=== PATIENT | female | born 1945 | race Caucasian/White ===

== ENCOUNTER 2016-11-27 16:41 | Inpatient (IN) | payer MEDICARE ==
[2016-11-27] MEDS ORDERED: AZITHROMYCIN IV 500 MG in SODIUM CHLORIDE 0.9% 250ML 250 ML IVPB ONE (17:34)
[2016-11-27] MEDS ORDERED: IPRATROPIUM/ALBUTEROL 3 ML VIAL NEB ONE (17:34)
[2016-11-27] MEDS ORDERED: cefTRIAXone SODIUM 1 GM in SODIUM CHL 0.9% 50ML MIN-BAG+ 50 ML IVPB ONE (17:34)
[2016-11-27] MEDS ORDERED: MAGNESIUM SULFATE PREMIX 2GM 2 GM in PREMIX BAG 1 BAG IVPB ONE (17:36)
[2016-11-27] MEDS ORDERED: methylPREDNISolone SODIUM SUC 125 MG/2 ML VIAL IV ONE (17:36)
[2016-11-27] MEDS ORDERED: MAGNESIUM SULFATE PREMIX 2GM 50 ML IVPB ONE (18:10)
--- NOTE | 2016-11-27 18:11 | ED.PDOC ---
History of Present Illness - General Chief Complaint: Respiratory Problem Stated Complaint: shortness of breath Time Seen by Provider: 11/27/16 17:07 Source: patient, family Exam Limitations: no limitations - History of Present Illness Initial Comments: PT SENT TO ED BY PCP AFTER HAVING AN OUTPATIENT CXR DONE TODAY THAT REVEALED A LLL INFILTRATE. PT HAS HAD PROGRESSIVELY WORSENING SOB AND COUGH FOR THE PAST 2 WEEKS NOT RELIEVED WITH OTC MEDS. PT HAS H/O COPD AND USES O2 AT NIGHT BUT HAS NEEDED IT MORE OFTEN SINCE ONSET OF SYMPTOMS. Timing/Duration: constant, getting worse Severity: moderate Activities at Onset: none Possible Cause: chronic episodes Improving Factors: rest Worsening Factors: movement Associated Symptoms: cough, wheezing Allergies/Adverse Reactions: Allergies Cimetidine [From [facility]] Allergy (Mild, Verified 08/03/15 08:59) Hives Codeine Allergy (Mild, Verified 08/03/15 08:59) Hives Hydrocodone Allergy (Mild, Verified 08/03/15 08:59) Vomitting Penicillins Allergy (Mild, Verified 08/03/15 08:59) Hives Sulfa Antibiotics Allergy (Mild, Verified 08/03/15 08:59) Hives Tetanus Immune Globulin Allergy (Verified 08/03/15 08:59) allergic to "human tetanus" Home Medications: Ambulatory Orders Cyclobenzaprine HCl [Flexeril] 10 mg PO BID 01/10/15 Furosemide 40 mg PO DAILY 01/10/15 Glimepiride 1 mg PO DAILY 01/10/15 Lisinopril 40 mg PO DAILY 01/10/15 Metoprolol Tartrate 100 mg PO QAM 01/10/15 Potassium Chloride [Klor-Con] 20 meq PO QAM 01/10/15 Simvastatin 40 mg PO QAM 01/10/15 Verapamil HCl 80 mg PO BID 01/10/15 Warfarin Sodium 2 mg PO DAILY 01/10/15 Xanax mg PO BID 01/10/15 Albuterol Sulfate [Proair Hfa] 2 puff INH Q6H PRN #1 01/11/15 Review of Systems - Review of Systems Constitutional: Denies: chills, fever EENTM: Denies: ear pain, throat pain Respiratory: States: see HPI, cough, short of breath, wheezing Cardiology: Denies: chest pain, palpitations Gastrointestinal/Abdominal: Denies: nausea, vomiting Musculoskeletal: Denies: joint pain, muscle pain Skin: Denies: change in color, dryness Neurological: States: no symptoms reported Endocrine: States: no symptoms reported Past Medical History (General) - Patient Medical History Hx Stroke: Yes - 2009 Hx of COPD: Yes Hx Congestive Heart Failure: No Hx Hypertension: Yes Hx Diabetes: Yes Surgical History: appendectomy, cholecystectomy, Hysterectomy - Vaccination History Hx Influenza Vaccination: Yes Hx Pneumococcal Vaccination: Yes - Social History Hx Tobacco Use: Yes Family Medical History - Family History Mother Family History: Unknown Living Status: Hx Family Congestive Heart Failure: Yes Hx Family Hypertension: Yes Hx Family Diabetes: Yes Hx Family Cancer: Yes - breast Physical Exam - Physical Exam General Appearance: Ill Appearing Eyes, Ears, Nose, Throat Exam: normal ENT inspection Neck: normal inspection Respiratory: wheezing - DIFFUSE Cardiovascular/Chest: regular rate, rhythm, no murmur Gastrointestinal/Abdominal: non tender, soft Extremity: pedal edema - 1+ Neurologic: normal mood/affect, oriented x 3 Skin Exam: normal color, warm/dry Progress - EKG/XRAY/CT EKG: Sinus - 74BPM, LAFB, NL AXIS, no ST T wave changes Xray Comments: OUTPATIENT XRAY SHOWS LLL INFILTRATE Departure - Departure Clinical Impression: COPD exacerbation Pneumonia Qualifiers: Pneumonia type: due to unspecified organism Laterality: left Lung location: lower lobe of lung Qualifier Code: (J18.9) Pneumonia, unspecified organism Time of Disposition: : Disposition: Admit Patient Condition: Fair Departure Forms: ED Discharge - Pt. Copy, Patient Portal Self Enrollment Home Medications: Ambulatory Orders Cyclobenzaprine HCl [Flexeril] 10 mg PO BID 01/10/15 Furosemide 40 mg PO DAILY 01/10/15 Glimepiride 1 mg PO DAILY 01/10/15 Lisinopril 40 mg PO DAILY 01/10/15 Metoprolol Tartrate 100 mg PO QAM 01/10/15 Potassium Chloride [Klor-Con] 20 meq PO QAM 01/10/15 Simvastatin 40 mg PO QAM 01/10/15 Verapamil HCl 80 mg PO BID 01/10/15 Warfarin Sodium 2 mg PO DAILY 01/10/15 Xanax mg PO BID 01/10/15 Albuterol Sulfate [Proair Hfa] 2 puff INH Q6H PRN #1 01/11/15 Decision To Admit - Decistion To Admit Decision to Admit Reason: Admit from ER Decision to Admit Date: 11/27/16 - CASE DISCUSSED WITH DEMOND VALENTINE NP WHO AGREES TO ADMIT Decision to Admit Time: 19:27
[2016-11-27] MEDS ORDERED: SODIUM CHL 0.9% 50ML MIN-BAG+ 50 ML IVPB ONE (18:56)
[2016-11-27] MEDS ORDERED: cefTRIAXone SODIUM 1 GM VIAL ONE (18:56)
[2016-11-27] MEDS ORDERED: AZITHROMYCIN IV 500 MG VIAL IVPB ONE (18:59)
[2016-11-27] MEDS ORDERED: SODIUM CHLORIDE 0.9% 250ML 250 ML ONE (18:59)
[2016-11-27] MEDS ORDERED: SODIUM CHLORIDE 0.9% 100ML 0 ML IVPB ONE (19:01)
--- NOTE | 2016-11-27 20:10 | HP ---
SUPERVISING PHYSICIAN: Alistair Page MD CHIEF COMPLAINT: Shortness of breath. HISTORY OF PRESENT ILLNESS: Ms. Quesada is a 71-year-old, female patient who was referred to the Emergency Room from her primary care provider at [facility]. She was seen for upper respiratory symptoms that included a cough, worsening shortness of breath that had developed over this past weekend. The patient had been trying to treat herself at home with over- the-counter medications without any significant improvement. She went to the clinic and was seen by Caprice Kirkland who then referred her to the Emergency Room after a chest x-ray was completed that showed she had a left lower lobe infiltrative process concerning for pneumonia. The patient noted she continued to worsen over the last several days. She does use O2 at night, but has needed it more often during the day since onset of symptoms. Laboratory studies initially in the Emergency Department showed her to have a normal white count of 7.1, hemoglobin 13.2, hematocrit 40.2, differential without any shift. Chemistries showed sodium 137, potassium 3.4, liver functions all within normal limits. BUN 8, creatinine 1.12, BNP 77.5. Upon admission to the Emergency Department, she was showing low saturations on room air at 88% with some obvious labored respirations and diffuse wheezing that was audible, both inspiration and expiratory. She was given magnesium breathing treatments and started on antibiotics to include Rocephin and azithromycin along with blood cultures completed prior to antibiotic initiation and now is being admitted to the Medical/Surgical Floor for continuation of treatment of left lower lobe pneumonia. PAST MEDICAL HISTORY: 1. Chronic obstructive pulmonary disease. 2. 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 3. 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 The patient is on anticoagulation therapy including Coumadin. 4. Type 2 diabetes mellitus on oral therapy. 5. Gastroesophageal reflux disease. 6. Hyperlipidemia. 7. Hypertension. 8. Irritable bowel syndrome secondary to cholecystectomy. PAST SURGICAL HISTORY: 1. Appendectomy. 2. Cholecystectomy. 3. Hysterectomy. 4. Drainage of vulvar hematoma secondary to Coumadin therapy. HOME MEDICATIONS: 1. Verapamil 80 mg twice daily. 2. Simvastatin 40 mg at bedtime. 3. Potassium chloride 20 mEq q.a.m. 4. Metoprolol 1000 mg twice daily. 5. Albuterol inhaler 2 puffs inhaled q.6h. p.r.n. 6. Lisinopril 40 mg daily. 7. Glimepiride 1 mg at breakfast. 8. Lasix 40 mg twice daily. 9. Lomotil 2.5 mg q.i.d. as needed. 10. Flexeril 10 mg 3 times daily. 11. Warfarin 1 mg every other day. 12. Warfarin 2 mg every other day. 13. Xanax 0.5 mg twice daily. ALLERGIES: CIMETIDINE, CODEINE, HYDROCODONE, PENICILLINS, TETANUS, IMMUNOGLOBULIN, SULFA ANTIBIOTICS. FAMILY HISTORY: Mother is with unknown history with father being at 73 from a myocardial infarction. SOCIAL HISTORY: The patient is a retired, previous nurse aid. She lives in [place]. She is a current smoker, smokes approximately 1 to 5 cigarettes per day , and denies any alcohol or illicit drug use. REVIEW OF SYSTEMS: CONSTITUTIONAL: Denies any fevers, chills. HEENT: Denies ears pain, sore throat, runny nose. RESPIRATORY: As noted in history of present illness, cough, shortness of breath and severe wheezing. CARDIOVASCULAR: Denies chest pain or palpitations. Denies syncopal episodes. GASTROINTESTINAL: Denies nausea or vomiting. Denies diarrhea. NEUROLOGIC: Denies any syncopal episodes, but does have a history of previous cerebrovascular accidents with a left sided residual hemiparesis. PHYSICAL EXAMINATION: VITAL SIGNS: Admission vital signs showed temperature 97.9. Pulse 81. Blood pressure 140/68. Respirations 24. O2 saturation 88% on room air. Admission weight 76.7 kg. GENERAL: The patient appears quite ill with a very dramatic cough and audible wheezing, both inspiratory and expiratory, but she is alert. HEENT: Tympanic membranes clear bilaterally. Oropharynx is pink, mucous membranes mildly dry, but no lesions. NECK: No jugular venous distention noted. CHEST: Diffuse wheezing throughout all cuello with both inspiration and expiratory phase and extended expiratory effort. No rhonchi or rales noted. CARDIOVASCULAR: Regular rate and rhythm without any appreciable murmurs, gallops, or rubs. ABDOMEN: Obese, but soft, nontender. Positive bowel sounds. EXTREMITIES: 1+ pedal edema bilaterally. NEUROLOGIC: The patient is alert and oriented times three. Cranial nerves II- XII are grossly intact as assessed. Facial features are symmetrical. Extraocular movements are within normal limits. There is no nystagmus noted. LABORATORY: White count normal at 7.1, hemoglobin 13.2, hematocrit 40.2, platelet count 309,000, differential without left shift. Coags showed therapeutic INR of 2.550 with PT-T 39.6, PT 28.6. Chemistries showed just a low potassium of 3.4, BUN 8, creatinine 1.12, glucose 120. Liver functions all within normal limits. Urinalysis pending. MICROBIOLOGY: Sputum culture pending. Blood cultures pending. RADIOLOGY: EKG showed sinus rhythm of 74 beats per minute with a left anterior fascicular block. No ST or T wave changes. Outpatient x-ray per radiology interpretation showed a left lower lobe infiltrative process. ASSESSMENT: 1. Acute exacerbation of chronic obstructive pulmonary disease with radiographic evidence concerning for a right lower lobe pneumonia, likely community acquired. 2. Mild hypoxia as noted on initial triage vital signs with the patient satting 88% on room air. 3. History of hypertension. 4. Gastroesophageal reflux disease. 5. Type 2 diabetes mellitus. 6. 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 7. 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 PLAN: The patient will be admitted to the Medical/Surgical Floor for continued treatment and evaluation. She was started on antibiotics after blood cultures were completed that included antibiotics with both Rocephin and azithromycin. We will await sputum culture to help further target antibiotic therapy as possible and continue with current antibiotics until that point. Anticipate length of stay 2 to 3 days. Again, she will be provided with aggressive pulmonary hygiene and repeat laboratory studies and x-rays in the morning for close repeat clinical evaluation. Once her home medications have been updated and verified, we will continue those as previously directed. Until discharge, we will continue to monitor the patient closely and treat appropriately. Once the patient can be discharged home, she will certainly need close clinical followup with her primary care provider, Dr. Ly. #[id number] [facility]
[2016-11-27] MEDS ORDERED: SODIUM CHLORIDE 0.9% (FLUSH) 10 ML SYG IV PRN (21:01)
[2016-11-27] MEDS ORDERED: ACETAMINOPHEN 325 MG TAB PO PRN (21:01)
[2016-11-27] MEDS ORDERED: KCL 20 MEQ/NS 1,000 ML IVS PRN (21:08)
[2016-11-27] MEDS ORDERED: DEXTROSE 50% 25 GM/50 ML SYG IV PRN (21:09)
[2016-11-27] MEDS ORDERED: GLUCAGON INJ 1 MG VIAL SUBCU PRN (21:09)
[2016-11-27] MEDS: IPRATROPIUM/ALBUTEROL 3 ML VIAL INH SCH (21:14)
[2016-11-27] MEDS ORDERED: IV SET AND CAP CHANGE INJ INJ SCH (21:30)
[2016-11-27] MEDS: ALBUTEROL SULFATE 2.5 MG/3 ML VIAL NEB PRN (22:16)
[2016-11-27] MEDS ORDERED: BENZOCAINE-MENTH LOZ (CEPACOL) 1 EA LOZ MT PRN (22:35)
--- NOTE | 2016-11-27 22:38 | PCM.CORE ---
Physician DVT/VTE - Prophylaxis Currently: Patient already on anticoagulation therapy - Nurse DVT Assessment & Total Each Risk Factor Represents 3 Points: Hx of DVT/PE Each Risk Factor Represents 2 Points: Age 60-74 Each Risk Factor Represents 1 Point: Hx of smoking past year Each Risk Factor is 1 Point: Hx of Inflammatory Bowel Disease, Obesity (BMI >25) , Serious Lung disease (pnemonia <1month, COPD, emphysema,etc) DVT Assessment Score: 9 - 5 or more Very High Risk Treatments: Early Ambulation *, Sequential Compression Device Pharmacological: Warfarin daily
[2016-11-27] MEDS: methylPREDNISolone SODIUM SUC 125 MG/2 ML VIAL IV SCH (23:38)
[2016-11-27] MEDS: BENZONATATE PERLES 100 MG CAP PO SCH (23:39)
[2016-11-27] MEDS: guaiFENesin ER TAB 600 MG TAB PO SCH (23:39)
[2016-11-28] MEDS: ALBUTEROL SULFATE 2.5 MG/3 ML VIAL NEB PRN (01:49)
[2016-11-28] MEDS ORDERED: ALPRAZolam 0.5 MG TAB PO ONE (03:30)
[2016-11-28] MEDS: methylPREDNISolone SODIUM SUC 125 MG/2 ML VIAL IV SCH ×4 (04:54→23:03)
[2016-11-28] MEDS: PANTOPRAZOLE SODIUM IV 40 MG VIAL IV SCH (06:03)
[2016-11-28] MEDS: INSULIN LISPRO 100 UNITS/ML PEN SUBCU SCH ×4 (07:37→21:05)
--- NOTE | 2016-11-28 07:44 | RAD ---
EXAM DESCRIPTION: Chest,2 Views CLINICAL HISTORY: Pneumonia COMPARISON: 08/03/2015 TECHNIQUE: Two-views of the chest. FINDINGS: Heart size is normal. Slightly coarsened interstitial markings. No pulmonary edema, alveolar consolidation or pleural effusion.. No acute osseous injury. IMPRESSION: Mildly coarsened interstitium. Lungs are slightly hyperinflated. No acute/focal infiltrate Electronically signed by: Prakash Mckinney MD 11/28/2016 7:43 AM CDT
[2016-11-28] MEDS: IPRATROPIUM/ALBUTEROL 3 ML VIAL INH SCH (08:20)
[2016-11-28] MEDS ORDERED: SODIUM CHL 0.9% 50ML VIAL 9 ML, ALBUTEROL SULFATE NEBS 7.5 MG, IPRATROPIUM BROMIDE NEBS... NEB ONE ×3 (08:47)
[2016-11-28] MEDS: BENZONATATE PERLES 100 MG CAP PO SCH ×3 (08:54→20:31)
[2016-11-28] MEDS: guaiFENesin ER TAB 600 MG TAB PO SCH ×2 (08:54→20:31)
[2016-11-28] MEDS: SODIUM CHLORIDE 0.9% (FLUSH) 10 ML SYG IV SCH ×2 (09:30→20:31)
[2016-11-28] MEDS ORDERED: IPRATROPIUM BROMIDE NEBS 0.5 MG/2.5 ML VIAL NEB ONE (09:49)
[2016-11-28] MEDS: ALPRAZolam 0.5 MG TAB PO PRN ×2 (10:23→17:03)
[2016-11-28] MEDS ORDERED: LEVALBUTEROL NEBS 1.25 MG/3 ML VIAL NEB PRN ×2 (15:02→15:30)
[2016-11-28] MEDS ORDERED: LEVALBUTEROL NEBS 1.25 MG/3 ML VIAL NEB SCH (16:00)
[2016-11-28] MEDS ORDERED: SODIUM CHLORIDE 0.9% 250ML 250 ML ONE (16:05)
[2016-11-28] MEDS ORDERED: cefTRIAXone SODIUM 1 GM VIAL ONE (16:05)
[2016-11-28] MEDS ORDERED: SODIUM CHL 0.9% 50ML MIN-BAG+ 50 ML IVPB ONE (16:05)
[2016-11-28] MEDS ORDERED: AZITHROMYCIN IV 500 MG VIAL IVPB ONE (16:06)
[2016-11-28] MEDS: LEVALBUTEROL NEBS 1.25 MG/3 ML VIAL NEB SCH (16:15)
[2016-11-28] MEDS: cefTRIAXone SODIUM 1 GM in SODIUM CHL 0.9% 50ML MIN-BAG+ 50 ML IVPB SCH (16:53)
[2016-11-28] MEDS: AZITHROMYCIN IV 500 MG in SODIUM CHLORIDE 0.9% 250ML 250 ML IVPB SCH (17:59)
[2016-11-28] MEDS ORDERED: DIPHENOXYLATE HCL/ATROPINE 2.5 MG TAB PO PRN (18:11)
[2016-11-28] MEDS ORDERED: NON-FORMULARY MEDICATION 1 EA MIS (Metoprolol Tartrate [Metoprolol Tartrate] 100 MG) PO SCH (18:12)
[2016-11-28] MEDS ORDERED: VERAPAMIL HCL 80 MG PO SCH (18:12)
[2016-11-28] MEDS: METOPROLOL TARTRATE 50 MG TAB PO SCH (18:37)
[2016-11-28] MEDS ORDERED: SIMVASTATIN 20 MG TAB ONE (19:31)
[2016-11-28] MEDS: CYCLOBENZAPRINE HCL 10 MG TAB PO SCH (20:31)
[2016-11-28] MEDS: VERAPAMIL HCL 40 MG TAB PO SCH (20:31)
[2016-11-28] MEDS: ALPRAZolam 0.5 MG TAB PO SCH (20:33)
[2016-11-28] MEDS ORDERED: NON-FORMULARY MEDICATION 1 EA MIS (Simvastatin [Simvastatin] 40 MG) PO SCH (21:00)
--- NOTE | 2016-11-28 21:25 | PN ---
DATE: 11/28/16 SUPERVISING PHYSICIAN: Prakash Page M.D. SUBJECTIVE: The patient continues to have significant shortness of breath and wheezing this morning, although she remains afebrile. She still has thick sputum and is requiring aggressive pulmonary hygiene. OBJECTIVE: VITAL SIGNS: T max 98.1, pulse 108, blood pressure 155/73, respirations 22, satting 92% on nasal cannula at 2 liters. I's and O's show a the patient balance of 60 with 1260 in, 1200 out. Weight 79.4 kg. CHEST: Diffuse wheezing and rhonchi heard throughout with decreased aeration towards the bases. HEART: Showing a tachycardic rhythm. ABDOMEN: Obese but soft, non- tender. Positive bowel sounds. EXTREMITIES: No clubbing, cyanosis or edema. NEUROLOGIC: She is alert and oriented times three. LABORATORY: White count remains normal at 9.0, hemoglobin 12.8, hematocrit 36.9 , platelet count 175,000. Differential shows a left shift now, although she has been started on Solu-Medrol. Chemistries this morning showed a low potassium of 3.5 with sodium 132 and BUN 11 with creatinine 1.1. Magnesium was normal at 2.0, glucose has been elevated at 229 to 287. MICROBIOLOGY: Sputum culture is pending. Blood cultures are pending. RADIOLOGY: Repeat chest x-ray two view this morning per radiology interpretation shows a mildly coarsened interstitium. Lungs slightly hyperventilated with no acute focal infiltrates. ASSESSMENT: 1. Acute exacerbation of chronic obstructive pulmonary disease with radiographic evidence concerning for a right lower lobe pneumonia, likely community acquired initially on admission with the patient having been started on Rocephin and Azithromycin. 2. Hypoxia on admission with the patient satting 88% initially on room air showing improvement after supplemental oxygen and continued DuoNeb treatments. 3. History of hypertension. 4. Sinus tachycardic noticed on keno writer complicated by delay in restarting home medications to include beta blockers and additional side effects from ongoing Albuterol treatments. 5. History of hypertension. 6. Gastroesophageal reflux disease. 7. Type 2 diabetes mellitus. 8. 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 9. 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 PLAN: The patient continues to show a little improvement this morning. Will try a continuous DuoNeb treatment low dose initially and closely monitor. The patient will be on telemetry. She will continue with antibiotic therapy to include Rocephin and Azithromycin. Will await sputum culture to further assist in antibiotic therapy once completed. Will continue with aggressive pulmonary hygiene and follow the patient closely with repeat radiographic studies and laboratory studies in the morning. Her medications have finally been updated in the computer and reinitiated. Will closely monitor this and plan to change the patient from DuoNeb treatments to Xopenex treatments in efforts to decrease some of the increasing heart rate. Once the patient is clinically able to be discharged, she will need close clinical followup in the outpatient setting with her primary care provider, Dr. Ly. #[id number] [facility]
[2016-11-29] MEDS: methylPREDNISolone SODIUM SUC 125 MG/2 ML VIAL IV SCH ×4 (04:48→23:41)
[2016-11-29] MEDS: PANTOPRAZOLE SODIUM IV 40 MG VIAL IV SCH (06:11)
[2016-11-29] MEDS: LEVALBUTEROL NEBS 1.25 MG/3 ML VIAL NEB SCH (07:35)
[2016-11-29] MEDS ORDERED: LISINOPRIL 10 MG TAB ONE ×2 (07:40→19:45)
[2016-11-29] MEDS: INSULIN LISPRO 100 UNITS/ML PEN SUBCU SCH ×6 (07:42→21:07)
[2016-11-29] MEDS: GLIMEPIRIDE 2 MG TAB PO SCH (07:45)
[2016-11-29] MEDS: METOPROLOL TARTRATE 50 MG TAB PO SCH ×2 (07:46→16:40)
[2016-11-29] MEDS: POTASSIUM CHLORIDE 20 MEQ TAB PO SCH (07:46)
[2016-11-29] MEDS ORDERED: LISINOPRIL 10 MG TAB PO SCH ×2 (09:00→21:00)
[2016-11-29] MEDS: guaiFENesin ER TAB 600 MG TAB PO SCH ×2 (09:23→20:46)
[2016-11-29] MEDS: VERAPAMIL HCL 40 MG TAB PO SCH ×2 (09:23→20:46)
[2016-11-29] MEDS: BENZONATATE PERLES 100 MG CAP PO SCH ×3 (09:26→20:46)
[2016-11-29] MEDS: CYCLOBENZAPRINE HCL 10 MG TAB PO SCH ×3 (09:26→20:46)
[2016-11-29] MEDS: ALPRAZolam 0.5 MG TAB PO SCH ×2 (09:36→20:46)
[2016-11-29] MEDS: SODIUM CHLORIDE 0.9% (FLUSH) 10 ML SYG IV SCH ×2 (11:56→20:47)
[2016-11-29] MEDS: WARFARIN SODIUM 2 MG TAB PO SCH (11:57)
[2016-11-29] MEDS ORDERED: ALBUTEROL SULFATE 2.5 MG/3 ML VIAL NEB PRN (12:17)
[2016-11-29] MEDS: IPRATROPIUM/ALBUTEROL 3 ML VIAL NEB SCH ×3 (12:35→20:41)
[2016-11-29] MEDS ORDERED: cefTRIAXone SODIUM 1 GM VIAL ONE (16:28)
[2016-11-29] MEDS ORDERED: SODIUM CHL 0.9% 50ML MIN-BAG+ 50 ML IVPB ONE (16:28)
[2016-11-29] MEDS: cefTRIAXone SODIUM 1 GM in SODIUM CHL 0.9% 50ML MIN-BAG+ 50 ML IVPB SCH (16:40)
[2016-11-29] MEDS ORDERED: AZITHROMYCIN IV 500 MG VIAL IVPB ONE (18:10)
[2016-11-29] MEDS ORDERED: SODIUM CHLORIDE 0.9% 250ML 250 ML ONE (18:10)
[2016-11-29] MEDS: AZITHROMYCIN IV 500 MG in SODIUM CHLORIDE 0.9% 250ML 250 ML IVPB SCH (18:16)
[2016-11-29] MEDS ORDERED: SIMVASTATIN 20 MG TAB ONE ×2 (19:45→19:46)
[2016-11-29] MEDS ORDERED: ENOXAPARIN SODIUM 40 MG/0.4 ML SYG SUBCU SCH (21:00)
[2016-11-29] MEDS ORDERED: SIMVASTATIN 20 MG TAB PO SCH (21:00)
--- NOTE | 2016-11-29 22:14 | PN ---
DATE: 11/29/16 SUPERVISING PHYSICIAN: Jose Ly M.D. SUBJECTIVE: The patient is doing much better today. She actually was able to rest through the night. She is breathing much easier and remains afebrile. OBJECTIVE: VITAL SIGNS: temperature 97.4, pulse 95, blood pressure 153/83, respirations 18, satting 95% on nasal cannula at 1.5 liters. I's and O's show a positive balance of 590 with 1990 in, 1400 out. CHEST: Continues with some diffuse wheezing but much less prominent than previous days. She now has much better aeration towards the bases, but no rales are noted. HEART: Now showing regular rate and rhythm. ABDOMEN: Soft, non-tender. Positive bowel sounds. EXTREMITIES: No clubbing, cyanosis or edema. NEUROLOGIC: She is alert and oriented times three. LABORATORY: White count did go up today although she is on high dose steroids, it is 23.8. Hemoglobin and hematocrit are stable at 12.6 and 38.5 with platelet count 310,000. Differential shows to be with a left shift. Chemistries show normal electrolytes this morning with 4.1 potassium, BUN 18, creatinine 1.0, glucoses now are 104 to 273, calcium 9.4. MICROBIOLOGY: Sputum culture showed normal gemma at 24 hours. Blood cultures remain negative at 48 hours. ASSESSMENT: 1. Acute exacerbation of chronic obstructive pulmonary disease with a radiograph that is concerning for right lower lobe pneumonia likely community acquired seen on admission with the patient being started on Rocephin and Azithromycin. 2. Hypoxia on admission with the patient satting 80% on room air showing improvement after supplemental oxygen and continued aggressive DuoNeb and bronchodilator treatments. 3. History of hypertension. 4. Sinus tachycardia previously, now resolved after the patient's beta blockade regimen is continued. She is now changed back to Albuterol treatments and tolerating well. 5. History of hypertension, stable. 6. Gastroesophageal reflux disease. 7. Type 2 diabetes mellitus poorly controlled currently as the patient is on corticosteroids. 8. History of 2 previous cerebrovascular accidents, one in 2006 and one in 2008 with residual effect to include left hemiparesis. 9. History of deep venous thrombosis on chronic Coumadin therapy. PLAN: Will continue with aggressive bronchial hygiene today. The patient is showing improvement. Now that her heart rate is controlled better and she feels better, we are going to switch her back to DuoNeb treatments to see how well she tolerates this. She will continue on antibiotics with Azithromycin and Rocephin. Will plan to repeat laboratory studies in the morning as well as repeat chest film. Anticipate possible discharge tomorrow. Until then, will continue to monitor the patient closely and treat appropriately. #[id number] [facility]
[2016-11-30] MEDS: methylPREDNISolone SODIUM SUC 125 MG/2 ML VIAL IV SCH (06:15)
[2016-11-30 06:18] VITALS: TEMP 97.8
[2016-11-30] MEDS: PANTOPRAZOLE SODIUM IV 40 MG VIAL IV SCH (06:20)
[2016-11-30] MEDS ORDERED: SODIUM CHLORIDE 0.9% 250ML 0 ML ONE (07:39)
[2016-11-30] MEDS ORDERED: SODIUM CHL 0.9% 50ML MIN-BAG+ 0 ML IVPB ONE (07:39)
[2016-11-30] MEDS ORDERED: cefTRIAXone SODIUM 1 GM VIAL ONE (07:40)
[2016-11-30] MEDS ORDERED: AZITHROMYCIN IV 500 MG VIAL IVPB ONE (07:41)
[2016-11-30] MEDS: INSULIN LISPRO 100 UNITS/ML PEN SUBCU SCH ×2 (07:56→11:44)
[2016-11-30] MEDS: GLIMEPIRIDE 2 MG TAB PO SCH (07:56)
[2016-11-30] MEDS: POTASSIUM CHLORIDE 20 MEQ TAB PO SCH (07:57)
[2016-11-30] MEDS: METOPROLOL TARTRATE 50 MG TAB PO SCH (07:58)
[2016-11-30] MEDS: IPRATROPIUM/ALBUTEROL 3 ML VIAL NEB SCH (08:39)
--- NOTE | 2016-11-30 09:07 | RAD ---
PROCEDURE: Chest,2 Views CLINICAL HISTORY: copd exacerbation INDICATION: Same as above COMPARISON: 11/28/2016 and 06/03/2011 TECHNIQUE: PA and and lateral chest radiographs were obtained. FINDINGS: Note is again made of underlying changes of COPD and stable mild chronic atelectasis in the right middle lobe, not significantly changed since multiple prior studies There are no discrete airspace infiltrates, pneumothoraces or pleural effusions. The pulmonary vascularity is normal The cardiomediastinal silhouette is unremarkable for patient's age and sex. IMPRESSION: There is no acute pleural-parenchymal process seen in the imaged lung cuello. Note is again made of underlying changes of COPD and stable mild chronic atelectasis in the right middle lobe, not significantly changed since multiple prior studies Electronically signed by: Damian Castillo MD 11/30/2016 9:07 AM CDT
[2016-11-30] MEDS: VERAPAMIL HCL 40 MG TAB PO SCH (09:14)
[2016-11-30] MEDS: CYCLOBENZAPRINE HCL 10 MG TAB PO SCH (09:15)
[2016-11-30] MEDS: SODIUM CHLORIDE 0.9% (FLUSH) 10 ML SYG IV SCH (09:15)
[2016-11-30] MEDS: guaiFENesin ER TAB 600 MG TAB PO SCH (09:15)
[2016-11-30] MEDS: BENZONATATE PERLES 100 MG CAP PO SCH (09:16)
[2016-11-30] MEDS: ALPRAZolam 0.5 MG TAB PO SCH (09:16)
[2016-11-30 10:08] VITALS: BP 158/87; O2SAT 96
[2016-11-30] MEDS: WARFARIN SODIUM 2 MG TAB PO SCH (11:43)
[2016-11-30] MEDS ORDERED: WARFARIN SODIUM 1 MG TAB PO SCH (12:00)
--- NOTE | 2016-12-02 11:37 | DS ---
SUPERVISING PHYSICIAN: Jose Ly MD DISCHARGE DIAGNOSIS: 1. Acute exacerbation of chronic obstructive pulmonary disease with radiographic evidence concerning for a right lower lobe pneumonia, likely community acquired, seen on admission and the patient started on Rocephin and azithromycin. 2. Hypoxia on admission with the patient satting 88% on room air, showing improvement after supplement oxygen and continued aggressive DuoNeb and bronchodilator treatments. 3. History of hypertension, stable. 4. Sinus tachycardia previously noted during admission, resolved after beta blockade resumed, showing normal sinus rhythm at discharge with the patient continuation on albuterol treatments. 5. Gastroesophageal reflux disease. 6. Type 2 diabetes mellitus, poorly controlled currently as the patient is on corticosteroids. 7. 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 8. 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 HISTORY OF PRESENT ILLNESS: Ms. Quesada is a 71-year-old, female patient who presented to the Emergency Room from [facility] for concerns for upper respiratory symptoms that included a cough, worsening shortness of breath that had developed over the past weekend. The patient had been trying to treat herself at home with [id number] medications without any significant improvement. She went to the clinic and was seen by Caprice Kirkland who then referred her to the Emergency Room after a chest x-ray was completed that showed she had a left lower lobe infiltrative process concerning for pneumonia. The patient noted she continued to worsen over the last several days. She does use O2 at night, but had needed it more often during the day since onset of symptoms. Laboratory studies initially in the Emergency Department showed her to have a normal white count of 7.1, hemoglobin 13.2, hematocrit 40.2, differential without any shift. Chemistries showed sodium 137 , potassium 3.4, liver functions all within normal limits. BUN and creatinine were normal with BNP 77.5. Upon admission to the Emergency Department, she was showing low saturations on room air at 88% with some obvious labored respirations and diffuse wheezing that was audible, both inspiratory and expiratory. She was given magnesium and breathing treatments and started on antibiotics to include Rocephin and azithromycin along with blood cultures completed prior to antibiotic initiation and now was admitted to the Medical/ Surgical Floor for continuation of treatment of left lower lobe pneumonia in stable condition. LABORATORY: Initial white count 7.1. After initiation of steroids, white count did increase to 23.8 and at discharge was 22.0. Differential was without significant left shift. Hemoglobin and hematocrit were stable and at discharge were 12.0 and 37.3. Platelet count 330.000. Coagulation studies showed initial PT 28.6, INR 2.50. Discharge of 2.0 and PT-T 22.6. Chemistries on admission showed potassium 3.4, BUN 8, creatinine 1.12. Liver functions within normal limits. Magnesium 2.0. After treatment and at time of discharge, electrolytes were within normal limits, potassium 3.9, BUN 27, creatinine 0.96, calcium 8.8, glucoses were fairly well controlled even despite being on corticosteroids and were down to 105 at time of discharge. MICROBIOLOGY: Sputum culture at 48 hours show normal gemma. Blood cultures times 2 showed no growth at 48 hours. RADIOLOGY: Initial x-ray after admission to the Medical/Surgical Floor showed mildly coarsened interstitium, lungs slightly hyperinflated, no focal infiltrates per radiology interpretation. Final chest x-ray on morning of date of discharge and per radiology interpretation showed no acute pleural parenchymal process, note again was made of chronic obstructive pulmonary disease changes with stable chronic atelectasis in the right middle lobe. HOSPITAL COURSE: Ms. Quesada was admitted as noted in history of present illness for worsening of her chronic obstructive pulmonary disease secondary to concerns for pneumonia. She was started on antibiotics to include Rocephin and azithromycin and albuterol treatments initially. She did well slowly, but on the morning after admission, she continued to show inspiratory and expiratory wheezing. Therefore, she was started on continuous DuoNeb at 7.5 mg for over an hour. This resulted in significant improvement in aeration of her lungs and decrease of her inspiratory and expiratory wheezing. She did have a little increase in her heart rate which resulted from missing her medications, but once those were re-started to include her beta blockers with verapamil, she was initially transitioned to Xopenex, but after control of her heart rate the same morning, she was transitioned back to albuterol and did well. On the morning of discharge, she was without any significant inspiratory or expiratory wheezing , was oxygenating well and was felt clinically well enough to be discharged home. PLAN: The patient is discharged on 11/30/16 to have close clinical followup with her primary care provider, Dr. Ly, in 7 to 10 days after discharge. She was to resume her home home medications as previous to admission and to start new medications as instructed. She was to increase her activity as tolerated to help increase lung function and encouraged to stop smoking and to wear oxygen as directed, but to never wear oxygen when she was smoking. She was to reduce the number of DrDesi Monaes that she was drinking in effort to help control her blood sugar until she was off corticosteroids as it was noted her blood sugars would remain elevated. She is to return to the hospital should she have any change in condition, worsening shortness of breath, fever, or other concerning symptoms. At discharge, she was prescribed: 1. Azithromycin 350 mg daily, #3. 2. Chantix starter pack daily to assist with smoking cessation. 3. Cefdinir 300 mg twice daily, #24. 4. Prednisone taper 10 mg tablets, 60 mg x3 days, 40 mg x3 days, 30 mg x3 days, 20 mg x3 days, 10 mg x4 days. 4. Tessalon Perles 200 mg 3 times daily, #12. DIET: Diabetic. ACTIVITY: Increase as tolerated. CONDITION: Stable. #[id number] [facility]
== END 2016-11-30 12:14 | disposition home or self-care, planned readmission (81) | DRG 190 ==
LOC: ER 16:41 → MS 20:08
PROVIDERS: ADMIT Nurse Practitioner Family; ATTEND Nurse Practitioner Family
DX: J44.0 Chronic obstructive pulmonary disease with (acute) lower respiratory infection (principal); J18.9 Pneumonia, unspecified organism; I69.354 Hemiplegia and hemiparesis following cerebral infarction affecting left non-dominant side; R09.02 Hypoxemia; J44.1 Chronic obstructive pulmonary disease with (acute) exacerbation; I10 Essential (primary) hypertension; R00.0 Tachycardia, unspecified; T48.6X5A Adverse effect of antiasthmatics, initial encounter; K21.9 Gastro-esophageal reflux disease without esophagitis; E11.65 Type 2 diabetes mellitus with hyperglycemia; K58.8 Other irritable bowel syndrome; F17.210 Nicotine dependence, cigarettes, uncomplicated; Y92.230 Patient room in hospital as the place of occurrence of the external cause; E66.9 Obesity, unspecified; Z86.718 Personal history of other venous thrombosis and embolism; Z79.01 Long term (current) use of anticoagulants; Z79.84 Long term (current) use of oral hypoglycemic drugs; Z79.899 Other long term (current) drug therapy; Z88.8 Allergy status to other drugs, medicaments and biological substances; Z88.5 Allergy status to narcotic agent; Z88.0 Allergy status to penicillin; Z88.7 Allergy status to serum and vaccine; Z88.2 Allergy status to sulfonamides; Z66 Do not resuscitate; Z68.25 Body mass index [BMI] 25.0-25.9, adult

== ENCOUNTER 2017-02-13 09:28 | Emergency (ER) | payer MEDICARE ==
--- NOTE | 2017-02-13 10:06 | ED.PDOC ---
History of Present Illness - General Chief Complaint: Lower Extremity Injury Stated Complaint: leg pain /swelling Time Seen by Provider: 02/13/17 10:05 Source: patient, RN notes reviewed, Vital Signs reviewed Exam Limitations: no limitations - History of Present Illness Initial Comments: Lina Quesada 71 y/o female stated had onset of sharp left knee pain since yesterday after propping left knee no history of trauma or overuse injury.No fever no numbness Occurred: yesterday Pain - Lower Extremity: moderate: Left Knee Method of Injury: unknown Improving Factors: rest Worsening Factors: nothing Associated Symptoms: pain on weight bearing Allergies/Adverse Reactions: Allergies Cimetidine [From Tagamet HB] Allergy (Mild, Verified 02/13/17 10:23) Hives Codeine Allergy (Mild, Verified 02/13/17 10:23) Hives Hydrocodone Allergy (Mild, Verified 02/13/17 10:23) Vomitting Penicillins Allergy (Mild, Verified 02/13/17 10:23) Hives Sulfa Antibiotics Allergy (Mild, Verified 02/13/17 10:23) Hives Tetanus Immune Globulin Allergy (Verified 02/13/17 10:23) Other causes swelling Home Medications: Ambulatory Orders ALPRAZolam [Xanax] 0.5 mg PO BID #0 01/10/15 Cyclobenzaprine HCl [Flexeril] 10 mg PO TID 01/10/15 Furosemide 40 mg PO BID 01/10/15 Glimepiride 1 mg PO ACBK 01/10/15 Lisinopril 40 mg PO BEDTIME 01/10/15 Metoprolol Tartrate 100 mg PO BID 01/10/15 Potassium Chloride [Klor-Con] 20 meq PO QAM 01/10/15 Simvastatin 40 mg PO BEDTIME 01/10/15 Verapamil HCl 80 mg PO BID 01/10/15 Warfarin Sodium 0.5 mg PO REMY-OTH-DAY 01/10/15 Albuterol Sulfate [Proair Hfa] 2 puff INH Q6H PRN #1 01/11/15 Diphenoxylate/Atropine [Lomotil Tab] 2.5 mg PO QID PRN 11/27/16 Warfarin Sodium 1 mg PO REMY-OTH-DAY 11/27/16 Albuterol Sulfate Nebs [Proventil Nebs] 2.5 mg INH QID PRN 02/13/17 predniSONE 10 mg PO BID #10 tab 02/13/17 Review of Systems - Review of Systems Constitutional: States: no symptoms reported EENTM: States: no symptoms reported Respiratory: States: no symptoms reported Cardiology: States: no symptoms reported Gastrointestinal/Abdominal: States: no symptoms reported Genitourinary: States: no symptoms reported Musculoskeletal: States: see HPI Skin: States: no symptoms reported Neurological: States: no symptoms reported Endocrine: States: no symptoms reported Hematologic/Lymphatic: States: no symptoms reported Past Medical History (General) - Patient Medical History Hx Seizures: No Hx Stroke: Yes - x2 Hx Asthma: No Hx of COPD: Yes Hx Congestive Heart Failure: No Hx Pacemaker: No Hx Hypertension: Yes Hx Diabetes: Yes Hx MRSA: No Surgical History: appendectomy, cholecystectomy, other - hysterectomy - Vaccination History Hx Influenza Vaccination: Yes Hx Pneumococcal Vaccination: Yes - Social History Hx Tobacco Use: Yes Hx Alcohol Use: No Hx Substance Use: No Hx Physical Abuse: No Hx Emotional Abuse: No - Activities of Daily Living Grooming Ability: Independent Eating (Feeding) Ability: Independent Toileting Ability: Independent Family Medical History - Family History Mother Family History: Unknown Living Status: Hx Family Congestive Heart Failure: Yes Hx Family Hypertension: Yes Hx Family Diabetes: Yes Hx Family Cancer: Yes - breast -mom;lung-dad Physical Exam - Physical Exam General Appearance: Alert, No apparent distress Eyes, Ears, Nose, Throat: PERRL/EOMI, normal ENT inspection, TMs normal, pharynx normal Neck: non-tender, full range of motion, supple Cardiovascular/Respiratory: regular rate, rhythm, no M/R/G, normal peripheral pulses, no JVD, normal breath sounds Gastrointestinal/Abdominal: non-tender, no organomegaly Back: normal inspection, no CVA tenderness, no vertebral tenderness Thigh/Hip: normal inspection, non-tender, no evidence of injury Leg: normal inspection, no evidence of injury Knee: bone tenderness, limited ROM - because of pain, soft tissue tenderness, swelling - imld suprapatellar Ankle: normal inspection, no evidence of injury Neuro/Tendon: normal sensation, normal motor functions, normal tendon functions Mental Status: alert, oriented x 3 Skin: normal color, warm/dry Progress - Progress Progress: 02/13/17 10:17 Vital Signs - 8 hr 02/13/17 10:13 Temperature 98.0 F Pulse Rate [ 54 L Left Radial] Respiratory 20 Rate Blood Pressure 108/56 [Right Arm] O2 Sat by Pulse 95 Oximetry - Results/Orders Results/Orders: 02/13/17 11:46 URINE CULTURE W/COLONY COUNT Stat 02/13/17 12:44 Ketorolac Tromethamine Inj [Toradol Inj] 15 mg IM ONCE ONE Laboratory Results - last 24 hr 02/13/17 02/13/17 02/13/17 10:25 10:25 10:25 WBC 5.7 RBC 4.56 Hgb 13.4 Hct 41.0 MCV 90.1 MCH 29.5 MCHC 32.7 L RDW 13.8 Plt Count 295 MPV 7.3 L Absolute Neuts (auto) 2.90 Absolute Lymphs (auto) 2.00 Absolute Monos (auto) 0.40 Absolute Eos (auto) 0.30 Absolute Basos (auto) 0.10 Neutrophils % 51.3 Lymphocytes % 35.2 Monocytes % 7.3 Eosinophils % 4.9 Basophils % 1.3 PT INR D-Dimer, Quantitative 384 H* Sodium 139 Potassium 4.1 Chloride 101 Carbon Dioxide 28 Anion Gap 14.1 BUN 22 H Creatinine 1.68 H BUN/Creatinine Ratio 13.1 Random Glucose 81 Serum Osmolality 279.9 Uric Acid 9.7 H Calcium 9.8 Total Bilirubin 0.6 AST 20 ALT 21 Alkaline Phosphatase 68 Serum Total Protein 7.3 Albumin 4.3 Globulin 3.0 Albumin/Globulin Ratio 1.4 Urine Color Urine Appearance Urine pH Ur Specific [place] Urine Protein Urine Glucose (UA) Urine Ketones Urine Blood Urine Nitrite Urine Bilirubin Urine Urobilinogen Ur Leukocyte Esterase Urine RBC Urine WBC Ur Epithelial Cells Amorphous Sediment Urine Bacteria 02/13/17 02/13/17 10:25 11:46 WBC RBC Hgb Hct MCV MCH MCHC RDW Plt Count MPV Absolute Neuts (auto) Absolute Lymphs (auto) Absolute Monos (auto) Absolute Eos (auto) Absolute Basos (auto) Neutrophils % Lymphocytes % Monocytes % Eosinophils % Basophils % PT 22.0 H* INR 1.960 D-Dimer, Quantitative Sodium Potassium Chloride Carbon Dioxide Anion Gap BUN Creatinine BUN/Creatinine Ratio Random Glucose Serum Osmolality Uric Acid Calcium Total Bilirubin AST ALT Alkaline Phosphatase Serum Total Protein Albumin Globulin Albumin/Globulin Ratio Urine Color Yellow Urine Appearance Clear Urine pH 5.5 Ur Specific [place] 1.010 Urine Protein Negative Urine Glucose (UA) Negative Urine Ketones Negative Urine Blood Negative Urine Nitrite Negative Urine Bilirubin Negative Urine Urobilinogen 0.2 Ur Leukocyte Esterase Small H Urine RBC 0-1 Urine WBC 0-1 Ur Epithelial Cells 3-5 Amorphous Sediment 1+ Urine Bacteria 0 - EKG/XRAY/CT XRAY: knee - degenerative changes Departure - Departure Clinical Impression: Acute gouty arthropathy Knee pain, acute Qualifiers: Laterality: left Qualified Code(s): M25.562 - Pain in left knee Time of Disposition: 12:48 Disposition: Discharge to Home or Self Care Condition: Fair Instructions: DI for Gout, Gout, Gout (Alternative Therapy) Referrals: Jose Ly MD [Primary Care Provider] - 1-2 Weeks Prescriptions: predniSONE 10 mg PO BID #10 tab Home Medications: Ambulatory Orders ALPRAZolam [Xanax] 0.5 mg PO BID #0 01/10/15 Cyclobenzaprine HCl [Flexeril] 10 mg PO TID 01/10/15 Furosemide 40 mg PO BID 01/10/15 Glimepiride 1 mg PO ACBK 01/10/15 Lisinopril 40 mg PO BEDTIME 01/10/15 Metoprolol Tartrate 100 mg PO BID 01/10/15 Potassium Chloride [Klor-Con] 20 meq PO QAM 01/10/15 Simvastatin 40 mg PO BEDTIME 01/10/15 Verapamil HCl 80 mg PO BID 01/10/15 Warfarin Sodium 0.5 mg PO REMY-OTH-DAY 01/10/15 Albuterol Sulfate [Proair Hfa] 2 puff INH Q6H PRN #1 01/11/15 Diphenoxylate/Atropine [Lomotil Tab] 2.5 mg PO QID PRN 11/27/16 Warfarin Sodium 1 mg PO REMY-OTH-DAY 11/27/16 Albuterol Sulfate Nebs [Proventil Nebs] 2.5 mg INH QID PRN 02/13/17 predniSONE 10 mg PO BID #10 tab 02/13/17 Additional Instructions: Follow up with primary 02/19/2017
[2017-02-13 10:14] VITALS: TEMP 98
--- NOTE | 2017-02-13 10:49 | RAD ---
EXAM DESCRIPTION: Knee,Left 2 or More Views CLINICAL HISTORY: pain COMPARISON: None. IMPRESSION: 2 views of the left knee show no evidence of acute fracture, focal bone destruction, or joint dislocation. 3 compartment osteophytes are seen with moderate narrowing of the medial tibiofemoral compartment consistent with moderate osteoarthritic changes. There is a small suprapatellar joint effusion identified. Moderate enthesophyte of the anterior superior patella is seen. Electronically signed by: Osman Momin MD 02/13/2017 10:48 AM CDT
--- NOTE | 2017-02-13 11:05 | US ---
EXAM DESCRIPTION: Venous,Lower Extremity LT CLINICAL HISTORY: pain left lower extremity pain COMPARISON: None. TECHNIQUE: 2D grayscale and color venous duplex Doppler evaluation of the lower extremity are obtained from groin to calf. FINDINGS: There is normal flow, augmentation to flow, and compressibility of the deep venous vasculature of the left lower extremity with no ultrasound evidence of deep venous thrombosis. IMPRESSION: No ultrasound evidence of deep venous thrombosis . Electronically signed by: Osman Momin MD 02/13/2017 11:04 AM CDT
[2017-02-13] MEDS ORDERED: KETOROLAC TROMETHAMINE INJ 30 MG/ML VIAL IM ONE (12:44)
[2017-02-13 13:32] VITALS: BP 122/59; O2SAT 96
== END 2017-02-13 13:31 | disposition home or self-care (01) ==
LOC: ER 09:28
DX: M10.9 Gout, unspecified (principal); J44.9 Chronic obstructive pulmonary disease, unspecified; I10 Essential (primary) hypertension; E11.9 Type 2 diabetes mellitus without complications; Z88.0 Allergy status to penicillin; Z88.2 Allergy status to sulfonamides; Z88.6 Allergy status to analgesic agent; Z88.7 Allergy status to serum and vaccine; Z79.899 Other long term (current) drug therapy; Z79.01 Long term (current) use of anticoagulants; Z86.73 Personal history of transient ischemic attack (TIA), and cerebral infarction without residual deficits; Z87.891 Personal history of nicotine dependence
CPT/HCPCS: 36415; 73560; 80053; 81001; 84550; 85025; 85379; 85610; 87086; 93971; J1885

== ENCOUNTER → 2017-03-12 | Outpatient (CLI) | payer MEDICARE | END | disposition home or self-care (01) | LOC: US 08:46 | PROVIDERS: ATTEND Family Medicine | DX: E04.1 Nontoxic single thyroid nodule (principal) ==

== ENCOUNTER → 2017-05-13 | Outpatient (CLI) | payer MEDICARE ==
--- NOTE | 2017-05-14 13:17 | MRI ---
EXAM DESCRIPTION: MRI left knee CLINICAL HISTORY: Medial knee pain. Assess for meniscal tear. Instability COMPARISON: None. TECHNIQUE: Multiplanar, multisequence MR images of the left knee FINDINGS: Macerated tear body of the medial meniscus with subluxation and loss of meniscal tissue along the body. Diffuse abnormal signal and fraying of the residual meniscus. Posterior horn intrameniscal degenerative signal with tear involving the inferior articular surface near the free edge. Severe medial femorotibial chondrosis with grade 4 chondrosis over the majority of the weightbearing joint sparing a small portion of the posterior lateral tibia. Subchondral cortical irregularity and diffuse edema. Joint line osteophytes Mild fraying of the free edge lateral meniscus. Grade 2 and grade 3 lateral femorotibial chondrosis most significantly over the posterior weightbearing joint. Small joint line osteophytes Grade 3 chondrosis over the medial patellar facet and apex spanning over about 11 x 16 mm. [place] and medial facet trochlea chondrosis, mostly grade 2. Lateral patellofemoral cartilage intact ACL, PCL, MCL and fibular collateral ligaments are intact. Thin intraligamentous ganglion proximal ACL likely remote nonstructurally significant interstitial partial tear Biceps femoris, popliteus and iliotibial band tendons are normal. Patellar and quadriceps tendons and tendons of the posterior medial knee are intact Large joint effusion with mild synovitis. Balderas's cyst, about 4.8 cm in greatest dimension with thin septations. No intra-articular body IMPRESSION: Macerated tear involving the body of the medial meniscus Severe medial femorotibial osteoarthritis Medial patellofemoral chondrosis Electronically signed by: Prakash Mckinney MD 05/14/2017 1:16 PM CDT
== END ==
LOC: MRI 14:47
PROVIDERS: ATTEND Family Medicine
DX: S83.242D Other tear of medial meniscus, current injury, left knee, subsequent encounter (principal); M17.12 Unilateral primary osteoarthritis, left knee; M93.862 Other specified osteochondropathies, left lower leg

== ENCOUNTER → 2017-10-24 | Outpatient (CLI) | payer MEDICARE ==
--- NOTE | 2017-10-24 17:58 | RAD ---
EXAM DESCRIPTION: Pelvis CLINICAL HISTORY: 72 years Female, PAIN IN LEFT HIP COMPARISON: Previous study May 25, 2011 TECHNIQUE: AP x-ray view of the pelvis and hips FINDINGS: Bones of the pelvic ring appear intact. No fracture. Degenerative disc disease is seen in the lower L-spine. The sacrum appears intact. Severe degenerative narrowing of the left more than right hip joints is seen with deformity of the left femoral head. Left femoral head appears somewhat flattened and there is cystic and sclerotic change in the subchondral bone. Spurring is seen at the left femoral head neck junction. Advanced degenerative osteoarthritis is thought more likely than avascular necrosis with this appearance. Prominent spurring is seen at the inferior left acetabular margin. Right hip is also narrowed and there is spurring of the right femoral head neck junction and inferior margin of the right acetabulum. Healed avulsion injury of the inferior left pubic ramus is seen. This avulsion appeared acute on the previous study. IMPRESSION: Degenerative osteoarthritic changes of the hips, left worse than right. Electronically signed by: Tristen Duncan MD 10/24/2017 5:57 PM [facility]
== END ==
LOC: RAD 09:07
PROVIDERS: ATTEND Orthopaedic Surgery
DX: M25.552 Pain in left hip (principal)

== ENCOUNTER → 2018-05-28 | Outpatient (CLI) | payer MEDICARE | LOC: GMATM 16:35 | PROVIDERS: ATTEND Nurse Practitioner Family | DX: R30.0 Dysuria (principal) ==

== ENCOUNTER → 2018-10-01 | Outpatient (CLI) | payer MEDICARE ==
--- NOTE | 2018-10-01 08:13 | RAD ---
EXAM DESCRIPTION: Pelvis CLINICAL HISTORY: 73 years Female, M25.552 COMPARISON: October 24, 2017 FINDINGS: A single view demonstrates the bony pelvis intact and the bony pelvic ring is not disrupted. Mild right and moderate left hip degenerative arthropathy is present with significant joint space narrowing narrowing and some femoral head deformity evident on the left. No soft tissue pelvic mass or calcific or metallic foreign body is noted. No fracture or dislocation seen. IMPRESSION: Intact bony pelvis with mild right and moderate left hip degenerative arthropathy. Electronically signed by: Prakash Buchanan MD 10/01/2018 8:11 AM [facility]
--- NOTE | 2018-10-01 08:14 | RAD ---
EXAM DESCRIPTION: Knee,Left Complete CLINICAL HISTORY: 73 years, Female, M25.562 COMPARISON: February 13, 2017 TECHNIQUE: Four views left knee FINDINGS: Four views of the left knee demonstrate significant deterioration from prior study with SPECT sclerosis and [id number] medial joint compartment consistent with complete loss of articular cartilage. A significant joint effusion is not apparent. Milder degenerative changes involving the lateral joint compartment and patellofemoral articulation with marginal osteophyte formation is noted. No fracture or dislocation is seen. IMPRESSION: 1. Advanced degenerative changes left knee particularly medial joint compartment with significant deterioration from January 2017. Electronically signed by: Prakash Buchanan MD 10/01/2018 8:[address] [facility]
== END ==
LOC: RAD 07:23
PROVIDERS: ATTEND Orthopaedic Surgery
DX: M12.851 Other specific arthropathies, not elsewhere classified, right hip (principal); M12.852 Other specific arthropathies, not elsewhere classified, left hip; M17.12 Unilateral primary osteoarthritis, left knee

== ENCOUNTER → 2018-12-01 | Outpatient (CLI) | payer MEDICARE ==
--- NOTE | 2018-12-02 10:36 | MRI ---
EXAM DESCRIPTION: MRI right foot CLINICAL HISTORY: Ulceration. Nonhealing wound bottom of the great toe. Swelling and redness. Assess for osteomyelitis COMPARISON: None. TECHNIQUE: Multiplanar, multisequence MR images of the right foot FINDINGS: Open wound plantar skin and subcutaneous soft tissues beneath the metatarsal phalangeal joint of the great toe best seen sagittal images 3 and 4, coronal images 9 through 13. Ulceration with linear defect contiguous with the metatarsal phalangeal joint capsule. Diffuse subcutaneous soft tissue edema and swelling without soft tissue abscess Large metatarsal phalangeal joint effusion. Edema throughout the proximal phalanx sparing the distal epiphysis and in the distal metatarsal metaphysis at ligament/capsular attachments, septic arthritis and osteomyelitis Complete disruption of the flexor hallucis tendon at the level of the joint with mild distal retraction of the distal tendon fragment and proximal retraction of the proximal tendon to the level of the metatarsal metaphysis. No other osteomyelitis or septic arthritis. No septic tenosynovitis Chronic arthrosis at the third tarsometatarsal joint with small regions of cystic change along both sides the joint. No other advanced arthrosis IMPRESSION: Open wound contiguous with the MTP joint great toe. 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
== END ==
LOC: MRI 12:06
PROVIDERS: ATTEND Family Medicine
DX: L97.511 Non-pressure chronic ulcer of other part of right foot limited to breakdown of skin (principal); M86.171 Other acute osteomyelitis, right ankle and foot; S96.001A Unspecified injury of muscle and tendon of long flexor muscle of toe at ankle and foot level, right foot, initial encounter

== ENCOUNTER 2018-12-03 10:23 | Emergency (ER) | payer MEDICARE ==
[2018-12-03] MEDS ORDERED: ATROPINE SULFATE 0.5 MG/5 ML SYRINGE IV ONE (10:51)
--- NOTE | 2018-12-03 10:54 | ED.PDOC ---
History of Present Illness - General Chief Complaint: Cardiovascular Problem Stated Complaint: Report of low BP Time Seen by Provider: 12/03/18 10:42 Source: patient, family Exam Limitations: no limitations - History of Present Illness Initial Comments: was receiving an outpatient dose of vancomycin for a diabetic foot ulcer when she began complaining of weakness. The staff noted her to be bradycardic & hypotensive so she was brought here. She denies any other symptoms except for mild foot pain. No previous episodes or recent changes in her medication regimen. Timing/Duration: unsure Severity: moderate Improving Factors: nothing Worsening Factors: nothing Associated Symptoms: weakness Allergies/Adverse Reactions: [facility]ergy (Mild, Verified 02/13/17 10:23) Hives Codeine Allergy (Mild, Verified 02/13/17 10:23) Hives Hydrocodone Allergy (Mild, Verified 02/13/17 10:23) Vomitting Penicillins Allergy (Mild, Verified 02/13/17 10:23) Hives Sulfa Antibiotics Allergy (Mild, Verified 02/13/17 10:23) Hives Tetanus Immune Globulin Allergy (Verified 02/13/17 10:23) Other causes swelling Home Medications: Ambulatory Orders ALPRAZolam [Xanax] 0.5 mg PO BID #0 01/10/15 Cyclobenzaprine HCl [Flexeril] 10 mg PO TID 01/10/15 Furosemide 40 mg PO BID 01/10/15 Glimepiride 1 mg PO ACBK 01/10/15 Lisinopril 40 mg PO BEDTIME 01/10/15 Metoprolol Tartrate 100 mg PO BID 01/10/15 Potassium Chloride [Klor-Con] 20 meq PO QAM 01/10/15 Simvastatin 40 mg PO BEDTIME 01/10/15 Verapamil HCl 80 mg PO BID 01/10/15 Warfarin Sodium 0.5 mg PO REMY-OTH-DAY 01/10/15 Albuterol Sulfate [Proair Hfa] 2 puff INH Q6H PRN #1 01/11/15 Diphenoxylate/Atropine [Lomotil Tab] 2.5 mg PO QID PRN 11/27/16 Warfarin Sodium 1 mg PO REMY-OTH-DAY 11/27/16 Albuterol Sulfate Nebs [Proventil Nebs] 2.5 mg INH QID PRN 02/13/17 predniSONE 10 mg PO BID #10 tab 02/13/17 Review of Systems - Review of Systems Constitutional: States: see HPI. Denies: chills, fever EENTM: States: no symptoms reported Respiratory: States: no symptoms reported Cardiology: States: no symptoms reported Gastrointestinal/Abdominal: States: no symptoms reported Genitourinary: States: no symptoms reported Musculoskeletal: States: see HPI Skin: States: see HPI Neurological: States: see HPI Hematologic/Lymphatic: States: no symptoms reported, other - takes warfarin for CVA Past Medical History (General) - Patient Medical History Hx Seizures: No Hx Stroke: Yes - 2009 Hx Asthma: No Hx of COPD: Yes Hx Cardiac Disorders: Yes - Hx DVT Hx Congestive Heart Failure: No Hx Pacemaker: No Hx Hypertension: Yes Hx Diabetes: Yes Hx MRSA: No Surgical History: appendectomy, cholecystectomy, Hysterectomy - Vaccination History Hx Influenza Vaccination: Yes - 2017 Hx Pneumococcal Vaccination: Yes - Social History Hx Tobacco Use: Yes Hx Alcohol Use: No Hx Substance Use: No Hx Physical Abuse: No Hx Emotional Abuse: No Family Medical History - Family History Mother Family History: Unknown Living Status: Hx Family Congestive Heart Failure: Yes Hx Family Hypertension: Yes Hx Family Diabetes: Yes Hx Family Cancer: Yes - breast -mom;lung-dad Physical Exam - Physical Exam General Appearance: Alert, Comfortable, No apparent distress Ears, Nose, Throat: hearing grossly normal, normal ENT inspection Neck: supple, normal inspection Respiratory: lungs clear, normal breath sounds, no respiratory distress Cardiovascular/Chest: regular rate, rhythm, no edema, no JVD, bradycardia Gastrointestinal/Abdominal: non tender, soft Extremity: non-tender, no pedal edema, other - bandaged foot ulcer Neurologic: alert, normal mood/affect, oriented x 3 Skin Exam: normal color, warm/dry, rash Progress - Progress Progress: 12/03/18 12:27 After glucagon HR 50 & SBP 97. However, soon reverted back to previous. 12/03/18 13:54 SBP in the 70s with dopamine infusing at 10 mcg/kg/min. 12/03/18 14:53 SBP at 97 with dopamine at 20 mcg/kg/min just prior to departure. Ordered to reduce to 17 mcg/kg/min & titrate to keep SBP > 90. - Results/Orders Results/Orders: Hgb 12.4 K 4.6 Mg 1.3 Tr < 0.02 INR 2.75 Cr 1.66 - EKG/XRAY/CT EKG: no ST T wave changes - junctional rhythm @ 38, nml axis, intervals, QRS, ST segments & T waves XRAY: chest - no acute process - Consult/PCP Time Called: 12:44 - accepted to go to ER Consult/PCP: Dr. Harman - Additional EKG/XRAY/Consults EKG #2: Farhad - HR 41, SB, Sinus, no ST T wave changes, Changed from - previous Departure - Departure Clinical Impression: Bradycardia, Hypomagnesemia Hypotension Qualifiers: Hypotension type: unspecified hypotension type Qualified Code(s): I95.9 - Hypotension, unspecified Time of Disposition: 12:46 Condition: Serious Referrals: Jose Ly MD [Primary Care Provider] - 1-2 Weeks Home Medications: Ambulatory Orders ALPRAZolam [Xanax] 0.5 mg PO BID #0 01/10/15 Cyclobenzaprine HCl [Flexeril] 10 mg PO TID 01/10/15 Furosemide 40 mg PO BID 01/10/15 Glimepiride 1 mg PO ACBK 01/10/15 Lisinopril 40 mg PO BEDTIME 01/10/15 Metoprolol Tartrate 100 mg PO BID 01/10/15 Potassium Chloride [Klor-Con] 20 meq PO QAM 01/10/15 Simvastatin 40 mg PO BEDTIME 01/10/15 Verapamil HCl 80 mg PO BID 01/10/15 Warfarin Sodium 0.5 mg PO REMY-OTH-DAY 01/10/15 Albuterol Sulfate [Proair Hfa] 2 puff INH Q6H PRN #1 01/11/15 Diphenoxylate/Atropine [Lomotil Tab] 2.5 mg PO QID PRN 11/27/16 Warfarin Sodium 1 mg PO REMY-OTH-DAY 11/27/16 Albuterol Sulfate Nebs [Proventil Nebs] 2.5 mg INH QID PRN 02/13/17 predniSONE 10 mg PO BID #10 tab 02/13/17 Critical Care Note - Critical Care Note Total Time (mins): 45 Transfer to Outside Facility - Transfer Information Accepting Provider:: Dr. Whitfield Accepting Facility: [facility] Reason for Transfer: required specialist not available
[2018-12-03] MEDS ORDERED: ATROPINE 1 MG/10 ML SYG IV ONE (10:56)
[2018-12-03] MEDS ORDERED: ONDANSETRON INJ 4 MG/2 ML VIAL IV ONE (11:34)
[2018-12-03] MEDS ORDERED: GLUCAGON INJ 1 MG VIAL IV ONE (11:34)
[2018-12-03] MEDS ORDERED: DOPamine PREMIX 400 MG in PREMIX BAG 1 BAG IVPB SCH (12:30)
[2018-12-03] MEDS ORDERED: MAGNESIUM SULFATE PREMIX 2GM 2 GM in PREMIX BAG 1 BAG IVPB ONE (12:31)
[2018-12-03] MEDS ORDERED: MAGNESIUM SULFATE PREMIX 2GM 50 ML IVPB ONE (12:35)
[2018-12-03] MEDS ORDERED: DOPamine PREMIX 250 ML IVPB ONE (12:35)
--- NOTE | 2018-12-03 12:41 | RAD ---
EXAM DESCRIPTION: Chest,1 View CLINICAL HISTORY: 73 years Female, bradycardia COMPARISON: Radiographs the chest dated 11/30/2016. TECHNIQUE: AP radiograph of the chest was obtained. FINDINGS: Trachea is midline.The cardiomediastinal silhouette is normal in size. The pulmonary vasculature is within normal limits.The lungs are clear with no acute consolidation.No evidence of pleural effusions. IMPRESSION: No acute cardiopulmonary process. Electronically signed by: Sherri Adams MD 12/03/2018 12:38 PM CDT
[2018-12-03 14:19] VITALS: O2SAT 92
[2018-12-03 14:37] VITALS: BP 96/50; TEMP 95.4
== END 2018-12-03 14:52 | disposition home or self-care (01) ==
LOC: ER 10:23
DX: I95.9 Hypotension, unspecified (principal); R00.1 Bradycardia, unspecified; E83.42 Hypomagnesemia; J44.9 Chronic obstructive pulmonary disease, unspecified; I10 Essential (primary) hypertension; E11.9 Type 2 diabetes mellitus without complications; Z87.891 Personal history of nicotine dependence; Z86.73 Personal history of transient ischemic attack (TIA), and cerebral infarction without residual deficits; Z86.718 Personal history of other venous thrombosis and embolism; Z79.01 Long term (current) use of anticoagulants; Z79.899 Other long term (current) drug therapy; Z88.8 Allergy status to other drugs, medicaments and biological substances; Z88.5 Allergy status to narcotic agent; Z88.0 Allergy status to penicillin; Z88.7 Allergy status to serum and vaccine; Z88.2 Allergy status to sulfonamides
CPT/HCPCS: 36415; 71045; 80048; 82550; 82553; 84443; 84484; 85025; 85610; 85730; 93005; J1265; J1610; J2405; J3475

== ENCOUNTER 2018-12-07 17:19 | Inpatient (IN) | payer MEDICARE ==
[2018-12-07] MEDS ORDERED: ONDANSETRON INJ 4 MG/2 ML VIAL IV ONE (17:28)
[2018-12-07] MEDS ORDERED: FUROSEMIDE INJ 40 MG/4 ML VIAL IV ONE (17:30)
[2018-12-07] MEDS ORDERED: LEVALBUTEROL NEBS 1.25 MG/3 ML VIAL NEB ONE (17:31)
[2018-12-07] MEDS ORDERED: methylPREDNISolone SODIUM SUC 125 MG/2 ML VIAL IV ONE (17:31)
[2018-12-07] MEDS ORDERED: IPRATROPIUM BROMIDE NEBS 0.5 MG/2.5 ML VIAL NEB ONE (17:32)
[2018-12-07] MEDS: SODIUM CHLORIDE 0.9% (FLUSH) 10 ML SYG IV PRN (17:38)
--- NOTE | 2018-12-07 17:58 | RAD ---
EXAM DESCRIPTION: Chest,1 View CLINICAL HISTORY: 73 years Female SOB COMPARISON: December 03, 2018. TECHNIQUE: AP view of the chest was obtained. FINDINGS: Cardiac silhouette is enlarged. Central vessels are mildly increased. Right peripheral catheter is present with the tip seen at the atrial caval junction. Mediastinal widening likely related to technical factors. Small bilateral pleural effusions left greater than right. Patchy airspace opacities lower lungs bilaterally left greater than right. No pneumothorax. IMPRESSION: Enlarged heart with mild congestive heart failure new when correlated with the prior study. Atelectatic change versus infiltrate lower lungs bilaterally increased when correlated with the prior study. Electronically signed by: Taylor Dover MD 12/07/2018 5:55 PM CDT
[2018-12-07] MEDS ORDERED: CEFEPIME 2 GM in SODIUM CHL 0.9% 50ML MIN-BAG+ 50 ML IVPB ONE (18:02)
[2018-12-07] MEDS ORDERED: VANCOMYCIN HCL INJ 1,000 MG, VANCOMYCIN HCL INJ 500 MG in SODIUM CHLORIDE 0.9% 250ML 25... IVPB ONE (18:02)
--- NOTE | 2018-12-07 18:08 | ED.PDOC ---
History of Present Illness - General Chief Complaint: Respiratory Problem Stated Complaint: wheezing, weight gain Time Seen by Provider: 12/07/18 17:28 Source: family, RN/MD, old records Exam Limitations: clinical condition - History of Present Illness Initial Comments: PT PRESENTS FROM SWING BED DUE TO RAPID WEIGHT GAIN AND SOB WITH WHEEZING NOTICED TODAY. PT WAS DISCHARGED FROM [facility] TODAY WHERE SHE WAS RECENTLY ADMITTED DUE TO HYPOTENSION AND BRADYCARDIA. PATIENT WAS SENT HERE FOR SWING BED PLACEMENT. DAUGHTER STATES THAT WHILE ADMITTED PT WAS NOT RECEIVING HER LASIX. NURSING STAFF STATES THAT PT HAS HAD 20LB WEIGHT GAIN IN THE PAST 3 DAYS. Timing/Duration: 24 hours Severity: moderate Improving Factors: nothing Worsening Factors: nothing Associated Symptoms: shortness of breath Allergies/Adverse Reactions: Allergies Cimetidine [From [facility]] Allergy (Mild, Verified 02/13/17 10:23) Hives Codeine Allergy (Mild, Verified 02/13/17 10:23) Hives Hydrocodone Allergy (Mild, Verified 02/13/17 10:23) Vomitting Penicillins Allergy (Mild, Verified 02/13/17 10:23) Hives Sulfa Antibiotics Allergy (Mild, Verified 02/13/17 10:23) Hives Tetanus Immune Globulin Allergy (Verified 02/13/17 10:23) Other causes swelling Home Medications: Ambulatory Orders ALPRAZolam [Xanax] 0.5 mg PO BID #0 01/10/15 Cyclobenzaprine HCl [Flexeril] 10 mg PO TID 01/10/15 Furosemide 40 mg PO BID 01/10/15 Glimepiride 1 mg PO ACBK 01/10/15 Lisinopril 40 mg PO BEDTIME 01/10/15 Metoprolol Tartrate 100 mg PO BID 01/10/15 Potassium Chloride [Klor-Con] 20 meq PO QAM 01/10/15 Simvastatin 40 mg PO BEDTIME 01/10/15 Verapamil HCl 80 mg PO BID 01/10/15 Warfarin Sodium 0.5 mg PO REMY-OTH-DAY 01/10/15 Albuterol Sulfate [Proair Hfa] 2 puff INH Q6H PRN #1 01/11/15 Diphenoxylate/Atropine [Lomotil Tab] 2.5 mg PO QID PRN 11/27/16 Warfarin Sodium 1 mg PO REMY-OTH-DAY 11/27/16 Albuterol Sulfate Nebs [Proventil Nebs] 2.5 mg INH QID PRN 02/13/17 predniSONE 10 mg PO BID #10 tab 02/13/17 Review of Systems - Review of Systems Constitutional: States: see HPI EENTM: States: see HPI Respiratory: States: see HPI, short of breath, wheezing Cardiology: States: see HPI Gastrointestinal/Abdominal: States: see HPI Genitourinary: States: see HPI Musculoskeletal: States: see HPI Skin: States: see HPI Neurological: States: see HPI Endocrine: States: see HPI Hematologic/Lymphatic: States: see HPI Past Medical History (General) - Patient Medical History Hx Seizures: No Hx Stroke: Yes - 2009 Hx Asthma: No Hx of COPD: Yes Hx Cardiac Disorders: Yes - Hx DVT Hx Congestive Heart Failure: Yes Hx Pacemaker: No Hx Hypertension: Yes Hx Diabetes: Yes Hx MRSA: No - Vaccination History Hx Influenza Vaccination: Yes - 2017 Hx Pneumococcal Vaccination: Yes - Social History Hx Tobacco Use: Yes Hx Alcohol Use: No Hx Substance Use: No Hx Physical Abuse: No Hx Emotional Abuse: No Family Medical History - Family History Mother Family History: Unknown Living Status: Hx Family Congestive Heart Failure: Yes Hx Family Hypertension: Yes Hx Family Diabetes: Yes Hx Family Cancer: Yes - breast -mom;lung-dad Physical Exam - Physical Exam General Appearance: Obvious distress, Obese, Other - SOMNOLENT Ears, Nose, Throat: hearing grossly normal, other - DRY MUCOSA Neck: full range of motion Respiratory: decreased breath sounds, rales, wheezing Cardiovascular/Chest: no murmur, tachycardia Gastrointestinal/Abdominal: non tender, soft Extremity: pedal edema, swelling - 2-3+ PITTING EDEMA TO BILATERAL LE AND LUE Neurologic: motor weakness - ON LEFT, depressed affect Skin Exam: warm/dry, mottled - KNEES Progress - Progress Progress: 12/07/18 18:21 PT SEEMS TO BE MORE COMFORTABLE AFTER LASIX AND NEB TX. PT LESS TACHYCARDIC, SBP 115. LABS, DIAGNOSTICS AND PLAN DISCUSSED WITH FAMILY AT BEDSIDE. - Results/Orders Results/Orders: Laboratory Tests 12/07/18 12/07/18 17:38 17:38 WBC 19.7 H RBC 3.53 L Hgb 10.6 L Hct 32.2 L MCV 91.2 MCH 30.1 MCHC 33.0 RDW 14.5 Plt Count 245 MPV 7.3 L Absolute Neuts (auto) 17.10 H Absolute Lymphs (auto) 0.80 L Absolute Monos (auto) 1.80 H Absolute Eos (auto) 0.00 Absolute Basos (auto) 0.10 Neutrophils % 86.5 H Lymphocytes % 3.8 L Monocytes % 9.2 H Eosinophils % 0.2 L Basophils % 0.3 PT 46.7 H* INR 4.74 H* PTT (SP) 58.9 H* Sodium 129 L Potassium 3.6 Chloride 101 Carbon Dioxide 19 L Anion Gap 12.6 BUN 18 Creatinine 1.03 BUN/Creatinine Ratio 17.5 Random Glucose 111 H Serum Osmolality 261.5 L Lactic Acid 0.9 Calcium 7.6 L Magnesium 1.9 Creatine Kinase 47 CK-MB (CK-2) 4.0 CK-MB (CK-2) % 8.51 H Troponin I 0.02 B-Natriuretic Peptide 22.4 - EKG/XRAY/CT EKG: Sinus, Tachy - @120BPM, NL INTERVALS, LAD, POOR R WAVE PROGRESSION, Changed from - 12/03/18 PT NOW IN SINUS RHYTHM XRAY: chest - CHF, BILATERAL INFILTRATES Departure - Departure Clinical Impression: HCAP (healthcare-associated pneumonia), Pulmonary edema, Lower extremity edema, COPD exacerbation, Coumadin toxicity Time of Disposition: 18:23 Disposition: Admit Patient Condition: Fair Departure Forms: ED Discharge - Pt. Copy, Patient Portal Self Enrollment Referrals: Jose Ly MD [Primary Care Provider] - 1-2 Weeks Home Medications: Ambulatory Orders ALPRAZolam [Xanax] 0.5 mg PO BID #0 01/10/15 Cyclobenzaprine HCl [Flexeril] 10 mg PO TID 01/10/15 Furosemide 40 mg PO BID 01/10/15 Glimepiride 1 mg PO ACBK 01/10/15 Lisinopril 40 mg PO BEDTIME 01/10/15 Metoprolol Tartrate 100 mg PO BID 01/10/15 Potassium Chloride [Klor-Con] 20 meq PO QAM 01/10/15 Simvastatin 40 mg PO BEDTIME 01/10/15 Verapamil HCl 80 mg PO BID 01/10/15 Warfarin Sodium 0.5 mg PO REMY-OTH-DAY 01/10/15 Albuterol Sulfate [Proair Hfa] 2 puff INH Q6H PRN #1 01/11/15 Diphenoxylate/Atropine [Lomotil Tab] 2.5 mg PO QID PRN 11/27/16 Warfarin Sodium 1 mg PO REMY-OTH-DAY 11/27/16 Albuterol Sulfate Nebs [Proventil Nebs] 2.5 mg INH QID PRN 02/13/17 predniSONE 10 mg PO BID #10 tab 02/13/17 Critical Care Note - Critical Care Note Total Time (mins): 45 Decision To Admit - Decistion To Admit Decision to Admit Reason: Admit from ER Decision to Admit Date: 12/07/18 Decision to Admit Time: 18:23 - CASE DISCUSSED WITH DEMOND VALNETINE NP WHO AGREES TO ADMIT
[2018-12-07] MEDS ORDERED: CEFEPIME 2 GM VIAL ONE (18:10)
[2018-12-07] MEDS ORDERED: SODIUM CHL 0.9% 50ML MIN-BAG+ 50 ML IVPB ONE (18:10)
[2018-12-07] MEDS ORDERED: SODIUM CHLORIDE 0.9% 250ML 250 ML ONE (19:00)
[2018-12-07] MEDS ORDERED: VANCOMYCIN HCL INJ 1,000 MG VIAL IVPB ONE (19:00)
[2018-12-07] MEDS ORDERED: VANCOMYCIN HCL INJ 500 MG VIAL ONE (19:00)
--- NOTE | 2018-12-07 21:53 | HP ---
SUPERVISING PHYSICIAN: Jose Ly MD CHIEF COMPLAINT: Shortness of breath, pneumonia. HISTORY OF PRESENT ILLNESS: Ms. Quesada is a 73-year-old, female patient who was initially sent here from [facility] for Swing Bed admission. She has a diabetic ulcer to the ball of the right foot. She had been in outpatient management, but had a significant acute change last week and due to hypotension and bradycardia, she was sent to [facility] for treatment. On arrival to Swing Bed today, the patient was noted to be in acute distress in regards to her respiratory status. She was obviously short of breath, she was showing significant lower extremity edema. Reported by the patient and family, she had well over a 20-pound weight gain in the last 3 days at [facility]. They had not been providing her with her Lasix per her family's report although I do not have all those records for details. Given the patient's acute situation, she was referred to the Emergency Room for evaluation and clearance to be admitted to Acute Care versus going to Swing Bed. In the Emergency Room, she was found on x-ray to have a significant amount of acute findings including mild congestive heart failure as well as infiltrates in the lower lungs bilaterally. Her CBC showed she had a leukocytosis of 19,700 with a left shift. Coagulation studies showed PT 46.7, INR 4.74 with the patient being on Coumadin therapy. Her chemistry showed a mild hyponatremia with sodium 129. BNP was normal at 22.4 with troponin 0.02. In the Emergency Room, she was seen and examined and given Lasix 60 mg and breathing treatments. She was initiated on antibiotic therapy for healthcare acquired pneumonia. After blood cultures were completed, she was started on vancomycin and cefepime. The patient is now going to be admitted to Acute Care for further evaluation of acute exacerbation of congestive heart failure and help with further management to get the patient stable enough to discharges to Swing Bed for ongoing therapy and continued antibiotic coverage. PAST MEDICAL HISTORY: 1. Chronic obstructive pulmonary disease. 2. Hyperlipidemia. 3. Hypertension. 4. Gastroesophageal reflux disease. 5. Type 2 diabetes mellitus. 6. 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 7. 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 8. Irritable bowel syndrome secondary to cholecystectomy. PAST SURGICAL HISTORY: 1. Appendectomy. 2. Cholecystectomy. 3. Hysterectomy. 4. Drainage of vulvar hematoma. HOME MEDICATIONS: Awaiting verification of updated list in electronic medical record. On admission, listed was: 1. Prednisone 10 mg b.i.d. 2. Warfarin 1 mg every other day. 3. Warfarin 0.5 mg every other day. 4. Verapamil 80 mg b.i.d. 5. Potassium chloride 20 mEq q.a.m. 6. Metoprolol 100 mg b.i.d. 7. Lisinopril 40 mg at bedtime. 8. Glimepiride 1 mg at breakfast. 9. Lasix 40 mg b.i.d. 10. Lomotil 2.5 mg q.i.d. as needed. 11. Flexeril 10 mg t.i.d. as needed. 12. Albuterol inhaler as needed. 13. Xanax 0.5 mg b.i.d. ALLERGIES: TAGAMET, CODEINE, HYDROCODONE, PENICILLIN, SULFA ANTIBIOTICS, TETANUS IMMUNE GLOBULIN. FAMILY HISTORY: Mother from unknown cause. Father at age 73 from myocardial infarction. SOCIAL HISTORY: The patient is retired, previously a nurse aid. She lives in [place], currently at [facility]. She is a current smoker of approximately 1 to 5 cigarettes per day. She denies any alcohol or illicit drug use. REVIEW OF SYSTEMS: CONSTITUTIONAL: Denies fevers or chills. HEENT: Negative for sore throats, earaches, nasal congestion. RESPIRATORY: As noted in history of present illness, ongoing shortness of breath, cough and wheezing. CARDIOVASCULAR: Negative for chest pain, palpitations or syncopal episodes. GASTROINTESTINAL: Negative for nausea, vomiting, diarrhea, constipation or abdominal pain. NEUROLOGIC: Denies syncopal episodes, but does have a history of cerebrovascular accidents with left sided residual hemiparesis. PHYSICAL EXAMINATION: VITAL SIGNS: On admission: Temperature 97.4. Blood pressure 122/99. Heart rate 121. Respirations 26. Oxygen saturation 96% nasal cannula on 3 liters. Admission weight 92.9 kg. Last admission on 11/27/16, admission weight was 76.7 kg. GENERAL: On exam, the patient appears to be in mild distress secondary to increased respiratory effort. She is obese, somnolent. HEENT: Tympanic membranes clear bilaterally. Oropharynx is pink with dry mucous membranes. NECK: Supple, nontender with full range of motion. No jugular venous distention noted. RESPIRATORY: Lung sounds diminished throughout with positive rales and wheezing in all lung cuello. CARDIOVASCULAR: Regular rate and rhythm without any appreciable murmurs, gallops, or rubs. ABDOMEN: Soft, nontender. Positive bowel sounds. EXTREMITIES: There is 2+ pitting edema to bilateral left lower and left upper extremities. Right toe has a bandage in place which is clean and dry. No obvious signs of drainage. NEUROLOGIC: She is obviously showing some weak motor deficits on the left which is residual and a very depressed affect. SKIN: Warm and dry. Mottled from the knees down. LABORATORY: CBC on admission showed white count 19,700 with hemoglobin 10.6, hematocrit 32.2, platelet count 245,000 with differential showing a left shift. Coagulation studies showed PT 46.7, INR 4.74, PTT 58.9. MICROBIOLOGY: Blood cultures pending. Sputum cultures pending. RADIOLOGY: Chest x-ray on admission showed bilateral infiltrates per radiologic interpretation, which are new compared to previous exams. 12-lead EKG showed heart rate 120 with the patient in sinus rhythm. ASSESSMENT: 1. Healthcare acquired pneumonia. 2. Acute onset of congestive heart failure with no echocardiogram available for review at time of admission with the patient having a 20-pound weight gain over the last 3 to 4 days. 3. Acute chronic obstructive pulmonary disease exacerbation secondary to healthcare acquired pneumonia 4. Hypertension. 5. Type 2 diabetes mellitus on oral therapy. 6. Gastroesophageal reflux disease. 7. 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 8. 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 PLAN: The patient is going to be admitted to Acute Care for stabilization prior to going to Swing Bed program. She was given Lasix in the Emergency Room. This will be continued with 40 mg b.i.d. IV. We will closely monitor I&Os. We will work to get her back to a dry weight. She will be on DVT prophylaxis with continued Coumadin, which will be held until she is at a therapeutic level. She will be on insulin sliding scale per protocol. We will get a physical therapy evaluation in the morning. We will continue with antibiotic coverage for healthcare acquired pneumonia with Levaquin, cefepime and vancomycin. Until she can transition to outpatient management, we will repeat labs in the morning as well as chest x-rays as needed and will continue to monitor and treat as clinically needed. #[id number] [facility]
[2018-12-07] MEDS ORDERED: DEXTROSE 50% 25 GM/50 ML SYG IV PRN (22:16)
[2018-12-07] MEDS ORDERED: ONDANSETRON INJ 4 MG/2 ML VIAL IV PRN (22:16)
[2018-12-07] MEDS ORDERED: MAGNESIUM HYDROXIDE 30 ML UD PO PRN (22:16)
[2018-12-07] MEDS ORDERED: GLUCAGON INJ 1 MG VIAL SUBCU PRN (22:16)
[2018-12-07] MEDS ORDERED: VANCOMYCIN PER PHARMACY INJ SCH (22:30)
[2018-12-07] MEDS ORDERED: IPRATROPIUM/ALBUTEROL 3 ML VIAL NEB ONE (22:41)
[2018-12-07] MEDS: levoFLOXacin 750MG IV 750 MG in PREMIX BAG 1 BAG IVPB SCH (22:47)
[2018-12-07] MEDS: IV SET AND CAP CHANGE INJ INJ SCH (22:47)
[2018-12-07] MEDS: LEVALBUTEROL NEBS 1.25 MG/3 ML VIAL INH SCH (22:53)
[2018-12-08] MEDS ORDERED: POTASSIUM CHLORIDE 20 MEQ PO SCH (00:23)
[2018-12-08] MEDS ORDERED: NON-FORMULARY MEDICATION 1 EA MIS (Lisinopril [Lisinopril] 40 MG) PO SCH (00:23)
[2018-12-08] MEDS ORDERED: POTASSIUM CHLORIDE 20 MEQ TAB ONE (00:28)
[2018-12-08] MEDS ORDERED: METOPROLOL TARTRATE 50 MG TAB ONE (00:28)
[2018-12-08] MEDS ORDERED: NON-FORMULARY MEDICATION 1 EA MIS (Metoprolol Tartrate [Metoprolol Tartrate] 100 MG) PO SCH (00:30)
[2018-12-08] MEDS: ALPRAZolam 0.5 MG TAB PO SCH ×3 (00:32→20:22)
[2018-12-08] MEDS: CYCLOBENZAPRINE HCL 10 MG TAB PO SCH ×3 (00:32→20:22)
[2018-12-08] MEDS ORDERED: SODIUM CHL 0.9% 50ML MIN-BAG+ 50 ML IVPB ONE ×3 (06:02→19:22)
[2018-12-08] MEDS ORDERED: CEFEPIME 2 GM VIAL ONE ×3 (06:03→19:22)
[2018-12-08] MEDS: PANTOPRAZOLE SODIUM IV 40 MG VIAL IV SCH (06:08)
[2018-12-08] MEDS: CEFEPIME 2 GM in SODIUM CHL 0.9% 50ML MIN-BAG+ 50 ML IVPB SCH ×2 (06:09→18:27)
[2018-12-08] MEDS: INSULIN LISPRO 100 UNITS/ML PEN SUBCU SCH ×4 (06:55→21:24)
--- NOTE | 2018-12-08 07:17 | RAD ---
EXAM: XR Chest, 1 View CLINICAL HISTORY: The patient is 73 years old and is Female; Pneumonia TECHNIQUE: Frontal view of the chest. COMPARISON: Chest radiograph from 12/07/2018 FINDINGS: LUNGS: There are mild bibasilar densities suggesting atelectasis. These appear slightly improved on the left and slightly increased on the right. PLEURAL SPACE: Unremarkable. No pneumothorax. HEART: Stable mild cardiomegaly. MEDIASTINUM: Unremarkable. BONES/JOINTS: No acute osseous findings. TUBES, LINES AND DEVICES: Right upper extremity PICC line in place, terminating at the cavoatrial junction. UPPER ABDOMEN: Persistent gaseous distention of the stomach. IMPRESSION: 1. Mild bibasilar densities suggesting atelectasis. Pneumonia not excluded. 2. Persistent gaseous distention of the stomach. Electronically signed by: Basia Gooden MD 12/08/2018 7:13 AM CDT
[2018-12-08] MEDS: LEVALBUTEROL NEBS 1.25 MG/3 ML VIAL INH SCH ×4 (07:46→19:58)
[2018-12-08] MEDS: METOPROLOL TARTRATE 50 MG TAB PO SCH ×2 (08:53→20:22)
[2018-12-08] MEDS: FUROSEMIDE INJ 40 MG/4 ML VIAL IV SCH ×2 (08:54→17:33)
[2018-12-08] MEDS ORDERED: SODIUM CHLORIDE 0.9% 500ML 0 ML ONE (12:16)
[2018-12-08] MEDS ORDERED: VANCOMYCIN HCL INJ 1,000 MG VIAL IVPB ONE ×2 (12:17→12:27)
[2018-12-08] MEDS ORDERED: SODIUM CHLORIDE 0.9% 500ML 500 ML ONE (12:27)
[2018-12-08] MEDS: VANCOMYCIN HCL INJ 2,000 MG in SODIUM CHLORIDE 0.9% 500ML 500 ML IVPB SCH (12:27)
[2018-12-08] MEDS: SIMVASTATIN 20 MG TAB PO SCH (20:22)
[2018-12-08] MEDS: LISINOPRIL 10 MG TAB PO SCH (20:22)
[2018-12-08] MEDS: POTASSIUM CHLORIDE 20 MEQ TAB PO SCH (20:22)
--- NOTE | 2018-12-08 20:42 | PN ---
DATE: 12/08/18 SUPERVISING PHYSICIAN: Jose Ly M.D. SUBJECTIVE: The patient notes that she is having much less difficulty breathing today. She has had good results with Lasix. Does not feel quite as swollen. She has had no chest pains, palpitations, nausea, vomiting or diarrhea. OBJECTIVE: VITAL SIGNS: Temperature 97.8, pulse 88, blood p [id number], satting 90 to 94% on nasal cannula at 4 liters at rest with respirations 18. Weight is 92.94 kg which is down from admission of 97.5 kg. GENERAL: The patient is resting comfortably. She appears to be in no acute distress. She is alert. CHEST: Lung sounds are much improved from yesterday with no wheezing or rhonchi. Still continues to be diminished bilaterally. HEART: Regular rate and rhythm. ABDOMEN: Obese but soft, non-tender. Positive bowel sounds. EXTREMITIES: Show continued edema but down from admission to about 1+. NEUROLOGIC: She is alert and oriented times three with no new notable neurologic deficits. Continues with left sided hemiparesis. LABORATORY: White count now is down to 17,000, hemoglobin 10.2, hematocrit 32.1, platelet count 260,000. Differential continues to show a left shift with 7% bands today. PT 43.2 with INR 4.38 which is down from admission of 4.74. Chemistries show an improving sodium at 131, potassium shows to be stable at 3.6, carbon dioxide is normal at 21, BUN 24, creatinine 1.17. Blood sugars range between 104 and 145, calcium 7.6. MICROBIOLOGY: Blood cultures remain negative. RADIOLOGY: Repeat chest x-ray today per radiology interpretation shows mild bibasilar densities suggesting atelectasis, pneumonia not excluded. Persistent gaseous distention of the stomach. ASSESSMENT: 1. Healthcare acquired pneumonia showing response to initiation of antibiotic therapy with both vancomycin, Cefepime and Levaquin. 2. Acute onset of congestive heart failure with no echocardiogram available for review, again with the patient showing a 20-pound weight gain over the last 3 to 4 days prior to admission and responding well to loop diuretics. 3. Acute chronic obstructive pulmonary disease exacerbation secondary to healthcare acquired pneumonia 4. Hypertension. 5. Type 2 diabetes mellitus on oral therapy. 6. Gastroesophageal reflux disease. 7. 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 8. 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 PLAN: Will continue on Acute Care with aggressive management with Lasix to further get the patient down to a dry weight. At this point she is on 40 mg of Lasix b.i.d. She continues with her Krishnamurthy catheter. Will anticipate hopefully being able to remove that within the next 24 to 48 hours once she is showing to be clinically much more stable. Will continue her Coumadin until she comes at a level where she is therapeutic. She is not showing any unexplained bleeding at this point and has no complications. She remains on sliding scale per protocol showing good control of her blood sugars. Will continue with physical therapy evaluations. She continues on antibiotic coverage with Levaquin, Cefepime and vancomycin. Until we have cultures back, will continue to cover empirically as she does show good clinical response to treatment. Will deescalate medications to include hopefully medication of vancomycin in anticipation of discharging to Swing Bed for continued antibiotic therapy. Until she can transition to Swing Bed will continue to monitor and treat as needed. [id number] [facility]
[2018-12-08] MEDS: NICOTINE PATCH 14 MG TD SCH (21:56)
[2018-12-08] MEDS: levoFLOXacin 750MG IV 750 MG in PREMIX BAG 1 BAG IVPB SCH (21:57)
[2018-12-09] MEDS: ALBUTEROL SULFATE 2.5 MG/3 ML VIAL NEB PRN ×2 (00:28→23:34)
[2018-12-09] MEDS: ACETAMINOPHEN 325 MG TAB PO PRN (01:49)
[2018-12-09] MEDS: CEFEPIME 2 GM in SODIUM CHL 0.9% 50ML MIN-BAG+ 50 ML IVPB SCH ×2 (06:12→18:17)
[2018-12-09] MEDS: PANTOPRAZOLE SODIUM IV 40 MG VIAL IV SCH (06:12)
--- NOTE | 2018-12-09 07:06 | RAD ---
EXAM: XR Chest, 1 View CLINICAL HISTORY: The patient is 73 years old and is Female; HCAP; CHF exac TECHNIQUE: Frontal view of the chest. COMPARISON: Chest radiograph from 12/08/2018 FINDINGS: LUNGS: There are mild bibasilar densities suggesting atelectasis. These are not significantly changed compared to the prior study. PLEURAL SPACE: No significant pleural effusion. No obvious pneumothorax. HEART: Mild enlargement of the cardiac silhouette. MEDIASTINUM: Unremarkable. BONES/JOINTS: The bones are unchanged. TUBES, LINES AND DEVICES: Right upper extremity PICC line terminates at the cavoatrial junction. UPPER ABDOMEN: Mild gaseous distention of the stomach again noted. IMPRESSION: No significant interval change. Mild bibasilar densities suggesting atelectasis again demonstrated. Electronically signed by: Basia Gooden MD 12/09/2018 7:03 AM CDT
[2018-12-09] MEDS: INSULIN LISPRO 100 UNITS/ML PEN SUBCU SCH ×4 (07:22→21:11)
[2018-12-09] MEDS: LEVALBUTEROL NEBS 1.25 MG/3 ML VIAL INH SCH ×4 (08:20→19:55)
[2018-12-09] MEDS: ALPRAZolam 0.5 MG TAB PO SCH ×2 (09:23→20:39)
[2018-12-09] MEDS: FUROSEMIDE INJ 40 MG/4 ML VIAL IV SCH ×2 (09:23→17:49)
[2018-12-09] MEDS: METOPROLOL TARTRATE 50 MG TAB PO SCH ×2 (09:23→20:39)
[2018-12-09] MEDS: CYCLOBENZAPRINE HCL 10 MG TAB PO SCH ×2 (09:23→20:40)
[2018-12-09] MEDS: NICOTINE PATCH 14 MG TD SCH (09:41)
[2018-12-09] MEDS ORDERED: SODIUM CHLORIDE 0.9% 500ML 0 ML ONE (11:59)
[2018-12-09] MEDS ORDERED: VANCOMYCIN HCL INJ 1,000 MG VIAL IVPB ONE ×2 (11:59→12:15)
[2018-12-09] MEDS: VANCOMYCIN HCL INJ 2,000 MG in SODIUM CHLORIDE 0.9% 500ML 500 ML IVPB SCH (12:15)
[2018-12-09] MEDS ORDERED: SODIUM CHLORIDE 0.9% 500ML 500 ML ONE (12:15)
--- NOTE | 2018-12-09 18:01 | PN ---
DATE: 12/09/18 SUPERVISING PHYSICIAN: Jose Ly M.D. SUBJECTIVE: The patient continues to show improvement with Lasix. We have diuresed well off 4.5 liters and she is down in weight 12 pounds since admission. She has had no vomiting, nausea or diarrhea or any constipation. She remains afebrile. OBJECTIVE: VITAL SIGNS: Temperature 98.5, pulse 98, blood pressure 144/73, respirations 16, satting 94% on nasal cannula at rest on 3 liters. I's and O's show a negative balance today of 2500 with 2150 in, 4650 out for a total deficit since admission that will equal to a deficit of 3250. Weight again is down to 91.9 kg. GENERAL: The patient is resting comfortably. Appears to be in no distress. CHEST: Lung sounds are diminished bilaterally with just very faint rhonchi heard bilaterally. No wheezing or rales. HEART: Regular rate and rhythm. ABDOMEN: Obese but soft, non-tender. Positive bowel sounds. EXTREMITIES: 1+ edema today which is improved from admission. NEUROLOGIC: She is alert and oriented times three. LABORATORY: White count showing to be at 17,400 with hemoglobin 10.7, hematocrit 33.1, platelet count 280,000. Differential does show a left shift. Coagulation studies show an INR of 4.30. Chemistries show sodium 133, potassium 3.6, BUN 30, creatinine 1.46. Glucose has ranged between 78 and 114. Calcium 7.8. MICROBIOLOGY: Blood cultures remain negative. Sputum culture is pending. RADIOLOGY: Repeat chest x-ray, single view chest this morning per radiology interpretation shows no significant interval changes with mild bibasilar density suggesting atelectasis again demonstrated. ASSESSMENT: 1. Healthcare acquired pneumonia showing response to initiation of antibiotic therapy with both vancomycin, Cefepime and Levaquin. 2. Acute onset of congestive heart failure with no echocardiogram available for review, again with the patient showing a 20-pound weight gain over the last 3 to 4 days prior to admission and responding well to loop diuretics. 3. Acute chronic obstructive pulmonary disease exacerbation secondary to healthcare acquired pneumonia 4. Hypertension. 5. Type 2 diabetes mellitus on oral therapy. 6. Gastroesophageal reflux disease. 7. 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 8. 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 PLAN: Will continue with aggressive management on the Lasix for an additional 24 hours. She has been working with Physical Therapy but is very weak still. I have added CPT to her bronchial hygiene regimen. If she tolerates this will continue with it. Will hold her Coumadin again today as she is still supratherapeutic but no complications are noted. Will await culture results to further target antibiotic therapy at which point we can deescalate the medications, antibiotics as appropriate. Until we can transition her to Swing Bed will continue to monitor and treat as needed. [facility][id number] [facility]
[2018-12-09] MEDS ORDERED: SODIUM CHL 0.9% 50ML MIN-BAG+ 50 ML IVPB ONE ×2 (18:13→19:21)
[2018-12-09] MEDS ORDERED: CEFEPIME 2 GM VIAL ONE ×2 (18:13→19:22)
[2018-12-09] MEDS: POTASSIUM CHLORIDE 20 MEQ TAB PO SCH (20:40)
[2018-12-09] MEDS: LISINOPRIL 10 MG TAB PO SCH (20:40)
[2018-12-09] MEDS: SIMVASTATIN 20 MG TAB PO SCH (20:40)
--- NOTE | 2018-12-09 21:09 | RAD ---
EXAM DESCRIPTION: Chest,1 View CLINICAL HISTORY: 73 years Female, increased sob, tachycardia. COMPARISON: Chest x-ray December 09, 2018 at 6:49 AM FINDINGS: A right upper extremity PICC line is present with tip at the cavoatrial junction. There are opacities in both lower lung zones appearing mildly increased on the right. Blunting of both costophrenic angles demonstrated suggestive of small bilateral pleural effusions. No pneumothorax. Heart size appears normal. Aortic atherosclerosis present Osseous structures are unremarkable. IMPRESSION: 1. Bibasilar pulmonary opacities which may represent atelectasis versus infiltrates appearing mildly increased on the right. 2. Probable small bilateral pleural effusions. Electronically signed by: Gabe Horner MD 12/09/2018 9:06 PM CDT
[2018-12-09] MEDS: levoFLOXacin 750MG IV 750 MG in PREMIX BAG 1 BAG IVPB SCH (22:17)
[2018-12-10] MEDS: CEFEPIME 2 GM in SODIUM CHL 0.9% 50ML MIN-BAG+ 50 ML IVPB SCH ×2 (06:02→17:57)
[2018-12-10] MEDS: PANTOPRAZOLE SODIUM IV 40 MG VIAL IV SCH (06:02)
[2018-12-10] MEDS: ALBUTEROL SULFATE 2.5 MG/3 ML VIAL NEB PRN (06:27)
[2018-12-10] MEDS: INSULIN LISPRO 100 UNITS/ML PEN SUBCU SCH ×4 (07:05→21:44)
[2018-12-10] MEDS: NICOTINE PATCH 14 MG TD SCH (08:19)
[2018-12-10] MEDS: METOPROLOL TARTRATE 50 MG TAB PO SCH ×2 (08:19→20:36)
[2018-12-10] MEDS: ALPRAZolam 0.5 MG TAB PO SCH ×2 (08:19→20:35)
[2018-12-10] MEDS: CYCLOBENZAPRINE HCL 10 MG TAB PO SCH ×2 (08:19→20:36)
[2018-12-10] MEDS: LEVALBUTEROL NEBS 1.25 MG/3 ML VIAL INH SCH ×4 (08:44→20:40)
--- NOTE | 2018-12-10 10:54 | PN ---
SUPERVISING PHYSICIAN: Jose Ly MD DATE: 12/10/18 SUBJECTIVE: The patient is sitting up in her chair in her hospital room. She has no complaints of nausea, vomiting, diarrhea, constipation. She did say she is having a little bit of trouble sleeping and she does have some mild pain to the right foot, but it has not worsened over the last 24 hours. OBJECTIVE: VITAL SIGNS: Temperature 98.6. Heart rate 111. Blood pressure 123/75. Respiratory rate 24. O2 saturation 92% on 2 liters nasal cannula. RESPIRATORY: Diminished breath sounds throughout with a few scattered rhonchi. CARDIAC: Regular rate and rhythm. She is somewhat tachycardic. GASTROINTESTINAL: Abdomen is soft, nondistended, nontender. Bowel sounds are positive. EXTREMITIES: Bilateral +1 edema to her lower extremities. Her right foot has a dressing that is dry and intact. There are no signs of drainage at this time. NEUROLOGIC: Awake, alert and oriented times three. LABORATORY: WBCs 21,200, hemoglobin 10.3, hematocrit 32.4. Sodium 132, potassium 3.8, chloride 98, carbon dioxide 26, BUN 26, creatinine 1.61, calcium 7.9. Sputum culture pending. Preliminary blood cultures show no growth after 48 hours. Chest x-ray shows bibasilar pulmonary opacities which may represent atelectasis versus infiltrate appearing mildly increased on the right. Also, probable small bilateral pleural effusions. All other labs and films have been reviewed via the EMR. ASSESSMENT: 1. Healthcare acquired pneumonia showing response to initiation of antibiotic therapy with both vancomycin, cefepime and Levaquin. 2. Acute onset of congestive heart failure with no echocardiogram available for review, again with the patient showing a 20-pound weight gain over the last 3 to 4 days prior to admission and responding well to loop diuretics. 3. Acute chronic obstructive pulmonary disease exacerbation secondary to healthcare acquired pneumonia 4. Hypertension. 5. Type 2 diabetes mellitus on oral therapy. 6. Gastroesophageal reflux disease. 7. 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 8. 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 PLAN: We will continue present supportive care including continuing her present antibiotic therapy. I have ordered an MRI of her foot and if her drainage in that area continues to be increased, I will have Dr. Oneal possibly do an I&D on that site. I have ordered labs for in the morning. Hopefully in the next day or two she can be discharged to continue her IV antibiotics and be discharged from the Acute Care setting and readmitted at Swing Bed unless she has to go to surgery, and then we will follow Dr. Oneal's recommendations at that point. She does have oxygen at home and wears it at night. We will continue to monitor the patient closely and follow as needed. #[id number] [facility]
[2018-12-10] MEDS ORDERED: SODIUM CHLORIDE 0.9% 500ML 500 ML ONE (11:22)
[2018-12-10] MEDS ORDERED: VANCOMYCIN HCL INJ 1,000 MG VIAL IVPB ONE (11:22)
[2018-12-10] MEDS: VANCOMYCIN HCL INJ 2,000 MG in SODIUM CHLORIDE 0.9% 500ML 500 ML IVPB SCH (11:33)
--- NOTE | 2018-12-10 12:27 | MRI ---
MRI right foot without contrast INDICATION: Cellulitis not improving COMPARISON: December 01 TECHNIQUE: Noncontrast MRI right foot standard protocol FINDINGS: Diffuse cellulitis is again noted. There is evidence of a communicating wound at the plantar aspect of the first MTP joint. There is evidence of septic arthritis of the first MTP joint with adjacent marrow edema in the distal first metatarsal and in the proximal aspect of the proximal phalanx consistent with osteomyelitis. No additional areas of osteomyelitis are noted. There is fragmentation/bipartite medial/tibial hallux sesamoid. There is marrow edema involving the sesamoids on the sagittal STIR images suggesting involvement from the infection. There is extensive cellulitis although a discrete drainable fluid collection is not appreciated. The flexor tendon apparatus tear is again noted although this appears to be partial-thickness on the current study. There is background osteoarthrosis the first MTP joint as well. IMPRESSION: Evidence of ongoing septic arthritis of the first MTP joint with adjacent marrow edema in the distal first metatarsal and proximal phalanx great toe consistent with osteomyelitis with diffuse cellulitis Involvement of the hallux sesamoids with bipartite/fragmented medial/tibial sesamoid Open wound at the plantar aspect of the joint Electronically signed by: Duc Stuart MD 12/10/2018 12:25 PM CDT
[2018-12-10] MEDS ORDERED: CEFEPIME 2 GM VIAL ONE ×2 (17:54→19:32)
[2018-12-10] MEDS ORDERED: SODIUM CHL 0.9% 50ML MIN-BAG+ 50 ML IVPB ONE ×2 (17:54→19:30)
[2018-12-10] MEDS: SIMVASTATIN 20 MG TAB PO SCH (20:35)
[2018-12-10] MEDS: POTASSIUM CHLORIDE 20 MEQ TAB PO SCH (20:36)
[2018-12-10] MEDS: LISINOPRIL 10 MG TAB PO SCH (20:36)
[2018-12-10] MEDS: IV SET AND CAP CHANGE INJ INJ SCH (22:28)
[2018-12-10] MEDS: levoFLOXacin 750MG IV 750 MG in PREMIX BAG 1 BAG IVPB SCH (22:28)
[2018-12-11] MEDS: SODIUM CHLORIDE 0.9% (FLUSH) 10 ML SYG IV PRN (05:54)
[2018-12-11] MEDS: PANTOPRAZOLE SODIUM IV 40 MG VIAL IV SCH (05:54)
[2018-12-11] MEDS: CEFEPIME 2 GM in SODIUM CHL 0.9% 50ML MIN-BAG+ 50 ML IVPB SCH ×2 (05:55→19:00)
[2018-12-11] MEDS: INSULIN LISPRO 100 UNITS/ML PEN SUBCU SCH ×4 (07:04→20:56)
[2018-12-11] MEDS: LEVALBUTEROL NEBS 1.25 MG/3 ML VIAL INH SCH ×4 (09:01→21:08)
[2018-12-11] MEDS: NICOTINE PATCH 14 MG TD SCH (09:57)
[2018-12-11] MEDS: METOPROLOL TARTRATE 50 MG TAB PO SCH ×2 (09:57→20:55)
[2018-12-11] MEDS: ALPRAZolam 0.5 MG TAB PO SCH ×2 (09:57→20:54)
[2018-12-11] MEDS: CYCLOBENZAPRINE HCL 10 MG TAB PO SCH ×2 (09:57→20:55)
[2018-12-11] MEDS ORDERED: FUROSEMIDE 40 MG TAB PO SCH (11:00)
[2018-12-11] MEDS: FUROSEMIDE INJ 20 MG/2 ML VIAL IV SCH ×2 (11:59→17:58)
[2018-12-11] MEDS: VANCOMYCIN HCL INJ 2,000 MG in SODIUM CHLORIDE 0.9% 500ML 500 ML IVPB SCH (12:00)
--- NOTE | 2018-12-11 13:21 | PN ---
SUPERVISING PHYSICIAN: Mike aDle MD DATE: 12/11/18 SUBJECTIVE: The patient is lying in bed asleep. She awakens easily. She denies any pain to her right foot, shortness of breath, chest pain nausea or vomiting. She does state she gets quite weak with any exertion, but this improving slowly. OBJECTIVE: VITAL SIGNS: Temperature 97.7. Heart rate 87. Blood pressure 120/72. Respiratory rate 24. O2 saturation 98% on 3 liters nasal cannula. RESPIRATORY: Diminished breath sounds throughout, but no wheezing or crackles. CARDIAC: Regular rate and rhythm. At times, she is slightly tachycardic. GASTROINTESTINAL: Abdomen is soft, nondistended, nontender. Bowel sounds are positive. EXTREMITIES: She does have a dressing to that right foot that is dry and intact. NEUROLOGIC: Awake, alert and oriented times three. LABORATORY: WBCs have improved to 19,200 with hemoglobin 9.8 and hematocrit 30.9. There is a left shift on her differential. PT 36.7, INR 3.72, PTT 43.1. Sodium 134, potassium 3.8, chloride 100, carbon dioxide 27, anion gap 10.8, BUN 24, creatinine 1.49, calcium 8, magnesium 1.8. Preliminary blood cultures show no growth after 3 days. Sputum culture is pending. Lower extremity MRI shows evidence of ongoing septic arthritis at the first MTP joint with adjacent marrow edema in the distal first metatarsal and proximal phalanx, great toe, consistent with osteomyelitis with diffuse cellulitis, improvement of the hallux sesamoid with bipartite/fragment medial/tibial sesamoid, open wound of the plantar aspect of the joint. All other labs and films have been reviewed via the EMR. ASSESSMENT: 1. Healthcare acquired pneumonia showing response to initiation of antibiotic therapy with both vancomycin, cefepime and Levaquin. 2. Acute onset of congestive heart failure with no echocardiogram available for review, again with the patient showing a 20-pound weight gain over the last 3 to 4 days prior to admission and responding well to loop diuretics. 3. Acute chronic obstructive pulmonary disease exacerbation secondary to healthcare acquired pneumonia 4. Hypertension. 5. Type 2 diabetes mellitus on oral therapy. 6. Gastroesophageal reflux disease. 7. 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 8. 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 PLAN: We will continue present supportive care. I have repeated lab and a chest x-ray in the morning. I changed her Lasix to p.o. starting tomorrow. She will continue with her antibiotic therapy and we will monitor her clinical response as well as watching her WBCs. Hopefully in the next couple of days, we can discharge her from the Acute Care setting and readmit her to Swing Bed for IV antibiotic therapy. I encouraged good pulmonary hygiene. We will continue to monitor the patient closely and follow as needed. #[id number] [facility]
[2018-12-11] MEDS ORDERED: SODIUM CHL 0.9% 50ML MIN-BAG+ 50 ML IVPB ONE ×2 (17:49→19:14)
[2018-12-11] MEDS ORDERED: CEFEPIME 2 GM VIAL ONE ×2 (17:50→19:15)
[2018-12-11] MEDS: levoFLOXacin 750MG IV 750 MG in PREMIX BAG 1 BAG IVPB SCH (17:58)
[2018-12-11] MEDS: POTASSIUM CHLORIDE 20 MEQ TAB PO SCH (20:54)
[2018-12-11] MEDS: SIMVASTATIN 20 MG TAB PO SCH (20:55)
[2018-12-11] MEDS: LISINOPRIL 10 MG TAB PO SCH (20:55)
[2018-12-11] MEDS: ACETAMINOPHEN 325 MG TAB PO PRN (23:19)
[2018-12-12] MEDS: PANTOPRAZOLE SODIUM IV 40 MG VIAL IV SCH (06:23)
[2018-12-12] MEDS: CEFEPIME 2 GM in SODIUM CHL 0.9% 50ML MIN-BAG+ 50 ML IVPB SCH ×2 (06:23→18:09)
[2018-12-12] MEDS: INSULIN LISPRO 100 UNITS/ML PEN SUBCU SCH ×4 (07:10→20:53)
--- NOTE | 2018-12-12 07:28 | RAD ---
EXAM: XR Chest, 1 View CLINICAL HISTORY: The patient is 73 years old and is Female; copd TECHNIQUE: Frontal view of the chest. COMPARISON: No relevant prior studies available. FINDINGS: LUNGS: Slight increased density again visualized projecting over the lower lungs, suggesting atelectasis and/or pneumonia. This is not significantly changed. PLEURAL SPACE: Probable small bilateral pleural effusions again noted. No obvious pneumothorax. HEART: Stable mild enlargement of the cardiac silhouette. MEDIASTINUM: Unremarkable. BONES/JOINTS: No acute osseous findings. TUBES, LINES AND DEVICES: Right upper extremity PICC line in place, terminating in the SVC. IMPRESSION: No significant interval change. Small bilateral pleural effusions with atelectasis and/or pneumonia in the lower lungs. Electronically signed by: Basia Gooden MD 12/12/2018 7:26 AM CDT
[2018-12-12] MEDS ORDERED: FUROSEMIDE 40 MG TAB PO SCH (08:00)
[2018-12-12] MEDS: METOPROLOL TARTRATE 50 MG TAB PO SCH ×2 (08:40→20:34)
[2018-12-12] MEDS: NICOTINE PATCH 14 MG TD SCH (08:41)
[2018-12-12] MEDS: ALPRAZolam 0.5 MG TAB PO SCH ×2 (08:41→20:34)
[2018-12-12] MEDS: CYCLOBENZAPRINE HCL 10 MG TAB PO SCH ×2 (08:41→20:33)
[2018-12-12] MEDS: LEVALBUTEROL NEBS 1.25 MG/3 ML VIAL INH SCH ×4 (08:47→20:28)
[2018-12-12] MEDS ORDERED: MAGNESIUM SULFATE PREMIX 2GM 2 GM in PREMIX BAG 1 BAG IVPB ONE (08:51)
[2018-12-12] MEDS ORDERED: MAGNESIUM SULFATE PREMIX 2GM 50 ML IVPB ONE (09:41)
[2018-12-12] MEDS: guaiFENesin ER TAB 600 MG TAB PO SCH ×2 (11:42→20:33)
--- NOTE | 2018-12-12 12:22 | PN ---
DATE: 12/12/18 SUPERVISING PHYSICIAN: Mike Dale M.D. SUBJECTIVE: The patient is sitting up in her chair in her hospital room. Complains of her sputum breaking up. She is unable to get it up. Otherwise no complaints of shortness of breath, nausea, vomiting, diarrhea or constipation. OBJECTIVE: VITAL SIGNS: Temperature 97.7, heart rate 96, blood pressure 113/69, respiratory rate 20, O2 sat is 96% on 2 liters nasal cannula. RESPIRATORY: Scattered rhonchi throughout, diminished at the bases. CARDIAC: Regular rate and rhythm. GASTROINTESTINAL: Abdomen is soft, nondistended, non-tender. Bowel sounds are positive. EXTREMITIES: There is a trace of pedal edema bilaterally. Bilateral pedal pulses are +1. The wound to the bottom of her right foot is mostly healed over. It is very dry. There is no fluctuance or drainage noted. NEUROLOGIC: She is awake, alert and oriented times three. LABORATORY: WBCs have slightly improved to 18,400 with hemoglobin 9.7, hematocrit 30.9. She does have a left shift on her differentia. Sodium 132, potassium 3.8, chloride 98, carbon dioxide 27, BUN 22, creatinine 1.47. Blood sugars have run between 116 and 126. Magnesium 1.7, calcium 8.2. Preliminary blood cultures show no growth after 4 days. Final sputum culture shows normal respiratory gemma. Chest x-ray shows no significant interval change. Small bilateral pleural effusions with atelectasis and/or pneumonia in the lower lungs. All other labs and films have been reviewed via the EMR. ASSESSMENT: 1. Healthcare acquired pneumonia showing response to initiation of antibiotic therapy with both vancomycin, cefepime and Levaquin. 2. Acute onset of congestive heart failure with no echocardiogram available for review. She responded well to loop diuretics and has been transitioned to p.o. Lasix. 3. Acute chronic obstructive pulmonary disease exacerbation secondary to healthcare acquired pneumonia 4. Hypertension. 5. Type 2 diabetes mellitus on oral therapy. 6. Gastroesophageal reflux disease. 7. 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 8. 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 PLAN: We will continue present supportive care. I will repeat her lab including a PT and INR in the morning. Will hold off on a chest x-ray until Friday. Will need to put some lotion on that foot as it is very dry. I am afraid it may crack. I have added Mucinex to help her with the congestion. I have given her some magnesium replacement. I spoke with Dr. Ly and he would like to keep her in the Acute Care setting until Friday. At that time if she continues to improve clinically we should be able to discharge her from the Acute Care setting and readmit her to Swing Bed for antibiotic therapy. There were some issues with her heart rate. It has been quite elevated greater than 130 on the residential monitor, but each time that has happened after checking the patient, her apical pulse is okay. It is felt to be a telemetry misread, but will monitor that closely and make sure she does not have any elevated heart rates. During those episodes she has had no complaints. Will monitor closely and follow as needed. #[id number] [facility]
[2018-12-12] MEDS: FUROSEMIDE 40 MG TAB PO SCH (13:32)
[2018-12-12] MEDS ORDERED: CEFEPIME 2 GM VIAL ONE ×2 (17:59→19:09)
[2018-12-12] MEDS ORDERED: SODIUM CHL 0.9% 50ML MIN-BAG+ 50 ML IVPB ONE ×2 (17:59→19:08)
[2018-12-12] MEDS: LISINOPRIL 10 MG TAB PO SCH (20:34)
[2018-12-12] MEDS: POTASSIUM CHLORIDE 20 MEQ TAB PO SCH (20:34)
[2018-12-12] MEDS: SIMVASTATIN 20 MG TAB PO SCH (20:34)
[2018-12-12] MEDS: SODIUM CHLORIDE 0.9% (FLUSH) 10 ML SYG IV PRN (20:34)
[2018-12-13] MEDS: CEFEPIME 2 GM in SODIUM CHL 0.9% 50ML MIN-BAG+ 50 ML IVPB SCH ×2 (06:13→19:03)
[2018-12-13] MEDS: PANTOPRAZOLE SODIUM IV 40 MG VIAL IV SCH (06:13)
[2018-12-13] MEDS: INSULIN LISPRO 100 UNITS/ML PEN SUBCU SCH ×4 (07:17→20:48)
[2018-12-13] MEDS: FUROSEMIDE 40 MG TAB PO SCH ×2 (07:37→13:09)
[2018-12-13] MEDS: LEVALBUTEROL NEBS 1.25 MG/3 ML VIAL INH SCH ×4 (08:35→20:02)
[2018-12-13] MEDS: METOPROLOL TARTRATE 50 MG TAB PO SCH ×2 (09:09→20:38)
[2018-12-13] MEDS: NICOTINE PATCH 14 MG TD SCH (09:09)
[2018-12-13] MEDS: CYCLOBENZAPRINE HCL 10 MG TAB PO SCH ×2 (09:09→20:36)
[2018-12-13] MEDS: guaiFENesin ER TAB 600 MG TAB PO SCH ×2 (09:09→20:36)
[2018-12-13] MEDS: ALPRAZolam 0.5 MG TAB PO SCH ×2 (09:09→20:34)
[2018-12-13] MEDS ORDERED: VANCOMYCIN HCL INJ 500 MG VIAL ONE (11:42)
[2018-12-13] MEDS ORDERED: SODIUM CHLORIDE 0.9% 250ML 250 ML ONE (11:42)
[2018-12-13] MEDS ORDERED: VANCOMYCIN HCL INJ 1,000 MG VIAL IVPB ONE (11:43)
[2018-12-13] MEDS: WARFARIN SODIUM 2 MG TAB PO SCH (11:57)
[2018-12-13] MEDS: VANCOMYCIN HCL INJ 1,000 MG, VANCOMYCIN HCL INJ 500 MG in SODIUM CHLORIDE 0.9% 250ML 25... IVPB SCH (11:57)
--- NOTE | 2018-12-13 15:07 | PN ---
DATE: 12/13/18 SUPERVISING PHYSICIAN: Mike Dale M.D. SUBJECTIVE: The patient is sitting up in her chair eating lunch. She has no complaints of nausea, vomiting, diarrhea or constipation. She feels much better but she still does not understand why she cannot have more fluids to drink, and I explained to her her fluid restriction due to her chronic hyponatremia and cautioned her that she would have to watch fluids on discharge. She has no complaint of pain in the right foot. OBJECTIVE: VITAL SIGNS: Temperature 97.8, heart rate 96, blood pressure 129/77, respiratory rate 18, O2 sat 100% on 2 liters nasal cannula. RESPIRATORY: Essentially clear to auscultation. She is slightly diminished at the bases. No crackles or wheezing noted. CARDIAC: Regular rate and rhythm. GASTROINTESTINAL: Abdomen is soft, nondistended, non-tender. Bowel sounds are positive. EXTREMITIES: Bilateral pedal pulses are palpable at +1. She has a trace of pedal edema bilaterally. NEUROLOGIC: She is awake, alert and oriented times three. LABORATORY: WBCs continue to slowly improve to 17,400 with a stable hemoglobin and hematocrit of 9.8 and 31.1. There is no shift on her differential. INR is 1.81 today. Sodium 133, potassium 3.8, chloride 98, carbon dioxide 28, BUN 20, creatinine 1.41. Glucose has run between 108 and 195. Final blood cultures show no growth after 5 days. All other labs and films have been reviewed via the EMR. ASSESSMENT: 1. Healthcare acquired pneumonia showing response to initiation of antibiotic therapy with antibiotics of vancomycin, cefepime and Levaquin. 2. History of recent diagnosis of osteomyelitis of the left great toe, transferred here from [facility] in [place]. Again, she will be on chronic vancomycin, cefepime and Levaquin, and fdc antibiotic therapy. 3. Acute onset of congestive heart failure with no echocardiogram available for review. She responded well to IV loop diuretics and has been transitioned to her routine oral Lasix. 4. Chronic obstructive pulmonary disease with recent exacerbation secondary to healthcare acquired pneumonia. Her exacerbation of COPD has resolved. 5. Hypertension. 6. Type 2 diabetes mellitus on oral therapy. 7. Gastroesophageal reflux disease. 8. History of cerebrovascular accident secondary to blood clots. She has some mild left sided paresis and is on Coumadin therapy. 9. 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 She has had a supratherapeutic INR for most of her hospital stay. Today it is slightly subtherapeutic and her Coumadin has been restarted. PLAN: We will continue present supportive care. I have repeated her lab in the morning as we are continuing to monitor her white count as it is still elevated but is slowly improving. I have restarted her outpatient dosing of Warfarin. She gets 2 every other day and then 1 every other day. I did start the 2 mg today and I have rechecked her INR in the morning. Her dosing may need to be adjusted. Hopefully the patient can be discharged from the Acute Care setting and readmitted to [facility] tomorrow for continued antibiotic therapy. She does have a Krishnamurthy catheter that was placed at [facility] and at some point we will need to do bladder training and discontinue that catheter. Will continue to monitor closely and follow as needed. #[id number] [facility]
[2018-12-13] MEDS: levoFLOXacin 750MG IV 750 MG in PREMIX BAG 1 BAG IVPB SCH (17:27)
[2018-12-13] MEDS ORDERED: SODIUM CHL 0.9% 50ML MIN-BAG+ 50 ML IVPB ONE ×2 (18:23→19:48)
[2018-12-13] MEDS ORDERED: CEFEPIME 2 GM VIAL ONE ×2 (18:24→19:49)
[2018-12-13] MEDS: LISINOPRIL 10 MG TAB PO SCH (20:35)
[2018-12-13] MEDS: POTASSIUM CHLORIDE 20 MEQ TAB PO SCH (20:35)
[2018-12-13] MEDS: SIMVASTATIN 20 MG TAB PO SCH (20:35)
[2018-12-13] MEDS: ACETAMINOPHEN 325 MG TAB PO PRN (20:37)
[2018-12-14] MEDS: IV SET AND CAP CHANGE INJ INJ SCH (05:49)
[2018-12-14] MEDS: CEFEPIME 2 GM in SODIUM CHL 0.9% 50ML MIN-BAG+ 50 ML IVPB SCH ×2 (05:52→16:52)
[2018-12-14] MEDS: SODIUM CHLORIDE 0.9% (FLUSH) 10 ML SYG IV PRN ×2 (05:53→20:32)
[2018-12-14] MEDS: PANTOPRAZOLE SODIUM IV 40 MG VIAL IV SCH (05:53)
[2018-12-14] MEDS: LEVALBUTEROL NEBS 1.25 MG/3 ML VIAL INH SCH ×4 (08:56→20:10)
[2018-12-14] MEDS: ALPRAZolam 0.5 MG TAB PO SCH ×2 (08:59→20:32)
[2018-12-14] MEDS: guaiFENesin ER TAB 600 MG TAB PO SCH ×2 (08:59→20:32)
[2018-12-14] MEDS: INSULIN LISPRO 100 UNITS/ML PEN SUBCU SCH ×4 (09:00→21:00)
[2018-12-14] MEDS: METOPROLOL TARTRATE 50 MG TAB PO SCH ×2 (09:00→20:32)
[2018-12-14] MEDS: NICOTINE PATCH 14 MG TD SCH (09:00)
[2018-12-14] MEDS: CYCLOBENZAPRINE HCL 10 MG TAB PO SCH ×2 (09:00→20:32)
[2018-12-14] MEDS: FUROSEMIDE 40 MG TAB PO SCH ×2 (09:00→11:58)
[2018-12-14] MEDS ORDERED: VANCOMYCIN HCL INJ 500 MG VIAL ONE (11:48)
[2018-12-14] MEDS ORDERED: SODIUM CHLORIDE 0.9% 250ML 250 ML ONE (11:48)
[2018-12-14] MEDS ORDERED: VANCOMYCIN HCL INJ 1,000 MG VIAL IVPB ONE (11:49)
[2018-12-14] MEDS: VANCOMYCIN HCL INJ 1,000 MG, VANCOMYCIN HCL INJ 500 MG in SODIUM CHLORIDE 0.9% 250ML 25... IVPB SCH (11:57)
[2018-12-14] MEDS ORDERED: WARFARIN SODIUM 1 MG TAB PO SCH (12:00)
[2018-12-14] MEDS ORDERED: SODIUM CHL 0.9% 50ML MIN-BAG+ 50 ML IVPB ONE ×2 (16:50→19:12)
[2018-12-14] MEDS ORDERED: CEFEPIME 2 GM VIAL ONE ×2 (16:50→19:13)
[2018-12-14] MEDS: LISINOPRIL 10 MG TAB PO SCH (20:32)
[2018-12-14] MEDS: POTASSIUM CHLORIDE 20 MEQ TAB PO SCH (20:32)
[2018-12-14] MEDS: SIMVASTATIN 20 MG TAB PO SCH (20:34)
--- NOTE | 2018-12-14 21:50 | PN ---
DATE: 12/14/18 SUPERVISING PHYSICIAN: Prakash Page M.D. SUBJECTIVE: The patient is resting in the bedside chair. She reports that she feels much better than she did when she came into the hospital initially, She has had no further complaints. She is able to work with Physical Therapy but is significantly weakened. OBJECTIVE: VITAL SIGNS: Temperature 97.9, pulse 79, blood pressure 150/81, respirations 17, satting 96% on nasal cannula at 2 liters at rest. GENERAL: The patient is resting comfortably. Appears to be in no acute distress. CHEST: Lungs were clear to auscultation bilaterally without any rhonchi, wheezing or rales. HEART: Regular rate and rhythm without appreciable murmurs, gallops, or rubs. ABDOMEN: Soft, non-tender. Positive bowel sounds. EXTREMITIES: Bilateral lower extremities are showing 2+ edema from the ankles down with some reddish discoloration and cool to touch. This may be a factor of just being in a chair for an extended time. Will reassess once the patient has been up with her feet and legs up to further distribute her fluids and decrease the swelling. NEUROLOGIC: She is alert and oriented times three with continued left sided weakness due to previous stroke. LABORATORY: White count 16,000, hemoglobin is stable at 9.2, hematocrit 28.8, platelet count 284,000. Differential does continue to show a left shift. Coagulation studies show PT 19.4 with INR 1.95. Chemistries show sodium 134, potassium 3.8, BUN 1.45, creatinine 18. Blood sugars range between 129 and 148. Magnesium 1.8. Urinalysis: Nothing to report. Vancomycin trough on 12/11/18 was 31.1. RADIOLOGY: No additional radiographic studies today. ASSESSMENT: 1. Healthcare acquired pneumonia showing response to initiation of antibiotic therapy with antibiotics of vancomycin, cefepime and Levaquin. 2. History of recent diagnosis of osteomyelitis of the left great toe, transferred here from [facility] in [place]. Again, she will be on chronic vancomycin, cefepime and Levaquin, and computer terminal operator antibiotic therapy. 3. Acute onset of congestive heart failure with no echocardiogram available for review. She responded well to IV loop diuretics and has been transitioned to her routine oral Lasix. 4. Chronic obstructive pulmonary disease with recent exacerbation secondary to healthcare acquired pneumonia. Her exacerbation of COPD has resolved. 5. Hypertension. 6. Type 2 diabetes mellitus on oral therapy. 7. Gastroesophageal reflux disease. 8. History of cerebrovascular accident secondary to blood clots. She has some mild left sided paresis and is on Coumadin therapy. 9. 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 She has had a supratherapeutic INR for most of her hospital stay. Today it is slightly subtherapeutic and her Coumadin has been restarted. PLAN: Will continue with aggressive pulmonary hygiene and supportive care awaiting final culture results. Will continue to encourage her to keep her legs elevated while she is in bed. Should she continue to have decreased circulation to both extremities, will get an ultrasound to further rule out coagulation study. Hopefully will be able to discharge to Swing Bed tomorrow. Again, I will touch base with Dr. Worthington to followup with actual plan of care. She continues to have a Krishnamurthy catheter in place and PICC line which is showing to be without any complications or signs of infection. Until we can transition her to outpatient management, will continue to monitor and treat as needed. #[id number] [facility]
[2018-12-15] MEDS: CEFEPIME 2 GM in SODIUM CHL 0.9% 50ML MIN-BAG+ 50 ML IVPB SCH (06:06)
[2018-12-15] MEDS: PANTOPRAZOLE SODIUM IV 40 MG VIAL IV SCH (06:06)
[2018-12-15] MEDS: LEVALBUTEROL NEBS 1.25 MG/3 ML VIAL INH SCH ×2 (07:25→12:25)
[2018-12-15] MEDS: INSULIN LISPRO 100 UNITS/ML PEN SUBCU SCH ×2 (07:37→12:40)
[2018-12-15] MEDS: NICOTINE PATCH 14 MG TD SCH (09:39)
[2018-12-15] MEDS: guaiFENesin ER TAB 600 MG TAB PO SCH (09:39)
[2018-12-15] MEDS: ALPRAZolam 0.5 MG TAB PO SCH (09:39)
[2018-12-15] MEDS: FUROSEMIDE 40 MG TAB PO SCH ×2 (09:39→12:41)
[2018-12-15] MEDS: METOPROLOL TARTRATE 50 MG TAB PO SCH (09:39)
[2018-12-15] MEDS: WARFARIN SODIUM 2 MG TAB PO SCH (09:39)
[2018-12-15] MEDS: CYCLOBENZAPRINE HCL 10 MG TAB PO SCH (09:39)
[2018-12-15 11:51] VITALS: O2SAT 95
[2018-12-15 15:05] VITALS: BP 118/70; TEMP 98.2
[2018-12-15] MEDS ORDERED: VANCOMYCIN HCL INJ 1,000 MG, VANCOMYCIN HCL INJ 500 MG in SODIUM CHLORIDE 0.9% 250ML 25... IVPB SCH (23:00)
--- NOTE | 2018-12-16 10:08 | DS ---
SUPERVISING PHYSICIAN: Prakash Page MD ADMISSION DIAGNOSIS 1. Healthcare acquired pneumonia. 2. Acute onset of congestive heart failure with no echocardiogram available for review at time of admission with the patient having a 20-pound weight gain over the last 3 to 4 days. 3. Acute chronic obstructive pulmonary disease exacerbation secondary to healthcare acquired pneumonia 4. Hypertension. 5. Type 2 diabetes mellitus on oral therapy. 6. Gastroesophageal reflux disease. 7. 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 8. 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 DISCHARGE DIAGNOSIS: 1. Healthcare acquired pneumonia showing response to initiation of antibiotic therapy with both vancomycin, Cefepime and Levaquin. 2. History of recent diagnosis of osteomyelitis of left great toe, recently transferred from [facility] in [place] for ongoing vancomycin therapy for treatment as well as need for acute care treatment for pneumonia considered to be healthcare acquired with Cefepime and Levaquin, now patient showing resolution of pneumonia with required ongoing treatment for osteomyelitis. 3. Acute chronic obstructive pulmonary disease exacerbation secondary to healthcare acquired pneumonia 4. Hypertension. 5. Type 2 diabetes mellitus on oral therapy. 6. Gastroesophageal reflux disease. 7. 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 8. History of previous cerebrovascular accident secondary to blood clots with some mild left-sided hemiparesis on chronic Coumadin therapy with INR showing to be subtherapeutic. 9. 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 REASON FOR HOSPITALIZATION: Ms. Quesada is a 73-year-old, female patient who was initially sent here from [facility] for Swing Bed admission. She has a diabetic ulcer to the ball of the right foot. She had been in outpatient management, but had a significant acute change last week and due to hypotension and bradycardia, she was sent to [facility] for treatment. On arrival to Swing Bed today, the patient was noted to be in acute distress in regards to her respiratory status. She was obviously short of breath, she was showing significant lower extremity edema. Reported by the patient and family, she had well over a 20-pound weight gain in the last 3 days at [facility]. They had not been providing her with her Lasix per her family's report although I do not have all those records for details. Given the patient's acute situation, she was referred to the Emergency Room for evaluation and clearance to be admitted to Acute Care versus going to Swing Bed. In the Emergency Room, she was found on x-ray to have a significant amount of acute findings including mild congestive heart failure as well as infiltrates in the lower lungs bilaterally. Her CBC showed she had a leukocytosis of 19,700 with a left shift. Coagulation studies showed PT 46.7, INR 4.74 with the patient being on Coumadin therapy. Her chemistry showed a mild hyponatremia with sodium 129. BNP was normal at 22.4 with troponin 0.02. In the Emergency Room, she was seen and examined and given Lasix 60 mg and breathing treatments. She was initiated on antibiotic therapy for healthcare acquired pneumonia. After blood cultures were completed, she was started on vancomycin and cefepime. The patient is now going to be admitted to Acute Care for further evaluation of acute exacerbation of congestive heart failure and help with further management to get the patient stable enough to discharges to Swing Bed for ongoing therapy and continued antibiotic coverage. LABORATORY: Initial white count on admission was 19,000, it did go up to a maximum of 21,000 with a left shift, 7% bands, with treatment of Cefepime, Levaquin, it was noted white count was returning to baseline levels at 14,700 osteomyelitis of the right great toe. Coagulation studies showed initial supratherapeutic INR at 4.38, by discharge was 1.84 on the INR. Chemistries showed a low sodium of 129, with treatment prior to discharge sodium had normalized to 135. All other electrolytes were within normal limits. Discharge creatinine was 1.56 with initial creatinine on admission being 1.03, however, the patient was very aggressively diuresed off with Lasix. Blood sugars ranged between 88 and 163. Urinalysis showed a small amount of blood, otherwise within normal limits. There was noted 1+ budding yeast, a small amount of mucus on microscopic. Vancomycin trough on 12/11 was elevated to 31, on 12/15 second vancomycin was 28.6. MICROBIOLOGY: Final blood culture showed no growth at 5 days. Sputum culture showed just rare mixed gemma. HOSPITAL COURSE: Ms. Quesada was initially to be placed in Swing Bed on admission to [facility]. On arrival, the patient was found to be very edematous, short of breath and was sent to the Emergency Room for evaluation. She was stabilized in the Emergency Room for congestive heart failure exacerbation and found to have healthcare acquired pneumonia. She was started on antibiotic coverage with triple coverage with Cefepime, vancomycin and Levaquin. She did show good response to treatment. It was felt that the patient had shown good clinical response medically and was cleared to transfer to Swing Bed. She was cleared by physical therapy as a good candidate for Swing Bed and therefore she is going to be discharged from Acute Care and admitted directly to a Swing Bed program. #[id number] [facility]
== END 2018-12-15 14:18 | disposition swing bed (61) | DRG 291 ==
LOC: ER 17:19 → MS 21:50 → INTOOBSV 21:50 → OBSVTOIN 21:50 → UNDODISIN 12-10 09:54
PROVIDERS: ADMIT Nurse Practitioner Family; ATTEND Nurse Practitioner Family
DX: I11.0 Hypertensive heart disease with heart failure (principal); J18.9 Pneumonia, unspecified organism; J44.1 Chronic obstructive pulmonary disease with (acute) exacerbation; J44.0 Chronic obstructive pulmonary disease with (acute) lower respiratory infection; I69.352 Hemiplegia and hemiparesis following cerebral infarction affecting left dominant side; E87.1 Hypo-osmolality and hyponatremia; I50.9 Heart failure, unspecified; E11.69 Type 2 diabetes mellitus with other specified complication; K21.9 Gastro-esophageal reflux disease without esophagitis; E78.5 Hyperlipidemia, unspecified; E66.9 Obesity, unspecified; R79.1 Abnormal coagulation profile; F17.210 Nicotine dependence, cigarettes, uncomplicated; Y95 Nosocomial condition; Z66 Do not resuscitate; Z86.718 Personal history of other venous thrombosis and embolism; Z79.01 Long term (current) use of anticoagulants; Z90.49 Acquired absence of other specified parts of digestive tract; Z79.52 Long term (current) use of systemic steroids; Z79.84 Long term (current) use of oral hypoglycemic drugs; Z88.5 Allergy status to narcotic agent; Z88.0 Allergy status to penicillin; Z88.7 Allergy status to serum and vaccine; Z88.8 Allergy status to other drugs, medicaments and biological substances; Z88.2 Allergy status to sulfonamides; Z82.49 Family history of ischemic heart disease and other diseases of the circulatory system; Z83.3 Family history of diabetes mellitus; Z68.27 Body mass index [BMI] 27.0-27.9, adult

== ENCOUNTER 2018-12-15 14:24 | Inpatient (IN) | payer MEDICARE ==
[2018-12-15] MEDS ORDERED: GLUCAGON INJ 1 MG VIAL SUBCU PRN (16:53)
[2018-12-15] MEDS ORDERED: DEXTROSE 50% 25 GM/50 ML SYG IV PRN (16:53)
[2018-12-15] MEDS ORDERED: SODIUM PHOS/BIPHOS ENEMA ADULT 133 ML BTTL PR PRN (16:53)
[2018-12-15] MEDS ORDERED: MAGNESIUM HYDROXIDE 30 ML UD PO PRN (16:53)
[2018-12-15] MEDS ORDERED: ALBUTEROL INHALER 64 PUFF/8GM INH PRN (17:10)
[2018-12-15] MEDS ORDERED: VANCOMYCIN PER PHARMACY INJ SCH (17:30)
[2018-12-15] MEDS ORDERED: FUROSEMIDE 40 MG TAB PO SCH (17:30)
[2018-12-15] MEDS ORDERED: VANCOMYCIN PER PHARMACY IVPB SCH (17:30)
[2018-12-15] MEDS ORDERED: LISINOPRIL 10 MG TAB ONE (19:07)
[2018-12-15] MEDS ORDERED: GLIMEPIRIDE 2 MG TAB ONE (19:07)
[2018-12-15] MEDS ORDERED: METOPROLOL TARTRATE 50 MG TAB ONE (19:07)
[2018-12-15] MEDS ORDERED: POTASSIUM CHLORIDE 20 MEQ TAB ONE (19:07)
[2018-12-15] MEDS: DIPHENOXYLATE HCL/ATROPINE 2.5 MG TAB PO PRN (20:49)
[2018-12-15] MEDS: CYCLOBENZAPRINE HCL 10 MG TAB PO SCH (20:49)
[2018-12-15] MEDS: ALPRAZolam 0.5 MG TAB PO SCH (20:49)
[2018-12-15] MEDS: NON-FORMULARY MEDICATION 1 EA MIS (Metoprolol Tartrate [Metoprolol Tartrate] 100 MG) PO SCH (20:50)
[2018-12-15] MEDS ORDERED: POTASSIUM CHLORIDE 20 MEQ PO SCH (21:00)
[2018-12-15] MEDS ORDERED: NON-FORMULARY MEDICATION 1 EA MIS (Lisinopril [Lisinopril] 40 MG) PO SCH (21:00)
[2018-12-15] MEDS: ALBUTEROL SULFATE 2.5 MG/3 ML VIAL NEB PRN (21:02)
[2018-12-15] MEDS: INSULIN LISPRO 100 UNITS/ML PEN SUBCU SCH (21:05)
[2018-12-16] MEDS ORDERED: NON-FORMULARY MEDICATION 1 EA MIS (Glimepiride [Glimepiride] 1 MG) PO SCH (07:00)
[2018-12-16] MEDS: INSULIN LISPRO 100 UNITS/ML PEN SUBCU SCH ×4 (07:30→22:00)
[2018-12-16] MEDS: DIPHENOXYLATE HCL/ATROPINE 2.5 MG TAB PO PRN (07:38)
[2018-12-16] MEDS ORDERED: SIMVASTATIN 20 MG TAB ONE (08:04)
[2018-12-16] MEDS ORDERED: METOPROLOL TARTRATE 50 MG TAB ONE ×2 (08:04→19:01)
[2018-12-16] MEDS ORDERED: NON-FORMULARY MEDICATION 1 EA MIS (Simvastatin [Simvastatin] 40 MG) PO SCH (09:00)
[2018-12-16] MEDS: DOCUSATE SODIUM 100 MG CAP PO SCH (09:07)
[2018-12-16] MEDS: CYCLOBENZAPRINE HCL 10 MG TAB PO SCH ×2 (09:15→20:42)
[2018-12-16] MEDS: ALPRAZolam 0.5 MG TAB PO SCH ×2 (09:16→20:42)
[2018-12-16] MEDS: NON-FORMULARY MEDICATION 1 EA MIS (Metoprolol Tartrate [Metoprolol Tartrate] 100 MG) PO SCH (09:16)
[2018-12-16] MEDS ORDERED: VANCOMYCIN HCL INJ 1,000 MG, VANCOMYCIN HCL INJ 500 MG in SODIUM CHLORIDE 0.9% 250ML 25... IVPB SCH (11:00)
[2018-12-16] MEDS ORDERED: VANCOMYCIN HCL INJ 1,000 MG VIAL IVPB ONE (12:00)
[2018-12-16] MEDS ORDERED: WARFARIN SODIUM 1 MG TAB PO SCH (12:00)
[2018-12-16] MEDS ORDERED: SODIUM CHLORIDE 0.9% 250ML 250 ML ONE (12:00)
[2018-12-16] MEDS ORDERED: VANCOMYCIN HCL INJ 500 MG VIAL ONE (12:00)
[2018-12-16] MEDS: VANCOMYCIN HCL INJ 1,000 MG, VANCOMYCIN HCL INJ 500 MG in SODIUM CHLORIDE 0.9% 250ML 25... IVPB SCH (12:07)
[2018-12-16] MEDS: WARFARIN SODIUM 1 MG TAB PO SCH (12:44)
[2018-12-16] MEDS ORDERED: POTASSIUM CHLORIDE 20 MEQ TAB ONE (19:01)
[2018-12-16] MEDS: LISINOPRIL 10 MG TAB PO SCH (20:41)
[2018-12-16] MEDS: METOPROLOL TARTRATE 50 MG TAB PO SCH (20:42)
[2018-12-16] MEDS: POTASSIUM CHLORIDE 20 MEQ TAB PO SCH (20:42)
[2018-12-16] MEDS: ALBUTEROL SULFATE 2.5 MG/3 ML VIAL NEB PRN (21:30)
[2018-12-17] MEDS: GLIMEPIRIDE 2 MG TAB PO SCH (06:50)
[2018-12-17] MEDS: CYCLOBENZAPRINE HCL 10 MG TAB PO SCH ×2 (09:38→21:10)
[2018-12-17] MEDS: SIMVASTATIN 20 MG TAB PO SCH (09:39)
[2018-12-17] MEDS: METOPROLOL TARTRATE 50 MG TAB PO SCH ×2 (09:39→21:09)
[2018-12-17] MEDS: ALPRAZolam 0.5 MG TAB PO SCH ×2 (09:39→21:10)
[2018-12-17] MEDS: INSULIN LISPRO 100 UNITS/ML PEN SUBCU SCH ×4 (09:40→21:08)
[2018-12-17] MEDS: DOCUSATE SODIUM 100 MG CAP PO SCH (09:42)
[2018-12-17] MEDS: WARFARIN SODIUM 2 MG TAB PO SCH (11:56)
[2018-12-17] MEDS ORDERED: VANCOMYCIN HCL INJ 500 MG VIAL ONE (19:10)
[2018-12-17] MEDS ORDERED: SODIUM CHLORIDE 0.9% 250ML 250 ML ONE (19:11)
[2018-12-17] MEDS ORDERED: VANCOMYCIN HCL INJ 1,000 MG VIAL IVPB ONE (19:12)
[2018-12-17] MEDS: POTASSIUM CHLORIDE 20 MEQ TAB PO SCH (21:09)
[2018-12-17] MEDS: LISINOPRIL 10 MG TAB PO SCH (21:10)
[2018-12-17] MEDS: NICOTINE PATCH 21 MG TD SCH (21:17)
[2018-12-17] MEDS: ALBUTEROL SULFATE 2.5 MG/3 ML VIAL NEB PRN (21:55)
[2018-12-18] MEDS: VANCOMYCIN HCL INJ 1,000 MG, VANCOMYCIN HCL INJ 500 MG in SODIUM CHLORIDE 0.9% 250ML 25... IVPB SCH (00:18)
[2018-12-18] MEDS: INSULIN LISPRO 100 UNITS/ML PEN SUBCU SCH ×4 (07:04→21:02)
[2018-12-18] MEDS: GLIMEPIRIDE 2 MG TAB PO SCH (07:38)
[2018-12-18] MEDS: WARFARIN SODIUM 1 MG TAB PO SCH ×2 (09:00→09:44)
[2018-12-18] MEDS: CYCLOBENZAPRINE HCL 10 MG TAB PO SCH ×2 (09:45→20:58)
[2018-12-18] MEDS: NICOTINE PATCH 21 MG TD SCH (09:45)
[2018-12-18] MEDS: SIMVASTATIN 20 MG TAB PO SCH (09:45)
[2018-12-18] MEDS: REMOVE OLD PATCH TOP SCH (09:45)
[2018-12-18] MEDS: ALPRAZolam 0.5 MG TAB PO SCH ×2 (09:45→20:58)
[2018-12-18] MEDS: METOPROLOL TARTRATE 50 MG TAB PO SCH ×2 (09:45→20:58)
[2018-12-18] MEDS: DOCUSATE SODIUM 100 MG CAP PO SCH (09:46)
[2018-12-18] MEDS: ACETAMINOPHEN 500 MG TAB PO PRN (16:18)
[2018-12-18] MEDS: LISINOPRIL 10 MG TAB PO SCH (20:58)
[2018-12-18] MEDS: POTASSIUM CHLORIDE 20 MEQ TAB PO SCH (20:58)
[2018-12-18] MEDS: ALBUTEROL SULFATE 2.5 MG/3 ML VIAL NEB PRN (21:10)
[2018-12-19] MEDS: ACETAMINOPHEN 500 MG TAB PO PRN ×2 (03:57→20:38)
[2018-12-19] MEDS: ALBUTEROL SULFATE 2.5 MG/3 ML VIAL NEB PRN (04:40)
[2018-12-19] MEDS: GLIMEPIRIDE 2 MG TAB PO SCH (07:16)
[2018-12-19] MEDS: INSULIN LISPRO 100 UNITS/ML PEN SUBCU SCH ×4 (07:58→21:33)
[2018-12-19] MEDS: CYCLOBENZAPRINE HCL 10 MG TAB PO SCH ×2 (08:48→20:39)
[2018-12-19] MEDS: DOCUSATE SODIUM 100 MG CAP PO SCH (08:48)
[2018-12-19] MEDS: SIMVASTATIN 20 MG TAB PO SCH (08:48)
[2018-12-19] MEDS: METOPROLOL TARTRATE 50 MG TAB PO SCH ×2 (08:48→20:38)
[2018-12-19] MEDS: NICOTINE PATCH 21 MG TD SCH (08:49)
[2018-12-19] MEDS: ALPRAZolam 0.5 MG TAB PO SCH ×2 (08:49→20:38)
[2018-12-19] MEDS: REMOVE OLD PATCH TOP SCH (08:50)
[2018-12-19] MEDS: WARFARIN SODIUM 2 MG TAB PO SCH (08:58)
[2018-12-19] MEDS ORDERED: SODIUM CHLORIDE 0.9% 250ML 250 ML ONE (12:28)
[2018-12-19] MEDS ORDERED: VANCOMYCIN HCL INJ 500 MG VIAL ONE (12:28)
[2018-12-19] MEDS ORDERED: VANCOMYCIN HCL INJ 1,000 MG VIAL IVPB ONE (12:29)
[2018-12-19] MEDS: VANCOMYCIN HCL INJ 1,000 MG, VANCOMYCIN HCL INJ 500 MG in SODIUM CHLORIDE 0.9% 250ML 25... IVPB SCH (12:35)
[2018-12-19] MEDS: LISINOPRIL 10 MG TAB PO SCH (20:38)
[2018-12-19] MEDS: POTASSIUM CHLORIDE 20 MEQ TAB PO SCH (20:42)
[2018-12-20] MEDS: GLIMEPIRIDE 2 MG TAB PO SCH (06:38)
[2018-12-20] MEDS: INSULIN LISPRO 100 UNITS/ML PEN SUBCU SCH ×4 (07:32→21:15)
[2018-12-20] MEDS: DOCUSATE SODIUM 100 MG CAP PO SCH (10:04)
[2018-12-20] MEDS: CYCLOBENZAPRINE HCL 10 MG TAB PO SCH ×2 (10:05→20:26)
[2018-12-20] MEDS: REMOVE OLD PATCH TOP SCH (10:05)
[2018-12-20] MEDS: ALPRAZolam 0.5 MG TAB PO SCH ×2 (10:05→20:27)
[2018-12-20] MEDS: NICOTINE PATCH 21 MG TD SCH (10:05)
[2018-12-20] MEDS: SIMVASTATIN 20 MG TAB PO SCH (10:05)
[2018-12-20] MEDS: METOPROLOL TARTRATE 50 MG TAB PO SCH ×2 (10:05→20:26)
[2018-12-20] MEDS: WARFARIN SODIUM 1 MG TAB PO SCH (10:05)
[2018-12-20] MEDS: FUROSEMIDE 40 MG TAB PO SCH (13:23)
[2018-12-20] MEDS: ALBUTEROL SULFATE 2.5 MG/3 ML VIAL NEB PRN (19:10)
[2018-12-20] MEDS ORDERED: VANCOMYCIN HCL INJ 500 MG VIAL ONE (19:52)
[2018-12-20] MEDS ORDERED: SODIUM CHLORIDE 0.9% 250ML 250 ML ONE (19:52)
[2018-12-20] MEDS ORDERED: VANCOMYCIN HCL INJ 1,000 MG VIAL IVPB ONE (19:53)
[2018-12-20] MEDS: ACETAMINOPHEN 500 MG TAB PO PRN (20:25)
[2018-12-20] MEDS: POTASSIUM CHLORIDE 20 MEQ TAB PO SCH (20:26)
[2018-12-20] MEDS: DIPHENOXYLATE HCL/ATROPINE 2.5 MG TAB PO PRN (20:26)
[2018-12-20] MEDS: LISINOPRIL 10 MG TAB PO SCH (20:27)
[2018-12-20] MEDS: VANCOMYCIN HCL INJ 1,000 MG, VANCOMYCIN HCL INJ 500 MG in SODIUM CHLORIDE 0.9% 250ML 25... IVPB SCH (23:53)
[2018-12-21] MEDS: GLIMEPIRIDE 2 MG TAB PO SCH (06:38)
[2018-12-21] MEDS: INSULIN LISPRO 100 UNITS/ML PEN SUBCU SCH ×4 (08:01→21:33)
[2018-12-21] MEDS: WARFARIN SODIUM 2 MG TAB PO SCH (08:03)
[2018-12-21] MEDS: FUROSEMIDE 40 MG TAB PO SCH ×2 (08:03→12:54)
[2018-12-21] MEDS: SIMVASTATIN 20 MG TAB PO SCH (08:04)
[2018-12-21] MEDS: CYCLOBENZAPRINE HCL 10 MG TAB PO SCH ×2 (08:04→21:32)
[2018-12-21] MEDS: ALPRAZolam 0.5 MG TAB PO SCH ×2 (08:04→21:33)
[2018-12-21] MEDS: NICOTINE PATCH 21 MG TD SCH (08:04)
[2018-12-21] MEDS: METOPROLOL TARTRATE 50 MG TAB PO SCH ×2 (08:07→21:32)
[2018-12-21] MEDS: REMOVE OLD PATCH TOP SCH (08:08)
[2018-12-21] MEDS: DOCUSATE SODIUM 100 MG CAP PO SCH (08:08)
--- NOTE | 2018-12-21 09:55 | HP ---
SUPERVISING PHYSICIAN: Prakash Page MD CHIEF COMPLAINT: Weakness and osteomyelitis of the right great toe. HISTORY OF PRESENT ILLNESS: Ms. Quesada is a 80-year-old, female patient that initially was to come to Swing Bed through [facility] for continuation of antibiotic therapy for diabetic ulcer of the ball of the right foot. On admission, she was initially found to be very unstable and in exacerbation of congestive heart failure. She was stabilized and then treated on Acute Care aggressively for both exacerbation of congestive heart failure and healthcare acquired pneumonia with treatment of vancomycin, Levaquin and cefepime. She showed good response to treatment in regards to the pneumonia. She continued to show weakness and was needing continued antibiotic therapy. Today, she was found to be stable enough to discharge from Acute Care and admitted to the Swing Bed program for ongoing physical therapy and antibiotic therapy with vancomycin for the underlying osteomyelitis. PAST MEDICAL HISTORY: 1. Chronic obstructive pulmonary disease. 2. Hyperlipidemia. 3. Hypertension. 4. Gastroesophageal reflux disease. 5. Type 2 diabetes mellitus. 6. 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 7. 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 8. Irritable bowel syndrome secondary to cholecystectomy. PAST SURGICAL HISTORY: 1. Appendectomy. 2. Cholecystectomy. 3. Hysterectomy. 4. Drainage of vulvar hematoma. HOME MEDICATIONS: Awaiting verification of updated list in electronic medical record. On admission, listed was: 1. Prednisone 10 mg b.i.d. 2. Warfarin 1 mg every other day. 3. Warfarin 0.5 mg every other day. 4. Verapamil 80 mg b.i.d. 5. Potassium chloride 20 mEq q.a.m. 6. Metoprolol 100 mg b.i.d. 7. Lisinopril 40 mg at bedtime. 8. Glimepiride 1 mg at breakfast. 9. Lasix 40 mg b.i.d. 10. Lomotil 2.5 mg q.i.d. as needed. 11. Flexeril 10 mg t.i.d. as needed. 12. Albuterol inhaler as needed. 13. Xanax 0.5 mg b.i.d. ALLERGIES: TAGAMET, CODEINE, HYDROCODONE, PENICILLIN, SULFA ANTIBIOTICS, TETANUS IMMUNE GLOBULIN. FAMILY HISTORY: Mother from unknown cause. Father at age 73 from myocardial infarction. SOCIAL HISTORY: The patient is retired, previously a nurse aid. She lives in [place], currently at [facility]. She is a current smoker of approximately 1 to 5 cigarettes per day. She denies any alcohol or illicit drug use. REVIEW OF SYSTEMS: CONSTITUTIONAL: Negative for any fevers, chills. HEENT: Negative for sore throats, earaches, nasal congestion. RESPIRATORY: As noted in Discharge Summary with recent history of healthcare acquired pneumonia, now without any ongoing shortness of breath, but continues with cough. CARDIOVASCULAR: Negative for chest pain, palpitations or syncopal episodes. GASTROINTESTINAL: Negative for nausea, vomiting, diarrhea, constipation. GENITOURINARY: Negative for dysuria, hematuria, polyuria. NEUROLOGIC: Negative for syncopal episodes. History of cerebrovascular accident with left sided residual hemiparesis. PHYSICAL EXAMINATION: VITAL SIGNS: On admission to [facility] Bed: Temperature 98.3. Pulse 177. Blood pressure 168/90. Respirations 18. Saturation 94% on room air. GENERAL: The patient is resting in bed comfortably with legs up. She is alert. RESPIRATORY: Lung sounds fairly clear, just diminished bilaterally towards the bases. No rhonchi or wheezing noted. CARDIOVASCULAR: Regular rate and rhythm without any appreciable murmurs, gallops, or rubs. ABDOMEN: Soft, nontender. Positive bowel sounds. EXTREMITIES: 2+ pitting edema to bilateral lower extremities which was more dependent and showed improvement once the patient was able to keep the legs elevated. Capillary refill was brisk bilaterally. No reported significant paresthesias. NEUROLOGIC: The patient is alert and oriented times three. LABORATORY: PT and INR pending at time of admission. RADIOLOGY: She had an MRI on Acute Care. Please see that report for full details. ASSESSMENT: 1. Healthcare acquired pneumonia showing response to initiation of antibiotic therapy with both vancomycin, cefepime and Levaquin. 2. History of recent diagnosis of osteomyelitis of left great toe, recently transferred from [facility] in [place] for ongoing vancomycin therapy for treatment as well as need for acute care treatment for pneumonia considered to be healthcare acquired with cefepime and Levaquin, now patient showing resolution of pneumonia with required ongoing treatment for osteomyelitis. 3. Acute chronic obstructive pulmonary disease exacerbation secondary to healthcare acquired pneumonia 4. Hypertension. 5. Type 2 diabetes mellitus on oral therapy. 6. Gastroesophageal reflux disease. 7. 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 8. History of previous cerebrovascular accident secondary to blood clots with some mild left-sided hemiparesis on chronic Coumadin therapy with INR showing to be subtherapeutic. 9. 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 PLAN: The patient was discharged from Acute Care and will be admitted to the Swing Bed program for ongoing therapy with antibiotics with vancomycin per pharmacy protocol for underlying osteomyelitis of the right great toe. Anticipate length of stay to be at least 7 to 10 days. At some point, we need to touch base with Dr. Worthington given the MRI reports and see where we are on the ongoing antibiotic therapy. Until then, she will continue antibiotic therapy. She has a PICC line in place. She will get physical therapy as needed. Until she can transition to outpatient management, we will continue to monitor and treat as needed. #[id number] [facility]
[2018-12-21] MEDS: ACETAMINOPHEN 500 MG TAB PO PRN (11:13)
[2018-12-21] MEDS: LISINOPRIL 10 MG TAB PO SCH (21:32)
[2018-12-21] MEDS: POTASSIUM CHLORIDE 20 MEQ TAB PO SCH (21:32)
[2018-12-22] MEDS: GLIMEPIRIDE 2 MG TAB PO SCH (06:50)
[2018-12-22] MEDS: INSULIN LISPRO 100 UNITS/ML PEN SUBCU SCH ×4 (07:56→20:56)
[2018-12-22] MEDS: ALPRAZolam 0.5 MG TAB PO SCH ×2 (08:11→20:57)
[2018-12-22] MEDS: METOPROLOL TARTRATE 50 MG TAB PO SCH ×2 (08:11→20:56)
[2018-12-22] MEDS: NICOTINE PATCH 21 MG TD SCH (08:11)
[2018-12-22] MEDS: SIMVASTATIN 20 MG TAB PO SCH (08:11)
[2018-12-22] MEDS: FUROSEMIDE 40 MG TAB PO SCH ×2 (08:12→14:01)
[2018-12-22] MEDS: CYCLOBENZAPRINE HCL 10 MG TAB PO SCH ×2 (08:12→20:55)
[2018-12-22] MEDS: REMOVE OLD PATCH TOP SCH (08:12)
[2018-12-22] MEDS: DOCUSATE SODIUM 100 MG CAP PO SCH (08:12)
[2018-12-22] MEDS: WARFARIN SODIUM 1 MG TAB PO SCH (08:12)
[2018-12-22] MEDS ORDERED: VANCOMYCIN HCL INJ 1,000 MG, VANCOMYCIN HCL INJ 500 MG in SODIUM CHLORIDE 0.9% 250ML 25... IVPB SCH (09:00)
[2018-12-22] MEDS ORDERED: VANCOMYCIN HCL INJ 500 MG VIAL ONE (09:12)
[2018-12-22] MEDS ORDERED: VANCOMYCIN HCL INJ 1,000 MG VIAL IVPB ONE (09:13)
[2018-12-22] MEDS ORDERED: SODIUM CHLORIDE 0.9% 250ML 250 ML ONE (09:13)
[2018-12-22] MEDS: ALBUTEROL SULFATE 2.5 MG/3 ML VIAL NEB PRN (20:26)
[2018-12-22] MEDS: POTASSIUM CHLORIDE 20 MEQ TAB PO SCH (20:56)
[2018-12-22] MEDS: LISINOPRIL 10 MG TAB PO SCH (20:57)
[2018-12-22] MEDS: ACETAMINOPHEN 500 MG TAB PO PRN (21:07)
[2018-12-23] MEDS: GLIMEPIRIDE 2 MG TAB PO SCH (06:52)
[2018-12-23] MEDS ORDERED: VANCOMYCIN HCL INJ 500 MG VIAL ONE (07:52)
[2018-12-23] MEDS ORDERED: SODIUM CHLORIDE 0.9% 100ML 100 ML IVPB ONE (07:55)
[2018-12-23] MEDS ORDERED: VANCOMYCIN HCL INJ 500 MG in SODIUM CHLORIDE 0.9% 100ML 100 ML IVPB SCH (09:00)
[2018-12-23] MEDS: INSULIN LISPRO 100 UNITS/ML PEN SUBCU SCH ×2 (09:14→11:55)
[2018-12-23] MEDS: ALPRAZolam 0.5 MG TAB PO SCH (09:38)
[2018-12-23] MEDS: NICOTINE PATCH 21 MG TD SCH (09:38)
[2018-12-23] MEDS: FUROSEMIDE 40 MG TAB PO SCH (09:39)
[2018-12-23] MEDS: METOPROLOL TARTRATE 50 MG TAB PO SCH (09:39)
[2018-12-23] MEDS: DOCUSATE SODIUM 100 MG CAP PO SCH (09:39)
[2018-12-23] MEDS: CYCLOBENZAPRINE HCL 10 MG TAB PO SCH (09:39)
[2018-12-23] MEDS: SIMVASTATIN 20 MG TAB PO SCH (09:39)
[2018-12-23] MEDS: REMOVE OLD PATCH TOP SCH (09:40)
[2018-12-23] MEDS: WARFARIN SODIUM 2 MG TAB PO SCH (09:49)
[2018-12-23 09:55] VITALS: BP 164/90; TEMP 97.6; O2SAT 95
--- NOTE | 2018-12-23 13:28 | DS ---
SUPERVISING PHYSICIAN: Uriel Ellis MD DISCHARGE DIAGNOSIS: 1. Osteomyelitis of the left great toe with transfer to [facility] for Swing Bed from [facility] in [place] for ongoing vancomycin therapy. 2. Healthcare acquired pneumonia showing response to initiation of antibiotic therapy with vancomycin, cefepime and Levaquin. 3. Acute chronic obstructive pulmonary disease exacerbation secondary to healthcare acquired pneumonia 4. Hypertension. 5. Type 2 diabetes mellitus on oral therapy. 6. Gastroesophageal reflux disease. 7. 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 8. History of previous cerebrovascular accident secondary to blood clots with some mild left-sided hemiparesis on chronic Coumadin therapy with INR showing to be subtherapeutic. 9. 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 HISTORY OF PRESENT ILLNESS: This is a 80-year-old female patient that was admitted to Swing Bed from [facility] for continuation of antibiotic therapy. She was found to be very unstable and in exacerbation of congestive heart failure. She was stabilized and then treated in the Acute Care setting for both exacerbation of congestive heart failure and healthcare acquired pneumonia with treatment of vancomycin, Levaquin and cefepime. She showed good response to treatment in regards to the pneumonia. She was then transferred from Acute Care setting to the Swing Bed program for ongoing physical therapy and antibiotic therapy with vancomycin for the underlying osteomyelitis. HOSPITAL COURSE: The patient's home medications were resumed. She has a PICC line and was continued on her vancomycin per pharmacy protocol. Given the MRI results, Dr. Worthington, infectious disease physician, said to continue her vancomycin therapy. Her vancomycin levels have been stabilized and it is recommended by the pharmacy to continue on daily vancomycin for 4 additional weeks as an outpatient. Her vital signs remain stable and she will be discharged home today in stable condition with daily vancomycin treatment as an outpatient here at [facility]. LABORATORY: Her blood sugars have run between 72 and 220. She has been on sliding scale insulin. Her baseline creatinine is about 1.5. Her creatinine during Swing Bed admission was 1.49. There were no radiology reports for this admission. DISCHARGE PLAN: The patient will be discharged home in stable condition. She is to resume her diabetic diet and to increase her activity as tolerated. She is to continue with her home medications. She is on Coumadin therapy and we will repeat her INR on Friday as she is to come to the hospital daily for 1 gram of vancomycin at 9 AM. Her troughs will be followed by pharmacy. INR is to be reported to me on Friday for changes in her Coumadin therapy. Otherwise, she will have a followup appointment with her primary care physician, Dr. Jose Ly, on 01/05/19 at 1:45 PM. She is to call Dr. Ly' office or come to the Emergency Room for any problems or complications. DISCHARGE MEDICATIONS: 1. Xanax. 2. Warfarin 2 mg every other day and 1 mg warfarin every other day. 3. Simvastatin. 4. Metoprolol. 5. Lisinopril. 6. Glimepiride. 7. Furosemide. 8. Cyclobenzaprine. 9. Albuterol sulfate. 10. Lomotil. 11. Proventil. 12. Vancomycin 1 gram daily and will be followed by pharmacy as an outpatient at [facility]'s infusion center. #[id number] [facility]
== END 2018-12-23 12:20 | disposition home health service (06) | DRG 638 ==
LOC: MS 14:24
PROVIDERS: ADMIT Nurse Practitioner Family; ATTEND Nurse Practitioner Acute Care
DX: E11.69 Type 2 diabetes mellitus with other specified complication (principal); M86.8X7 Other osteomyelitis, ankle and foot; L97.419 Non-pressure chronic ulcer of right heel and midfoot with unspecified severity; I69.354 Hemiplegia and hemiparesis following cerebral infarction affecting left non-dominant side; E11.621 Type 2 diabetes mellitus with foot ulcer; R79.1 Abnormal coagulation profile; J44.9 Chronic obstructive pulmonary disease, unspecified; E78.5 Hyperlipidemia, unspecified; I10 Essential (primary) hypertension; K21.9 Gastro-esophageal reflux disease without esophagitis; K58.9 Irritable bowel syndrome, unspecified; F17.210 Nicotine dependence, cigarettes, uncomplicated; Z66 Do not resuscitate; Z88.0 Allergy status to penicillin; Z88.2 Allergy status to sulfonamides; Z88.5 Allergy status to narcotic agent; Z88.7 Allergy status to serum and vaccine; Z88.8 Allergy status to other drugs, medicaments and biological substances; Z79.52 Long term (current) use of systemic steroids; Z79.84 Long term (current) use of oral hypoglycemic drugs; Z90.49 Acquired absence of other specified parts of digestive tract; Z86.718 Personal history of other venous thrombosis and embolism; Z79.01 Long term (current) use of anticoagulants; Z79.899 Other long term (current) drug therapy

== ENCOUNTER → 2019-02-27 | Outpatient (CLI) | payer MEDICARE | LOC: LAB.O 11:55 | PROVIDERS: ATTEND Nurse Practitioner Family | DX: L03.90 Cellulitis, unspecified (principal) ==

== ENCOUNTER 2019-05-24 05:04 | Day surgery (SDC) | payer MEDICARE ==
[2019-05-24] MEDS ORDERED: TROP 1%/CYCLOPEN 1%/PHENYL 2% DROPS ONE (05:55)
[2019-05-24] MEDS ORDERED: PROPARACAINE 0.5% OPHTH SOL 15 ML BTTL ONE (05:55)
[2019-05-24] MEDS ORDERED: MIDAZOLAM INJ 2 MG/2 ML VIAL ONE ×2 (07:12→08:19)
[2019-05-24] MEDS ORDERED: PROPARACAINE 0.5% OPHTH SOL 15 ML BTTL LEFT_EYE ONE (08:11)
[2019-05-24] MEDS ORDERED: LIDOCAINE 1% MPF 2 ML VIAL INJ ONE (08:22)
[2019-05-24] MEDS ORDERED: MOXIFLOXACIN HCL (OPHTH) 1 DROP DROPS LEFT_EYE ONE ×2 (08:22→08:32)
[2019-05-24] MEDS ORDERED: TOBRAMYCIN SULF 0.3 % OPHT SOL 1 DROP LEFT_EYE ONE ×2 (08:23→08:33)
[2019-05-24] MEDS ORDERED: BRIMONIDINE 0.2% OPHTH DROPS LEFT_EYE ONE ×2 (08:23→08:33)
[2019-05-24] MEDS ORDERED: DEXAMETHASONE 0.1% OPHTH SOL 1 DROP LEFT_EYE ONE ×2 (08:23→08:33)
== END 2019-05-24 09:08 | disposition home or self-care (01) ==
LOC: AMB 05:04
PROVIDERS: ATTEND Ophthalmology
DX: H25.12 Age-related nuclear cataract, left eye (principal); E11.36 Type 2 diabetes mellitus with diabetic cataract; Z88.6 Allergy status to analgesic agent; Z88.0 Allergy status to penicillin; Z88.7 Allergy status to serum and vaccine; Z88.1 Allergy status to other antibiotic agents; Z88.2 Allergy status to sulfonamides; Z88.5 Allergy status to narcotic agent; Z88.8 Allergy status to other drugs, medicaments and biological substances; Z87.891 Personal history of nicotine dependence; Z79.01 Long term (current) use of anticoagulants; Z79.899 Other long term (current) drug therapy
CPT/HCPCS: 00142; 36416; 66984; 82948; J2250

== ENCOUNTER 2019-06-07 05:32 | Day surgery (SDC) | payer MEDICARE ==
[2019-06-07] MEDS ORDERED: TROP 1%/CYCLOPEN 1%/PHENYL 2% DROPS ONE (05:51)
[2019-06-07] MEDS ORDERED: PROPARACAINE 0.5% OPHTH SOL 15 ML BTTL ONE (05:51)
[2019-06-07] MEDS ORDERED: MOXIFLOXACIN HCL (OPHTH) 1 DROP DROPS ONE (05:51)
[2019-06-07] MEDS ORDERED: MIDAZOLAM INJ 2 MG/2 ML VIAL ONE ×2 (07:09→07:34)
[2019-06-07] MEDS ORDERED: PROPARACAINE 0.5% OPHTH SOL 15 ML BTTL RIGHT_EYE ONE (07:25)
[2019-06-07] MEDS ORDERED: DEXAMETHASONE 0.1% OPHTH SOL 1 DROP RIGHT_EYE ONE ×2 (07:35→07:53)
[2019-06-07] MEDS ORDERED: MOXIFLOXACIN HCL (OPHTH) 1 DROP DROPS RIGHT_EYE ONE ×2 (07:35→07:52)
[2019-06-07] MEDS ORDERED: LIDOCAINE 1% MPF 2 ML VIAL INJ ONE ×2 (07:35→07:43)
[2019-06-07] MEDS ORDERED: TOBRAMYCIN SULF 0.3 % OPHT SOL 1 DROP RIGHT_EYE ONE ×2 (07:36→07:53)
[2019-06-07] MEDS ORDERED: BRIMONIDINE 0.2% OPHTH DROPS RIGHT_EYE ONE ×2 (07:36→07:53)
== END 2019-06-07 08:35 | disposition home or self-care (01) ==
LOC: AMB 05:32
PROVIDERS: ATTEND Ophthalmology
DX: E11.36 Type 2 diabetes mellitus with diabetic cataract (principal); H25.11 Age-related nuclear cataract, right eye; Z88.0 Allergy status to penicillin; Z88.2 Allergy status to sulfonamides; Z88.5 Allergy status to narcotic agent; Z88.8 Allergy status to other drugs, medicaments and biological substances; Z79.01 Long term (current) use of anticoagulants; Z79.899 Other long term (current) drug therapy
CPT/HCPCS: 00142; 66984; 82948; J2250

== ENCOUNTER 2019-07-18 13:49 | Inpatient (IN) | payer MEDICARE ==
[2019-07-18] MEDS ORDERED: ONDANSETRON INJ 4 MG/2 ML VIAL IV ONE (14:36)
--- NOTE | 2019-07-18 14:36 | ED.PDOC ---
History of Present Illness - General Chief Complaint: Abdominal Pain Stated Complaint: Abdominal pain x 2 days Time Seen by Provider: 07/18/19 14:22 - History of Present Illness Initial Comments: c/o central to R sided abdominal pain ,8/10 sharp , non radiating , since 2 days , getting worse :associated with nausea nad vomiting x1 . No fever or chills Improving Factors: nothing Worsening Factors: nothing Associated Symptoms: nausea/vomiting Review of Systems - Review of Systems Constitutional: States: no symptoms reported EENTM: States: no symptoms reported Respiratory: States: no symptoms reported Cardiology: States: no symptoms reported Gastrointestinal/Abdominal: States: see HPI Genitourinary: States: no symptoms reported Musculoskeletal: States: no symptoms reported Skin: States: no symptoms reported Neurological: States: no symptoms reported Endocrine: States: no symptoms reported Hematologic/Lymphatic: States: no symptoms reported All other Systems: Reviewed and Negative Past Medical History (General) - Patient Medical History Hx Seizures: No Hx Stroke: Yes Hx Asthma: No Hx of COPD: Yes Hx Cardiac Disorders: Yes - Hx DVT Hx Congestive Heart Failure: Yes Hx Pacemaker: No Hx Hypertension: Yes Hx Diabetes: Yes Hx MRSA: No - Vaccination History Hx Influenza Vaccination: Yes - 2018 Hx Pneumococcal Vaccination: Yes - Social History Hx Tobacco Use: Yes Hx Alcohol Use: No Hx Substance Use: No Hx Physical Abuse: No Hx Emotional Abuse: No Family Medical History - Family History Mother Family History: Unknown Living Status: Hx Family Congestive Heart Failure: Yes Hx Family Hypertension: Yes Hx Family Diabetes: Yes Hx Family Cancer: Yes - breast -mom;lung-dad Father Living Status: Hx Cardiac Disease: Yes Hx Family Cancer: Yes Physical Exam - Physical Exam General Appearance: Alert, Comfortable Neck: non-tender, full range of motion, supple, normal inspection Respiratory: chest non-tender, lungs clear, normal breath sounds, no respiratory distress, no accessory muscle use Cardiovascular/Chest: regular rate, rhythm, no edema, no gallop, no JVD Gastrointestinal/Abdominal: tenderness - central and R flank Back Exam: no CVA tenderness, no vertebral tenderness Extremity: non-tender, normal inspection Neurologic: alert, normal mood/affect, oriented x 3 Skin Exam: normal color Lymphatic: no adenopathy Progress - Progress Progress: 07/18/19 18:00 caase d/w hospitalist Vahid and he agrees to admit the pt - EKG/XRAY/CT EKG: Sinus, no ST T wave changes Departure - Departure Clinical Impression: Colitis, Abdominal pain Disposition: Admit Patient Departure Forms: ED Discharge - Pt. Copy, Patient Portal Self Enrollment Instructions: DI for Abdominal Pain-Adult Referrals: Jose Ly MD [Primary Care Provider] - 1-2 Weeks Home Medications: Ambulatory Orders ALPRAZolam [Xanax] 0.5 mg PO BID #0 01/10/15 Cyclobenzaprine HCl [Flexeril] 10 mg PO BID 01/10/15 Furosemide 40 mg PO .08:00, 13:00 01/10/15 Glimepiride 1 mg PO ACBK 01/10/15 Lisinopril 40 mg PO BEDTIME 01/10/15 Metoprolol Tartrate 100 mg PO BID 01/10/15 Simvastatin 40 mg PO DAILY 01/10/15 Warfarin Sodium 2 mg PO REMY-OTH-DAY 01/10/15 Albuterol Sulfate [Proair Hfa] 2 puff INH Q6H PRN #1 01/11/15 Diphenoxylate/Atropine [Lomotil Tab] 2.5 mg PO QID PRN 11/27/16 Warfarin Sodium 1 mg PO REMY-OTH-DAY 11/27/16 Albuterol Sulfate Nebs [Proventil Nebs] 2.5 mg INH QID PRN 02/13/17 Folic Udaj-Ctsnsyrjup-Pgejbbas [Folbic 2.5-25-2 mg] 1 tab PO DAILY 05/24/19 Potassium Chloride [Klor-Con] 20 meq PO DAILY 05/24/19 Verapamil HCl 80 mg PO BID 05/24/19
[2019-07-18] MEDS ORDERED: DICYCLOMINE HCL INJ 20 MG/2 ML AMP IM ONE (14:38)
[2019-07-18] MEDS: SODIUM CHLORIDE 0.9% (FLUSH) 10 ML SYG IV PRN ×2 (15:19→18:12)
--- NOTE | 2019-07-18 17:41 | CT ---
EXAM DESCRIPTION: CT Abdomen/Pelvis w/o Contrast CLINICAL HISTORY: 74 years Female abdominal pain COMPARISON: Contrast enhanced study dated August 03, 2015. TECHNIQUE: Noncontrast axial scans of the abdomen and pelvis were obtained. The lack of any contrast administration limits evaluation of certain areas. This exam was performed according to our departmental dose-optimization program, which includes automated exposure control, adjustment of the mA and/or kV according to patient size and/or use of iterative reconstruction technique. FINDINGS: There is slight linear stranding and posterior pleural thickening in the lung bases and dependent subsegmental atelectasis on the right, increased compared to the previous study. Surgical absence of the gallbladder is again noted. The liver appears upper normal in size. The spleen contains a tiny calcification and possible scar and is not enlarged. There is slight fullness of the left adrenal gland compared to the right. Note is again made of a dominant cortical cyst in the left kidney measuring about 4 x 5 cm, along with other smaller cystic lesions in the left kidney and a probable parapelvic cyst versus slightly prominent renal pelvis on the right. There is no evidence of significant obstructive uropathy or any definite urinary tract calculus on either side. No ascites is identified in the upper abdomen. The pancreas is not enlarged. There is borderline prominence of the common bile duct, which measures up to about 1 cm in diameter, not significantly changed since the previous study and presumably postoperative in nature. Aorto iliac and other vascular calcifications are identified. There is fusiform aneurysmal dilatation of the lower abdominal aorta, with maximum cross-sectional dimensions of about 3.8 x 4.2 cm. This is slightly but less than 1 cm larger than on the previous study. There is also slight dilatation of the distal right common iliac artery, measuring up to about 1.8 cm, not significantly changed in the interval. There appears to be a small amount of free fluid in the pelvis, increased compared to the previous study, of uncertain etiology. Multiple diverticula are noted in the lower descending and sigmoid colon, as previously. There is no evidence of saray diverticulitis, although there does appear to be some wall thickening of and slight edematous change about the descending colon. The latter was not present on the previous study. There is no evidence of bowel obstruction or pneumoperitoneum. A few air-fluid levels are seen in colon and small bowel loops, nonspecific. The appendix is difficult to identify, if still present. The bladder is grossly unremarkable as visualized, with adjacent fluid-filled loops of small bowel noted. The uterus is not identified and is presumably surgically absent. There are scattered degenerative changes and slight scoliosis in the spine. Degenerative change is greatest at L5-S1, where there is vacuum disc phenomenon, as previously. Degenerative changes in the left hip have increased. IMPRESSION: 1. Slight interval increase in size of an abdominal aortic aneurysm. 12 month follow-up is suggested, along with vascular consultation. 2. Slight free fluid in the pelvis. 3. Diverticulosis in the distal colon, without evidence of diverticulitis. 4. Possible colitis in the right colon. 5. Other minor and nonspecific findings and chronic and postoperative changes as described above. Electronically signed by: Leandro Quinteros MD 07/18/2019 5:40 PM [facility]
[2019-07-18] MEDS ORDERED: SODIUM CHLORIDE 0.9% 1000ML 1,000 ML IVS ONE (17:56)
[2019-07-18] MEDS ORDERED: levoFLOXacin 500MG IV 100 ML IVPB ONE (17:59)
[2019-07-18] MEDS: levoFLOXacin 500MG IV 500 MG in PREMIX BAG 1 BAG IVPB SCH (18:10)
--- NOTE | 2019-07-18 18:36 | HP ---
SUPERVISING PHYSICIAN: Uriel Ellis MD CHIEF COMPLAINT: Right lower abdominal pain. HISTORY OF PRESENT ILLNESS: Ms. Quesada is a 74-year-old female patient who presented to the Emergency Department today accompanied by her daughter with right sided abdominal pain. She endorses that it was rated 8/10, noted to be sharp, nonradiating and had been occurring for the last 2 to 3 days and getting worse. It had been associated with some nausea and vomiting, but denied any fevers or chills. She does have some chronic diarrhea and has been on antibiotics in the past year multiple times for pneumonia, but not in the recent last [address] of her abdomen without contrast showed possible colitis in the right colon. CBC did show a leukocytosis of 19,000 with a left shift. Chemistries showed a mild hyponatremia at 132, but her creatinine was up to 2.08 with baseline creatinine normally around 1 to 1.2. Blood sugar was 122. Bilirubin slightly elevated at 1.4. Lipase normal at 17. Lactic acid normal at 1.7. Urinalysis was not collected prior to admission. Her vital signs showed she was afebrile on admission with temperature 97.3, pulse 96, blood pressure a little hypotensive at 87/69 with respirations 18, saturation 95% to 96% on nasal cannula at 2 liters. Given her advanced age, findings on CT concerning for right sided colitis, she was started on treatment for possible infectious colitis with coverage with Levaquin and is now going to be admitted for further treatment and evaluation of acute right sided colitis. She was admitted in stable condition. PAST MEDICAL HISTORY: 1. Chronic obstructive pulmonary disease with several episodes of pneumonia in the past year. 2. Hyperlipidemia. 3. Hypertension. 4. Gastroesophageal reflux disease. 5. Type 2 diabetes mellitus. 6. 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 7. 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 8. Irritable bowel syndrome secondary to cholecystectomy. PAST SURGICAL HISTORY: 1. Appendectomy. 2. Cholecystectomy. 3. Hysterectomy. 4. Drainage of a vulvar hematoma. HOME MEDICATIONS: Awaiting verification, please see updated list in electronic medical record. On admission, listed as: 1. Warfarin 2 mg daily. 2. Verapamil 80 mg b.i.d. 3. Simvastatin 40 mg daily. 4. Potassium chloride 20 mEq daily. 5. Metoprolol 100 mg b.i.d. 6. Lisinopril 40 mg at bedtime. 7. Hydrochlorothiazide 25 mg daily. 8. Lasix 40 mg daily. 9. Folic acid supplement 1 tablet daily. 10. Lomotil tablet 2.5 mg b.i.d. as needed. 11. Flexeril 10 mg b.i.d. 12. Plavix 75 mg daily. 13. Proventil nebulizers 2.5 mg q.i.d. as needed. 14. Albuterol inhaler 2 puffs inhaled as needed q.6h. 15. Xanax 0.5 mg b.i.d. ALLERGIES: MULTIPLE ALLERGIES LISTED TO INCLUDE TAGAMET, CODEINE, HYDROCODONE, PENICILLIN, SULFA ANTIBIOTICS, ASPIRIN, CARBIDOPA WITH LEVODOPA, VIBERZI, GABAPENTIN, METFORMIN, TETANUS IMMUNOGLOBULIN. FAMILY HISTORY: Mother decreased from causes unknown. Father at age 73 from myocardial infarction. SOCIAL HISTORY: The patient is retired and previously worked as an nurse aid. She lives in [place] and currently resides at [facility]. She is currently not a smoker, but has been in the past. She denies any alcohol or illicit drug use. REVIEW OF SYSTEMS: CONSTITUTIONAL: Negative for any fevers, chills. HEENT: Negative for sore throats, earaches, nasal congestion, headaches. RESPIRATORY: Negative for shortness of breath, coughing, wheezing. CARDIOVASCULAR: Negative for chest pain, palpitations or syncopal episodes. GASTROINTESTINAL: As noted in history of present illness, positive for right sided abdominal pain with some associated vomiting, chronic diarrhea and nausea. No reported constipation. No other bowel habit changes. GENITOURINARY: Negative for dysuria, hematuria, polyuria. NEUROLOGIC: Denies syncopal episodes. She does have history of previous CVA with left sided residual hemiparesis. INTEGUMENTARY: Denies any changes in skin with lesions, rashes or moles. HEMATOLOGIC: Denies any unexplained bleeding, bruising. PHYSICAL EXAMINATION: VITAL SIGNS: On admission, temperature 97.3. Pulse 96. Blood pressure 87/69. Respirations 18. Saturation 95% on 2 liters nasal cannula. Admission weight 79 kg. GENERAL: The patient does not appear to be in any acute distress. She is well- nourished, well-hydrated. She is alert. HEENT: Tympanic membranes clear bilaterally. Oropharynx is pink, moist without any lesions. NECK: Supple, nontender with full range of motion. RESPIRATORY: Lungs clear to auscultation bilaterally without any rhonchi, wheezes or rales. CARDIOVASCULAR: Regular rate and rhythm without any appreciable murmurs, gallops, or rubs. ABDOMEN: Tenderness on the right flank to right lower quadrant. No rebound tenderness. No peritoneal signs. Positive bowel sounds. BACK: No notable CVA or vertebral tenderness. EXTREMITIES: There is no cyanosis, clubbing or edema. Left upper extremity does show contractures and residual hemiparesis from previous CVA. NEUROLOGIC: The patient is alert and oriented times three. Facial features are symmetrical. Extraocular movements are within normal limits. There is no nystagmus noted. SKIN: Warm, pink and dry. EKG: Sinus rhythm with no ST or T wave changes. RADIOLOGY: Abdominopelvic CT per radiologic interpretation showed slight increase in the size of the aorta and abdominal aortic aneurysm with 12 month followup recommended with slight free fluid in the pelvis. There was note of diverticulosis in the distal colon without any evidence of diverticulitis. There was mention of possible colitis in the right colon. Please see that final report for details. ASSESSMENT: 1. Right sided abdominal pain, etiology uncertain, but probably an infectious colitis, gastroenteritis-like symptoms with the patient having irritable bowel syndrome and issues with chronic diarrhea. 2. Possible sepsis with noted leukocytosis and hypotension on admission with an elevated creatinine from baseline noted per record review to be about 1.2, currently at 2.0, probably some prerenal azotemia from some mild dehydration. 3. Electrolyte imbalance to include hyponatremia. 4. Leukocytosis with a left shift secondary to #1. 5. Chronic coagulopathy secondary to Coumadin therapy. 6. Diabetes mellitus, type 2, currently on diet therapy. 7. History of gastroesophageal reflux disease. 8. History of previous cerebrovascular accident in 2006 and 2008 with residual left hemiparesis. 9. 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 10. Irritable bowel syndrome secondary to cholecystectomy. PLAN: Ms. Quesada is going to be admitted for initiation of antibiotic therapy for concerns for infectious colitis. We will give her some Levaquin and Flagyl as directed. She will be on DVT prophylaxis per protocol with warfarin. We will put her on a sliding scale per insulin protocol. I will go ahead and get a chest x-ray given her white count to further rule out any underlying pneumonia. We will have her on a clear liquid diet for some bowel rest. If she starts having nausea, we will make her NPO at that time. I would anticipate her length of stay to be at least two to three days and probably discharge by Friday. Until the patient can transition to outpatient management, we will continue to monitor and treat as needed. #[id number] [facility]
[2019-07-18] MEDS ORDERED: SODIUM CHLORIDE 0.9% (FLUSH) 10 ML SYG IV PRN (19:21)
[2019-07-18] MEDS ORDERED: ALUM & MAG HYDROX-SIMETHICONE 30 ML UD PO PRN (19:21)
[2019-07-18] MEDS ORDERED: MAGNESIUM HYDROXIDE 30 ML UD PO PRN (19:21)
[2019-07-18] MEDS ORDERED: KCL 20MEQ/D5NS 1,000 ML IVS PRN (19:28)
[2019-07-18] MEDS ORDERED: KCL 20MEQ/D5W 0 ML IVS ONE (20:20)
[2019-07-18] MEDS ORDERED: metroNIDAZOLE IV PREMIX 500MG 100 ML IVPB ONE ×2 (20:20→22:25)
[2019-07-18] MEDS: metroNIDAZOLE IV PREMIX 500MG 500 MG in PREMIX BAG 1 BAG IVPB SCH (20:25)
[2019-07-18] MEDS: IV SET AND CAP CHANGE INJ INJ SCH (20:30)
[2019-07-18] MEDS ORDERED: NON-FORMULARY MEDICATION 1 EA MIS (Lisinopril [Lisinopril] 40 MG) PO SCH (21:00)
[2019-07-18] MEDS ORDERED: DIPHENOXYLATE HCL/ATROPINE 2.5 MG TAB PO PRN (21:34)
[2019-07-18] MEDS ORDERED: GLUCAGON INJ 1 MG VIAL SUBCU PRN (21:52)
[2019-07-18] MEDS ORDERED: DEXTROSE 50% 25 GM/50 ML SYG IV PRN (21:52)
[2019-07-18] MEDS: NON-FORMULARY MEDICATION 1 EA MIS (Metoprolol Tartrate [Metoprolol Tartrate] 100 MG) PO SCH (22:18)
[2019-07-18] MEDS: VERAPAMIL HCL 80 MG PO SCH (22:19)
[2019-07-18] MEDS ORDERED: CYCLOBENZAPRINE HCL 5 MG TAB ONE (22:24)
[2019-07-18] MEDS: ALPRAZolam 0.5 MG TAB PO SCH (22:28)
[2019-07-18] MEDS: ACETAMINOPHEN 325 MG TAB PO PRN (22:28)
[2019-07-18] MEDS: CYCLOBENZAPRINE HCL 10 MG TAB PO SCH (22:28)
[2019-07-19] MEDS: metroNIDAZOLE IV PREMIX 500MG 500 MG in PREMIX BAG 1 BAG IVPB SCH ×3 (03:45→20:30)
[2019-07-19] MEDS: ACETAMINOPHEN 325 MG TAB PO PRN ×2 (06:24→20:56)
[2019-07-19] MEDS ORDERED: levoFLOXacin 500MG IV 100 ML IVPB ONE (07:39)
[2019-07-19] MEDS: INSULIN LISPRO 100 UNITS/ML PEN SUBCU SCH ×4 (08:18→20:59)
[2019-07-19] MEDS: FUROSEMIDE 40 MG TAB PO SCH (08:20)
[2019-07-19] MEDS: ALPRAZolam 0.5 MG TAB PO SCH ×2 (08:21→20:58)
[2019-07-19] MEDS: hydroCHLOROthiazide 25 MG TAB PO SCH ×2 (08:21→08:24)
[2019-07-19] MEDS: CLOPIDOGREL 75 MG TAB PO SCH (08:21)
[2019-07-19] MEDS: CYCLOBENZAPRINE HCL 10 MG TAB PO SCH ×2 (08:21→20:57)
[2019-07-19] MEDS: levoFLOXacin 500MG IV 500 MG in PREMIX BAG 1 BAG IVPB SCH ×2 (08:28→09:17)
[2019-07-19] MEDS: ALBUTEROL SULFATE 2.5 MG/3 ML VIAL NEB PRN ×2 (08:46→20:46)
[2019-07-19] MEDS ORDERED: WARFARIN SODIUM 2 MG TAB PO SCH (09:00)
[2019-07-19] MEDS ORDERED: metroNIDAZOLE IV PREMIX 500MG 100 ML IVPB ONE ×3 (11:23→20:16)
[2019-07-19] MEDS: VERAPAMIL HCL 40 MG TAB PO SCH ×2 (11:32→20:58)
[2019-07-19] MEDS: METOPROLOL TARTRATE 50 MG TAB PO SCH ×2 (11:33→20:57)
[2019-07-19] MEDS: POTASSIUM CHLORIDE 20 MEQ TAB PO SCH (11:34)
[2019-07-19] MEDS: WARFARIN SODIUM 2 MG TAB PO SCH (11:34)
[2019-07-19] MEDS: NON-FORMULARY MEDICATION 1 EA MIS (Metoprolol Tartrate [Metoprolol Tartrate] 100 MG) PO SCH (11:37)
[2019-07-19] MEDS: VERAPAMIL HCL 80 MG PO SCH (11:37)
[2019-07-19] MEDS ORDERED: ACETAMINOPHEN IV 1000MG 1,000 MG in PREMIX BOTTLE 1 BOTTLE IVPB ONE (11:49)
[2019-07-19] MEDS ORDERED: INSULIN, REG.(HUMAN) 100 U/ML VIAL ONE (11:51)
[2019-07-19] MEDS ORDERED: ACETAMINOPHEN IV 1000MG 100 ML ONE (11:55)
[2019-07-19] MEDS ORDERED: MAGNESIUM HYDROXIDE 30 ML UD PO ONE (13:49)
--- NOTE | 2019-07-19 14:58 | RAD ---
EXAM DESCRIPTION: Chest,1 View CLINICAL HISTORY: 74 years Female, fever COMPARISON: December 12, 2018 TECHNIQUE: AP portable chest. FINDINGS: Single view of the chest shows moderate cardiomegaly and tortuous aorta. Previously noted haziness at the lung bases has improved but there is still abnormal hazy density at the mildly elevated right lung base and indistinct loss of normal tissue planes at the lateral left lung base. Residual atelectasis/edema/infiltrate at the lung bases suspected. Mild vascular congestion also suspected in the central perihilar regions on the left and to a lesser extent on the right. Lung volumes are relatively small. The mid and upper lung field particularly on the right is relatively clear. IMPRESSION: Abnormal chest with cardiomegaly and at least mild central vascular congestion and hazy parenchymal/pleural densities at both lung bases left worse than right and mild edematous or congestive changes in the upper lung field on the left. The overall appearance is slightly less prominent than seen on November examination but remains abnormal. Electronically signed by: Prakash Buchanan MD 07/19/2019 2:57 PM [facility]
--- NOTE | 2019-07-19 15:14 | CONS ---
DATE OF CONSULTATION: 07/19/19 HISTORY OF PRESENT ILLNESS: The patient is a 74-year-old female who was admitted through the Emergency Room yesterday complaining of mainly right sided abdominal pain. She was noted to have a white count of over 19,000, but did deny fever or chills. She did have some chronic diarrhea and has had some nausea and vomiting. She has had multiple recent admission for pneumonia. She has been admitted and I have been asked to consult and make recommendations for treatment and further workup. PAST MEDICAL HISTORY: 1. Chronic obstructive pulmonary disease. 2. Hyperlipidemia. 3. Hypertension. 4. Gastroesophageal reflux disease. 5. Diabetes mellitus, type 2. 6. Status post cerebrovascular accident in 2006 and 2008 with left sided hemiparesis. 7. History of deep venous thrombosis, on Coumadin therapy. 8. History of irritable bowel syndrome secondary to cholecystectomy. PAST SURGICAL HISTORY: 1. Appendectomy. 2. Cholecystectomy. 3. Hysterectomy. 4. Drainage of vulvar hematoma. 5. Childbirth times 2, vaginally. MEDICATIONS: 1. Warfarin. 2. Verapamil. 3. Simvastatin. 4. Potassium. 5. Metoprolol. 6. Lisinopril. 7. Hydrochlorothiazide. 8. Lasix. 9. Folic acid. 10. Lomotil p.r.n. 11. Flexeril. 12. Plavix. 13. Proventil. 14. Albuterol. 15. Xanax. ALLERGIES: TAGAMET, CODEINE, HYDROCODONE, PENICILLIN, SULFA, ASPIRIN, CARBIDOPA WITH LEVODOPA, VIBERZI, GABAPENTIN, METFORMIN, TETANUS TOXOID AND IMMUNOGLOBULIN. FAMILY HISTORY: Positive for coronary artery disease. SOCIAL HISTORY: The patient previously worked as a nurses aid. She is retired and lives in [facility]. She does not currently drink, but did for many years. She denies alcohol or drug use. REVIEW OF SYSTEMS: The patient denies blood per rectum or hematemesis. She denies melanotic stools. She states it has been many years since she has had a colonoscopy. She denies congestion or sore throat. She denies headaches, denies chest pain, shortness of breath. It is noted she had right sided abdominal pain with nausea and vomiting. She denies problems with constipation. There is no dysuria or hematuria. PHYSICAL EXAMINATION: GENERAL: The patient is awake, alert, cooperative, in mild distress. VITAL SIGNS: The patient is currently afebrile, normotensive. HEENT: Sclerae nonicteric. Mucous membranes moist at this point. NECK: Without adenopathy. CHEST: Equal breath sounds bilaterally without wheezing. HEART: Regular rate and rhythm. ABDOMEN: Firm, but not rigid. There is tenderness in the right side. There is no rebound tenderness, no guarding. Bowel sounds care active. PELVIC/RECTAL: Deferred. EXTREMITIES: She has left upper extremity contractures, otherwise no cyanosis, clubbing or edema. LABORATORY: Her EKG showed sinus rhythm with no ST or T wave changes. CT revealed abdominal aortic aneurysm, diverticulosis, question of colitis of the colon. ASSESSMENT: 1. Mild dehydration, resolved. 2. Leukocytosis with a left shift. 3. Hyponatremia. 4. Diabetes. 5. Coagulopathy secondary to Coumadin. 6. Status post cerebrovascular accident. 7. Status post deep venous thrombosis. 8. Irritable bowel syndrome. PLAN: She has been made NPO and started on IV antibiotics. Her white count has dropped to 14,000. Her creatinine has dropped due to hydration. I would continue this. She can start on a clear liquid diet as this should not involve the colon. She is likely actually to have ischemic colitis that was related to her dehydration and at this time, I recommend to continue the IV fluids, the antibiotics and we will also proceed with some gentle catharsis from above for her obstipation. We will do this quite gently with MiraLAX and Milk of Magnesia low dose. #[id number] [facility]
[2019-07-19] MEDS: POLYETHYLENE GLYCOL 3350 17 GM PCKT PO SCH (15:20)
--- NOTE | 2019-07-19 19:27 | PN ---
DATE: 07/19/19 SUPERVISING PHYSICIAN: Jose Ly M.D. SUBJECTIVE: The patient still is continuing to have pain on her right lower quadrant. She has had no nausea. She remains afebrile. She has had no chest pains. OBJECTIVE: VITAL SIGNS: Temperature 97.7, pulse 95, blood pressure 94/65, respirations 18, satting 95% on 2 liters nasal cannula. Weight is 79.6 kg. GENERAL: The patient is resting comfortably. She is still complaining of right lower quadrant pain. Appears to be in no acute distress. CHEST: Lung sounds were clear throughout with no notable rhonchi, wheezing or rales. HEART: Regular rate and rhythm. ABDOMEN: Soft with continued right lower quadrant pain, tender on palpation. EXTREMITIES: Without any edema. NEUROLOGIC: She is alert and oriented times three. LABORATORY: White count is down to 14,000, [id number], hematocrit 33.2, platelet count 217,000. Differential shows a resolving left shift. Coagulation studies show an INR of 2.3. Chemistries now show a normal sodium of 135, BUN 37, creatinine is down to 1.7. Blood sugars range between 124 and 152. Calcium 8.5. MICROBIOLOGY: Urine culture is pending. Stool culture is pending. Stool leukocytes show positive. Blood cultures are negative. C-Diff for A and B both toxin and antigen were negative. RADIOLOGY: Chest x-ray was pending. ASSESSMENT: 1. Right sided abdominal pain, etiology uncertain, but probably an infectious colitis, gastroenteritis-like symptoms with the patient having irritable bowel syndrome and issues with chronic diarrhea. 2. Possible sepsis with noted leukocytosis and hypotension on admission with an elevated creatinine from baseline noted per record review to be about 1.2, currently at 2.0, probably some prerenal azotemia from some mild dehydration. 3. Electrolyte imbalance to include hyponatremia. 4. Leukocytosis with a left shift secondary to #1. 5. Chronic coagulopathy secondary to Coumadin therapy. 6. Diabetes mellitus, type 2, currently on diet therapy. 7. History of gastroesophageal reflux disease. 8. History of previous cerebrovascular accident in 2006 and 2008 with residual left hemiparesis. 9. 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 10. Irritable bowel syndrome secondary to cholecystectomy. PLAN: Will continue with antibiotics with Levaquin and Flagyl. She remains on a clear liquid diet. I have consulted Dr. Andrea to help with the lower quadrant pain. I have restarted her medications. She is on deep venous thrombosis prophylaxis per protocol. She is on insulin sliding scale per protocol. Still waiting on a chest x-ray to further rule out underlying pneumonia. I anticipate another at least 24 to 48 hours hospitalization until we can transition her to outpatient management. Will continue to monitor and treat as needed. [facility][id number] [facility]
[2019-07-19] MEDS: ONDANSETRON INJ 4 MG/2 ML VIAL IV PRN (19:34)
[2019-07-19] MEDS: SIMVASTATIN 20 MG TAB PO SCH (20:57)
[2019-07-19] MEDS: LISINOPRIL 10 MG TAB PO SCH (20:57)
[2019-07-20] MEDS: ACETAMINOPHEN 325 MG TAB PO PRN ×2 (03:31→19:34)
[2019-07-20] MEDS: metroNIDAZOLE IV PREMIX 500MG 500 MG in PREMIX BAG 1 BAG IVPB SCH ×3 (04:16→19:33)
[2019-07-20] MEDS: INSULIN LISPRO 100 UNITS/ML PEN SUBCU SCH ×4 (07:17→21:09)
[2019-07-20] MEDS ORDERED: levoFLOXacin 500MG IV 100 ML IVPB ONE (07:35)
[2019-07-20] MEDS: VERAPAMIL HCL 40 MG TAB PO SCH ×2 (08:07→21:08)
[2019-07-20] MEDS: CLOPIDOGREL 75 MG TAB PO SCH (08:08)
[2019-07-20] MEDS: FUROSEMIDE 40 MG TAB PO SCH (08:08)
[2019-07-20] MEDS: POTASSIUM CHLORIDE 20 MEQ TAB PO SCH (08:08)
[2019-07-20] MEDS: POLYETHYLENE GLYCOL 3350 17 GM PCKT PO SCH (08:08)
[2019-07-20] MEDS: ALPRAZolam 0.5 MG TAB PO SCH ×2 (08:08→21:08)
[2019-07-20] MEDS: hydroCHLOROthiazide 25 MG TAB PO SCH (08:08)
[2019-07-20] MEDS: METOPROLOL TARTRATE 50 MG TAB PO SCH ×2 (08:08→21:08)
[2019-07-20] MEDS: levoFLOXacin 500MG IV 500 MG in PREMIX BAG 1 BAG IVPB SCH (08:08)
[2019-07-20] MEDS: CYCLOBENZAPRINE HCL 10 MG TAB PO SCH ×2 (08:08→21:09)
[2019-07-20] MEDS ORDERED: DEXTROSE 10% 500ML IVPB PRN (09:00)
--- NOTE | 2019-07-20 09:01 | RAD ---
EXAM DESCRIPTION: Abdomen Flat Upright CLINICAL HISTORY: 74 years Female, fu colitis constipation COMPARISON: None. FINDINGS: Upright and supine views of the abdomen were obtained. No free subdiaphragmatic gas or intra-abdominal air-fluid level. Moderate amount of colonic stool and gas, no dilated small bowel loops. Cholecystectomy clips. No suspicious intra-abdominal calcification. Degenerative changes in the lumbar spine. IMPRESSION: Moderate amount of colonic stool and gas without obstruction, pneumoperitoneum or other acute intra-abdominal abnormality. Electronically signed by: Kelvin Brewer MD 07/20/2019 8:[address] [facility]
[2019-07-20] MEDS: MAGNESIUM HYDROXIDE 30 ML UD PO SCH (10:29)
[2019-07-20] MEDS ORDERED: metroNIDAZOLE IV PREMIX 500MG 100 ML IVPB ONE ×2 (10:31→19:19)
[2019-07-20] MEDS: WARFARIN SODIUM 2 MG TAB PO SCH (12:30)
--- NOTE | 2019-07-20 14:28 | PN ---
SUPERVISING PHYSICIAN: Jose Ly MD DATE: 07/20/19 SUBJECTIVE: The patient states she feels better today. She is less tender on the right than she was. She did have bowel movements yesterday. She tolerated a clear liquid diet this morning. OBJECTIVE: VITAL SIGNS: Blood pressure 98/66. Heart rate 63. Respiratory rate 16. Temperature 98.3. Oxygen saturation 99%. GENERAL: Ms. Quesada is a 74-year-old female who is in no active distress at this time. NEUROLOGIC: Alert and oriented. LUNGS: Clear to auscultation bilaterally. CARDIOVASCULAR: Regular rate and rhythm. Normal S1, S2. ABDOMEN: Soft. She does have some tenderness to palpation on the right, but subjectively improved. No rebound. LABORATORY: White count 9.2, hemoglobin 12.2, hematocrit 30.9, platelet count 252. INR 2.30 from yesterday. BUN 28, creatinine 1.27. Abdominal x-ray today showed moderate amount of colonic stool and gas without obstruction, pneumoperitoneum or any other acute intraabdominal abnormality. ASSESSMENT: 1. Right colon colitis, likely ischemic in nature. 2. Acute kidney injury secondary to dehydration. 3. Electrolyte imbalance. 4. Coumadin coagulopathy with therapeutic level at this time. 5. Diabetes mellitus, type 2. 6. Gastroesophageal reflux disease. 7. 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 8. History of deep venous thrombosis on chronic Coumadin therapy. 9. Irritable bowel syndrome. PLAN: At this time, we will continue clear liquid diet. I spoke with Dr. Andrae and we are going to give another dose of Milk of Magnesia. I did speak with her about hydration. She states she does not drink water and only drinks Dr. Letha. She pretty much refuses to drink anything other than Dr. Pepper. However, I did instruct her of the appropriate amount of water to drink daily. We are still awaiting cultures including the urine. She is on Levaquin and Flagyl. I will continue those until we have a definitive culture result. I will recheck labs and x-ray tomorrow. I did stop the HCTZ and furosemide that were on the profile as well due to the dehydration. #[id number] [facility]
[2019-07-20] MEDS: ALBUTEROL SULFATE 2.5 MG/3 ML VIAL NEB PRN (18:00)
[2019-07-20] MEDS: SIMVASTATIN 20 MG TAB PO SCH (21:08)
[2019-07-20] MEDS: LISINOPRIL 10 MG TAB PO SCH (21:09)
[2019-07-21] MEDS: ALBUTEROL SULFATE 2.5 MG/3 ML VIAL NEB PRN ×3 (00:50→21:12)
[2019-07-21] MEDS ORDERED: metroNIDAZOLE IV PREMIX 500MG 100 ML IVPB ONE ×3 (02:55→19:37)
[2019-07-21] MEDS: metroNIDAZOLE IV PREMIX 500MG 500 MG in PREMIX BAG 1 BAG IVPB SCH ×3 (04:06→20:20)
[2019-07-21] MEDS: ACETAMINOPHEN 325 MG TAB PO PRN ×2 (05:58→20:41)
[2019-07-21] MEDS: INSULIN LISPRO 100 UNITS/ML PEN SUBCU SCH ×4 (07:25→21:11)
[2019-07-21] MEDS ORDERED: CYCLOBENZAPRINE HCL 5 MG TAB ONE (07:37)
[2019-07-21] MEDS ORDERED: levoFLOXacin 500MG IV 100 ML IVPB ONE (07:38)
--- NOTE | 2019-07-21 07:44 | RAD ---
EXAM DESCRIPTION: XR ABDOMEN 1 VIEW (KUB) CLINICAL HISTORY: abd pain, constipation COMPARISON: July 20, 2019 TECHNIQUE: KUB FINDINGS: Single view of the abdomen demonstrates moderate gas in the transverse colon, similar to previous day's study. A small amount of rectal gas is present without evidence of fecal impaction or marked stool throughout the remainder of the colon. Advanced left and moderate right hip degenerative arthropathy is present and unchanged. No unusual calculi or significant small bowel dilatation noted. No acute intracranial abnormalities noted. IMPRESSION: Stable nonspecific abdomen one view with modest transverse colonic bowel gas without pattern of obstruction. Electronically signed by: Prakash Buchanan MD 07/21/2019 7:43 AM [facility]
[2019-07-21] MEDS: MAGNESIUM HYDROXIDE 30 ML UD PO SCH ×2 (08:00→12:35)
[2019-07-21] MEDS: POLYETHYLENE GLYCOL 3350 17 GM PCKT PO SCH (08:00)
[2019-07-21] MEDS: ALPRAZolam 0.5 MG TAB PO SCH ×2 (08:01→20:41)
[2019-07-21] MEDS: POTASSIUM CHLORIDE 20 MEQ TAB PO SCH (08:01)
[2019-07-21] MEDS: METOPROLOL TARTRATE 50 MG TAB PO SCH ×2 (08:01→20:42)
[2019-07-21] MEDS: CLOPIDOGREL 75 MG TAB PO SCH (08:01)
[2019-07-21] MEDS: VERAPAMIL HCL 40 MG TAB PO SCH ×2 (08:02→20:42)
[2019-07-21] MEDS: CYCLOBENZAPRINE HCL 10 MG TAB PO SCH ×2 (08:03→20:41)
[2019-07-21] MEDS: levoFLOXacin 500MG IV 500 MG in PREMIX BAG 1 BAG IVPB SCH (08:10)
[2019-07-21] MEDS: ONDANSETRON INJ 4 MG/2 ML VIAL IV PRN (10:47)
[2019-07-21] MEDS: WARFARIN SODIUM 2 MG TAB PO SCH (12:35)
--- NOTE | 2019-07-21 14:30 | PN ---
SUPERVISING PHYSICIAN: Jose Ly MD DATE: 07/21/19 SUBJECTIVE: The patient feels better than she has in several days. She continues to have bowel movements and wants to eat something more than just broth. OBJECTIVE: VITAL SIGNS: Blood pressure 102/66. Heart rate 86. Respiratory rate 18. Temperature 98.0. Oxygen saturation 96%. GENERAL: Ms. Quesada is a 74-year-old female who is in no active distress at this time. NEUROLOGIC: Alert and oriented. LUNGS: Clear. CARDIOVASCULAR: Regular rate and rhythm. Normal S1, S2. ABDOMEN: Soft. Positive bowel sounds. She continues to have some tenderness on the right part of the abdomen, but it is significantly better than before. EXTREMITIES: Lower extremities have no significant edema. LABORATORY: White count 7.9, hemoglobin 11.0, platelet count 335. Chemistry with a sodium 137, potassium 3.7, chloride 103, CO2, BUN 19, creatinine 1.25. Glucose 103, calcium 8.9. RADIOLOGY: Abdominal x-ray does not note as much colonic stool as was documented on yesterday's x-ray. ASSESSMENT: 1. Right colon colitis, likely due to ischemia. 2. Acute kidney injury, improved. 3. Electrolyte imbalance, improved. 4. Diabetes mellitus, type 2. 5. Gastroesophageal reflux disease. 6. 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 7. History of deep venous thrombosis on chronic Coumadin therapy. 8. Irritable bowel syndrome. PLAN: We will advance her diet to full liquid today and give an additional dose of Milk of Magnesia. [facility] is going to be notified for evaluation. The patient would benefit from being at [facility] due to her difficulties performing activities of daily living as well as multiple disease processes and medication management. Hopefully she can go to [facility] tomorrow if she continues to progress well. [facility][id number] [facility]
[2019-07-21] MEDS: IV SET AND CAP CHANGE INJ INJ SCH (18:17)
[2019-07-21] MEDS: LISINOPRIL 10 MG TAB PO SCH (20:42)
[2019-07-21] MEDS: SODIUM CHLORIDE 0.9% (FLUSH) 10 ML SYG IV SCH (20:42)
[2019-07-21] MEDS: SIMVASTATIN 20 MG TAB PO SCH (20:42)
[2019-07-22 02:12] VITALS: O2SAT 98
[2019-07-22] MEDS ORDERED: metroNIDAZOLE IV PREMIX 500MG 100 ML IVPB ONE (03:43)
[2019-07-22] MEDS: metroNIDAZOLE IV PREMIX 500MG 500 MG in PREMIX BAG 1 BAG IVPB SCH (03:47)
[2019-07-22 06:32] VITALS: TEMP 97.8
[2019-07-22] MEDS: INSULIN LISPRO 100 UNITS/ML PEN SUBCU SCH ×2 (07:24→11:56)
[2019-07-22] MEDS ORDERED: levoFLOXacin 500MG IV 100 ML IVPB ONE (07:37)
[2019-07-22] MEDS: CYCLOBENZAPRINE HCL 10 MG TAB PO SCH (09:29)
[2019-07-22] MEDS: POTASSIUM CHLORIDE 20 MEQ TAB PO SCH (09:29)
[2019-07-22] MEDS: VERAPAMIL HCL 40 MG TAB PO SCH (09:29)
[2019-07-22] MEDS: CLOPIDOGREL 75 MG TAB PO SCH (09:29)
[2019-07-22] MEDS: ALPRAZolam 0.5 MG TAB PO SCH (09:29)
[2019-07-22] MEDS: METOPROLOL TARTRATE 50 MG TAB PO SCH (09:29)
[2019-07-22] MEDS: levoFLOXacin 500MG IV 500 MG in PREMIX BAG 1 BAG IVPB SCH (09:31)
[2019-07-22] MEDS: POLYETHYLENE GLYCOL 3350 17 GM PCKT PO SCH (09:31)
[2019-07-22] MEDS: SODIUM CHLORIDE 0.9% (FLUSH) 10 ML SYG IV SCH (09:31)
[2019-07-22] MEDS: MAGNESIUM HYDROXIDE 30 ML UD PO SCH (09:31)
--- NOTE | 2019-07-22 11:53 | DS ---
SUPERVISING PHYSICIAN: Jose Ly MD ADMISSION DIAGNOSIS: 1. Right sided abdominal pain with probable infectious colitis. 2. Possible sepsis secondary to #1. 3. Electrolyte imbalance. 4. Chronic coagulopathy secondary to Coumadin therapy. 5. Diabetes mellitus, type 2. 6. History of gastroesophageal reflux disease. 7. History of previous cerebrovascular accident with residual left hemiparesis. 8. History of chronic deep venous thrombosis on Coumadin therapy. 9. Irritable bowel syndrome secondary to cholecystectomy. DISCHARGE DIAGNOSIS: 1. Right colon colitis, likely secondary to ischemic changes. 2. Acute kidney injury, improved. 3. Electrolyte imbalance, improved. 4. Diabetes mellitus, type 2. 5. Gastroesophageal reflux disease. 6. History of previous cerebrovascular accident with residual left sided weakness. 7. History of chronic deep venous thrombosis on Coumadin therapy. 8. Irritable bowel syndrome. HOSPITALS COURSE: This is a 74-year-old female patient who came to the Emergency Department with right sided abdominal pain. It had been going on for 2 to 3 days and associated with some nausea and vomiting, but no fevers or chills. She apparently has chronic diarrhea and has been on antibiotics several times in the past year for pneumonia, but not in the recent past [address] of her abdomen showed possible colitis in the right colon. CBC showed leukocytosis. She also had elevated BUN and creatinine. She was admitted for colitis and Dr. Andrea was consulted. Dr. Andrea evaluated the patient and the patient was on antibiotic therapy, but we felt that the patient likely had ischemic colitis from dehydration and hyperperfusion. The patient's white count improved after antibiotics and fluid resuscitation. Acute kidney injury improved as well. She tolerated a clear liquid diet and advanced to a full liquid diet. Today, she will be discharged on a diabetic diet. She will followup with Dr. Ly on August 03 at 3:[address] Andrea recommended MiraLAX daily and to never take Imodium again. Additionally, the patient drinks 12 Dr. Lethas a day. She has been instructed to please ingest some water instead of so much Dr. Monae. She understands the instructions, however, I am not convinced she is actually going to follow the instructions. She is going to go to [facility] today. #[id number] [facility]
[2019-07-22 14:38] VITALS: BP 114/68
== END 2019-07-22 12:55 | DRG 872 ==
LOC: ER 13:49 → MS 18:34 → OBSVTOIN 18:34
PROVIDERS: ADMIT Nurse Practitioner Family; ATTEND Nurse Practitioner
DX: A41.9 Sepsis, unspecified organism (principal); K55.9 Vascular disorder of intestine, unspecified; I69.354 Hemiplegia and hemiparesis following cerebral infarction affecting left non-dominant side; E87.1 Hypo-osmolality and hyponatremia; N17.9 Acute kidney failure, unspecified; E86.0 Dehydration; K58.0 Irritable bowel syndrome with diarrhea; J44.9 Chronic obstructive pulmonary disease, unspecified; E78.5 Hyperlipidemia, unspecified; I10 Essential (primary) hypertension; K21.9 Gastro-esophageal reflux disease without esophagitis; E11.9 Type 2 diabetes mellitus without complications; Z86.718 Personal history of other venous thrombosis and embolism; Z79.01 Long term (current) use of anticoagulants; Z90.49 Acquired absence of other specified parts of digestive tract; Z79.899 Other long term (current) drug therapy; Z79.02 Long term (current) use of antithrombotics/antiplatelets; Z88.8 Allergy status to other drugs, medicaments and biological substances; Z88.5 Allergy status to narcotic agent; Z88.0 Allergy status to penicillin; Z88.2 Allergy status to sulfonamides; Z88.6 Allergy status to analgesic agent; Z88.7 Allergy status to serum and vaccine; Z87.01 Personal history of pneumonia (recurrent); Z66 Do not resuscitate

== ENCOUNTER → 2019-09-24 | Outpatient (CLI) | payer MEDICARE | LOC: LAB.O 11:52 | PROVIDERS: ATTEND Family Medicine | DX: R53.83 Other fatigue (principal); E11.9 Type 2 diabetes mellitus without complications; E78.5 Hyperlipidemia, unspecified; I10 Essential (primary) hypertension ==

== ENCOUNTER → 2019-10-05 | Outpatient (CLI) | payer MEDICARE ==
--- NOTE | 2019-10-06 19:33 | MRI ---
EXAM DESCRIPTION: Brain w/o Contrast: MRI. CLINICAL HISTORY: DIZZINESS AND GIDDINESS COMPARISON: MRI scan of the brain without contrast January 2015. TECHNIQUE: Multiplanar, high-field MRI unit, multiple diffusion sequences, multiple conventional sequences without contrast. FINDINGS: Region of encephalomalacia and loss of brain substance beginning in the periventricular right parietal and right occipital lobes at the level of the upper ventricles and extending superiorly to the vertex. The ventricles slightly expanded abutting this tissue loss. Hyperintense FLAIR and T2-weighted signal in the tissue surrounding the tissue loss consistent with gliosis.. No hemorrhage, no cerebral edema, no mass-effect. Stable since the prior study. Bilateral foci of hyperintense T2 and FLAIR signal more inferiorly in the periventricular white matter tracks abutting the right frontal and parietal lobes also left frontal subcortical white matter and left parietal subcortical white matter and periventricular white matter abutting the left occipital horn. No change from the prior study. Normal signal in the bilateral basal ganglia. Normal signal in the brainstem and cerebellar hemispheres. No hemorrhage, no parenchymal edema, no mass-effect. Concordance of the diffusion and non-diffusion sequences with no diffusion restriction. Cortical sulci, ventricles, and other CSF spaces, and the subdural spaces are mildly prominent for patient's age. No effacement or displacement. No midline shift. No extra-axial hemorrhage. Normal flow signal void in the major vessels of the [place], and the venous sinuses. IACs are symmetric bilaterally. Minimal regions of increased T2 signal in the right mastoid air cells. No mass effect in the bilateral cerebellopontine angles. Pituitary gland occupies most of the sella. Base of the cerebellar tonsils is above the foramen magnum. No abnormal signal in the paranasal sinuses.. The bony calvarium is intact. IMPRESSION: 1. Region of encephalomalacia in the right parietal lobe and anterior occipital lobe at the level of the ventricles extending to the vertex with surrounding gliosis. Adjacent tissue atrophy. Stable since the prior study. No hemorrhage, no cerebral edema, and no diffusion restriction. 2. Other focal areas of cerebral microvascular disease or age-related changes with no evidence of mass effect, cerebral edema, hemorrhage, or diffusion restriction. No change from the prior study. 3. Mastoiditis on the right is less severe compared to the prior study. Electronically signed by: Isaiah Figueroa MD 10/06/2019 7:31 PM [facility]
== END ==
LOC: MRI 09:00
PROVIDERS: ATTEND Family Medicine
DX: G93.89 Other specified disorders of brain (principal); G31.9 Degenerative disease of nervous system, unspecified; G93.9 Disorder of brain, unspecified; H70.91 Unspecified mastoiditis, right ear

== ENCOUNTER → 2019-11-26 | Outpatient (CLI) | payer MEDICARE | LOC: BFHH 16:11 | PROVIDERS: ATTEND Family Medicine | DX: I69.354 Hemiplegia and hemiparesis following cerebral infarction affecting left non-dominant side (principal); I69.398 Other sequelae of cerebral infarction; Z79.01 Long term (current) use of anticoagulants ==

== ENCOUNTER → 2020-05-31 | Outpatient (CLI) | payer MEDICARE | LOC: BFHH 14:46 | PROVIDERS: ATTEND Family Medicine | DX: I69.354 Hemiplegia and hemiparesis following cerebral infarction affecting left non-dominant side (principal); E11.42 Type 2 diabetes mellitus with diabetic polyneuropathy; I11.0 Hypertensive heart disease with heart failure; N95.0 Postmenopausal bleeding; J44.9 Chronic obstructive pulmonary disease, unspecified; I50.9 Heart failure, unspecified; K58.0 Irritable bowel syndrome with diarrhea; E78.5 Hyperlipidemia, unspecified; Z51.81 Encounter for therapeutic drug level monitoring; Z79.84 Long term (current) use of oral hypoglycemic drugs ==

== ENCOUNTER → 2020-06-15 | Outpatient (CLI) | payer MEDICARE | LOC: BFHH 14:37 | PROVIDERS: ATTEND Internal Medicine Hematology & Oncology | DX: I82.0 Budd-Chiari syndrome (principal); D64.9 Anemia, unspecified; D53.9 Nutritional anemia, unspecified; I11.0 Hypertensive heart disease with heart failure; I50.9 Heart failure, unspecified; E78.5 Hyperlipidemia, unspecified ==

== ENCOUNTER 2020-06-21 21:13 | Inpatient (IN) | payer MEDICARE ==
[2020-06-21] MEDS ORDERED: ONDANSETRON INJ 4 MG/2 ML VIAL IV ONE (21:17)
[2020-06-21] MEDS ORDERED: SODIUM CHLORIDE 0.9% 1000ML 1,000 ML IVS ONE (21:18)
--- NOTE | 2020-06-21 21:39 | ED.PDOC ---
History of Present Illness - General Time Seen by Provider: 06/21/20 21:16 Source: patient, RN notes reviewed, Vital Signs reviewed Additional Information: -year-old female, with history of COPD hypertension diabetes presented to ER because of nausea vomiting not feeling well shortness of breath left-sided chest pain. 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 Looks acutely ill and she is oxygen dependent at home Patient was brought by her daughter - History of Present Illness Timing/Duration: other - today Improving Factors: nothing Worsening Factors: nothing Associated Symptoms: denies symptoms Allergies/Adverse Reactions: Allergies Cimetidine [From Tagamet HB] Allergy (Mild, Verified 07/18/19 14:38) Hives Codeine Allergy (Mild, Verified 07/18/19 14:38) Hives Hydrocodone Allergy (Mild, Verified 07/18/19 14:38) Vomitting Penicillins Allergy (Mild, Verified 07/18/19 14:38) Hives Sulfa Antibiotics Allergy (Mild, Verified 07/18/19 14:38) Hives Aspirin Allergy (Verified 07/18/19 14:38) Carbidopa w/Levodopa Allergy (Verified 07/18/19 14:38) Eluxadoline [From Viberzi] Allergy (Verified 07/18/19 14:38) Gabapentin Allergy (Verified 07/18/19 14:38) Metformin Allergy (Verified 07/18/19 14:38) Tetanus Immune Globulin Allergy (Verified 07/18/19 14:38) Other causes swelling Home Medications: Ambulatory Orders ALPRAZolam [Xanax] 0.5 mg PO BID #0 01/10/15 Cyclobenzaprine HCl [Flexeril] 10 mg PO BID 01/10/15 Furosemide 40 mg PO DAILY 01/10/15 Lisinopril 40 mg PO BEDTIME 01/10/15 Metoprolol Tartrate 100 mg PO BID 01/10/15 Simvastatin 40 mg PO DAILY 01/10/15 Warfarin Sodium 2 mg PO REMY-OTH-DAY 01/10/15 Albuterol Sulfate [Proair Hfa] 2 puff INH Q6H PRN #1 01/11/15 Albuterol Sulfate Nebs [Proventil Nebs] 2.5 mg INH QID PRN 02/13/17 Folic Cgfv-Xxiyjzsune-Jzjbpcjb [Folbic 2.5-25-2 mg] 1 tab PO DAILY 05/24/19 Potassium Chloride [Klor-Con] 20 meq PO DAILY 05/24/19 Verapamil HCl 80 mg PO BID 05/24/19 Acetaminophen [Tylenol] 500 mg PO Q8HR PRN 07/21/19 Warfarin Sodium 1 mg PO REMY-OTH-DAY 07/21/19 Clopidogrel Bisulfate [Plavix] 75 mg PO DAILY tab 07/22/19 Insulin Lispro [Humalog] 0 units SUBCU ACHS pen 07/22/19 Magnesium Hydroxide [Milk Of Magnesia] 30 ml PO DAILY PRN ud 07/22/19 Polyethylene Glycol 3350 [Miralax] 17 gm PO DAILY pckt 07/22/19 Review of Systems - Review of Systems Constitutional: States: chills, weakness EENTM: States: no symptoms reported Cardiology: States: chest pain Gastrointestinal/Abdominal: States: abdominal pain, nausea Musculoskeletal: States: no symptoms reported Skin: States: no symptoms reported Neurological: States: no symptoms reported Endocrine: States: no symptoms reported Past Medical History (General) - Patient Medical History Hx Seizures: No Hx Stroke: Yes - 2009 Hx Dementia: No Hx Asthma: No Hx of COPD: Yes Hx Cardiac Disorders: Yes - Hx DVT Hx Congestive Heart Failure: Yes Hx Pacemaker: No Hx Hypertension: Yes Hx Thyroid Disease: No Hx Diabetes: Yes Hx Gastroesophageal Reflux: No Hx Renal Disease: No Hx Cancer: No Hx of HIV: No Hx Hepatitis C: No Hx MRSA: No - Vaccination History Hx Tetanus, Diphtheria Vaccination: Yes Hx Influenza Vaccination: Yes - 2017 Hx Pneumococcal Vaccination: Yes - Social History Hx Tobacco Use: Yes Hx Chewing Tobacco Use: No Hx Alcohol Use: No Hx Substance Use: No Hx Substance Use Treatment: No Hx Depression: No Hx Physical Abuse: No Hx Emotional Abuse: No Hx Suspected Abuse: No - Female History Patient : No Family Medical History - Family History Mother Family History: Unknown Living Status: Hx Family Congestive Heart Failure: Yes Hx Family Hypertension: Yes Hx Family Diabetes: Yes Hx Family Cancer: Yes - breast -mom;lung-dad Father Family History: Unknown Living Status: Hx Cardiac Disease: Yes Hx Family Cancer: Yes Physical Exam - Physical Exam General Appearance: Obvious distress Eye Exam: bilateral normal Ears, Nose, Throat: hearing grossly normal, normal ENT inspection, normal pharynx Neck: non-tender, full range of motion, supple, normal inspection Respiratory: chest non-tender, lungs clear, normal breath sounds, no respiratory distress, no accessory muscle use Cardiovascular/Chest: normal peripheral pulses, regular rate, rhythm, no edema, no gallop, no JVD, no murmur Peripheral Pulses: radial,right: 2+, radial,left: 2+ Gastrointestinal/Abdominal: normal bowel sounds, non tender, soft, no organomegaly Extremity: normal range of motion, non-tender, normal inspection, no pedal edema, no calf tenderness Neurologic: pe electrical engineer II-XII nml as tested, no motor/sensory deficits, alert, normal mood/affect, oriented x 3 Skin Exam: normal color Lymphatic: no adenopathy Progress - Progress Progress: This is a patient presents to the ER with nausea vomiting weakness coughing left-sided chest pain, 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 daughter is asymptomatic, patient look very weak when she came in patient is on oxygen at home and she is a COPD which obviously puts her at a risk for developing serious complications from Covid, patient was positive for Covid and at the moment she is only on 4 L of nasal cannula with good pulse oximetry, given patient risk factors and obviously clinical condition I discussed case with the hospitalist and will admit the patient Chest x-ray did not show any evidence of adult respiratory distress syndrome, or pneumonia 06/21/20 23:36 Departure - Departure Clinical Impression: COVID-19 Disposition: Discharge to Home or Self Care Condition: Serious Referrals: Jose Ly MD [Primary Care Provider] - 1-2 Weeks Home Medications: Ambulatory Orders ALPRAZolam [Xanax] 0.5 mg PO BID #0 01/10/15 Cyclobenzaprine HCl [Flexeril] 10 mg PO BID 01/10/15 Furosemide 40 mg PO DAILY 01/10/15 Lisinopril 40 mg PO BEDTIME 01/10/15 Metoprolol Tartrate 100 mg PO BID 01/10/15 Simvastatin 40 mg PO DAILY 01/10/15 Warfarin Sodium 2 mg PO REMY-OTH-DAY 01/10/15 Albuterol Sulfate [Proair Hfa] 2 puff INH Q6H PRN #1 01/11/15 Albuterol Sulfate Nebs [Proventil Nebs] 2.5 mg INH QID PRN 02/13/17 Folic Idsy-Nezyxwrecl-Tnoiuoqq [Folbic 2.5-25-2 mg] 1 tab PO DAILY 05/24/19 Potassium Chloride [Klor-Con] 20 meq PO DAILY 05/24/19 Verapamil HCl 80 mg PO BID 05/24/19 Acetaminophen [Tylenol] 500 mg PO Q8HR PRN 07/21/19 Warfarin Sodium 1 mg PO REMY-OTH-DAY 07/21/19 Clopidogrel Bisulfate [Plavix] 75 mg PO DAILY tab 07/22/19 Insulin Lispro [Humalog] 0 units SUBCU ACHS pen 07/22/19 Magnesium Hydroxide [Milk Of Magnesia] 30 ml PO DAILY PRN ud 07/22/19 Polyethylene Glycol 3350 [Miralax] 17 gm PO DAILY pckt 07/22/19 Decision To Admit - Decistion To Admit Decision to Admit Reason: Admit from ER Decision to Admit Date: 06/21/20 Decision to Admit Time: 23:38
--- NOTE | 2020-06-21 22:07 | RAD ---
EXAM DESCRIPTION: Chest,1 View CLINICAL HISTORY: 75 years Female, nausea COMPARISON: 04/27/20 TECHNIQUE: Single AP chest radiograph. FINDINGS: Clear lungs. No pneumothorax or pleural effusion. Normal cardiomediastinal contour. Normal osseous structures. IMPRESSION: 1. No acute cardiopulmonary process. Electronically signed by: Nino Lucas MD 06/21/2020 10:05 PM [facility]
[2020-06-21] MEDS ORDERED: DEXAMETHASONE INJ 10 MG/ML VIAL IV ONE (23:36)
--- NOTE | 2020-06-22 01:00 | HP ---
SUPERVISING PHYSICIAN: Jose Ly MD CHIEF COMPLAINT: Weakness and mild abdominal pain. HISTORY OF PRESENT ILLNESS: This is a 75-year-old female patient who has been feeling poorly since last week. Her symptoms worsened to the point that the day prior to admission she came to the Emergency Room due to extreme weakness as well as shortness of breath. She does have a significant history of chronic obstructive pulmonary disease. Her initial vital signs showed temperature 97.5, heart rate 66, respiratory rate 18, O2 saturation 94% on 3 liters nasal cannula. At some point, they did have to up to 4 liters per minute nasal cannula. She wears 2 liters at home. Her labs showed WBC 4,400, hemoglobin 12.2, hematocrit 37. D-dimer 486. PTT 43.2, fibrinogen 450. Sodium 133, potassium 4.4, chloride 96, BUN 23, creatinine 2.29. Baseline creatinine is about 1.2. Glucose 130, troponin 0.03. COVID was positive. C. difficile was positive for antigen, negative for toxin. Chest x-ray shows no acute cardiopulmonary process. CT of the chest shows 1) Abnormal lung cuello bilaterally, right worse than left, patchy peripheral mixed ground glass and interstitial subsegmental peripheral areas of pneumonitis more dense coalescent consolidation in each posterior lung base with a small right pleural effusion and questionable tiny left pleural effusion. Findings suggest a COVID or viral pneumonitis, possibly with a superimposed atelectasis or bacterial pneumonia in the lung bases. 2) Cardiomegaly. 3) No peripheral pulmonary mass or pneumothorax seen. She received azithromycin and Rocephin in the Emergency Room with multiple breathing treatments. She was admitted to the hospital in stable condition. PAST MEDICAL HISTORY: 1. Chronic obstructive pulmonary disease. 2. Hyperlipidemia. 3. Hypertension. 4. Gastroesophageal reflux disease. 5. Type 2 diabetes mellitus. 6. Previous cerebrovascular accident x2 with some left sided residual hemiparesis. 7. History of deep venous thrombosis. 8. Irritable bowel syndrome. PAST SURGICAL HISTORY: 1. Appendectomy. 2. Cholecystectomy. 3. Hysterectomy. 4. Drainage of vulvar hematoma. HOME MEDICATIONS: Per the EMR. ALLERGIES: CIMETIDINE, CODEINE, HYDROCODONE, PENICILLIN, SULFA ANTIBIOTICS, ASPIRIN, CARBIDOPA/LEVODOPA, ELUXADOLINE, GABAPENTIN, METFORMIN, TETANUS. FAMILY HISTORY: Positive for coronary artery disease. SOCIAL HISTORY: She is retired. She lives in [place]. She smoked quite heavily many years ago, but quit many years ago. She denies any ETOH or illicit drug use. REVIEW OF SYSTEMS: GENERAL: Positive for fatigue. Negative for fever or chills. HEENT: Positive for nasal drainage. Negative for earaches, vision changes or sore throat. RESPIRATORY: Positive for shortness of breath and coughing. Negative for wheezing. CARDIAC: Negative for chest pain, palpitations or tachycardia. GASTROINTESTINAL: Positive for mild diffuse abdominal pain with some nausea. Negative for vomiting, diarrhea or constipation. GENITOURINARY: Negative for hematuria, dysuria or polyuria. SKIN: Negative for lesions or rashes. NEUROLOGIC: Positive for weakness. Negative for headache or seizures. PHYSICAL EXAMINATION: VITAL SIGNS: Temperature 98.7, heart rate 84, blood pressure 98/58. Her blood pressure did drop to 69/37 and 59/36 and went up to 99/52 after some fluids. Respiratory rate 20, O2 saturation 90-91% on 2 liters nasal cannula. It goes up to 94% on 3 liters. GENERAL: This is a 75-year-old female patient lying in her hospital bed. She is in mild respiratory distress. HEENT: Normocephalic, atraumatic. Pupils are equal and reactive. Edentulous. Oropharynx is clear. NECK: Supple without mass. RESPIRATORY: Diminished throughout with a few scattered rhonchi, especially on the right side. CHEST: There is equal rise and fall of the chest with inspiration and expiration. CARDIOVASCULAR: Regular rate and rhythm. GASTROINTESTINAL: Abdomen is soft, nondistended, nontender. Bowel sounds are positive. EXTREMITIES: No cyanosis, clubbing or edema. NEUROLOGIC: Awake, alert and oriented times three. Cranial nerves II-XII are grossly intact as tested. SKIN: Warm, pink and dry. LABORATORY: Followup laboratory shows WBC 1.7, hemoglobin 11.7, hematocrit 35.6. D-dimer 376. Electrolytes are basically within normal limits with the exception of calcium slightly low at 7.8 and magnesium low at 1.6. LD elevated at 251. Creatinine kinase 646. Troponin 0.02. C-reactive protein 2.7. MICROBIOLOGY: Preliminary blood cultures show no growth to date. IMPRESSION: 1. COVID-19 pneumonitis. 2. Sepsis related to bilateral pneumonia, most likely community acquired. Her WBCs are 1.7 with respiratory rate 22. She was hypotensive with blood pressure of 59/36. 3. Clostridium difficile infection. 4. Acute on chronic renal failure. Her creatinine on admission was 2.29. Baseline creatinine is 1.2. 5. Chronic obstructive pulmonary disease with exacerbation. The patient is O2 dependent at home. She also has increased oxygen demand. 6. Mild abdominal pain, most likely secondary to COVID. 7. Type 2 diabetes mellitus. 8. Gastroesophageal reflux disease. 9. Hypertension. 10. Hyperlipidemia. PLAN: The patient has been admitted to the hospital with routine pneumonia and COVID protocol. We will continue on azithromycin, Rocephin, Decadron and Remdesivir. Initially, her home medications were not verified and she is on Coumadin. She did receive some Lovenox. I will recheck her PT/PTT in the morning and get her restarted on her warfarin. Home medications will be started. She will have aggressive pulmonary hygiene including p.r.n. and scheduled albuterol. She will be on sliding scale insulin per protocol. She will have a proton pump inhibitor for ulcer prophylaxis as well as Align and guaifenesin. She will also be on oral vancomycin for C. difficile. We will continue to monitor the patient closely and follow as needed. [facility][id number] [facility]
[2020-06-22] MEDS ORDERED: cefTRIAXone SODIUM 1 GM VIAL ONE ×2 (01:26→08:28)
[2020-06-22] MEDS ORDERED: SODIUM CHL 0.9% 50ML MIN-BAG+ 0 ML IVPB ONE (01:26)
[2020-06-22] MEDS ORDERED: AZITHROMYCIN IV 500 MG in SODIUM CHLORIDE 0.9% 250ML 250 ML IVPB ONE (01:30)
[2020-06-22] MEDS ORDERED: cefTRIAXone SODIUM 1 GM in SODIUM CHL 0.9% 50ML MIN-BAG+ 50 ML IVPB SCH (01:30)
[2020-06-22] MEDS ORDERED: AZITHROMYCIN IV 500 MG VIAL IVPB ONE ×2 (01:31→19:15)
[2020-06-22] MEDS ORDERED: SODIUM CHLORIDE 0.9% 250ML 500 ML ONE (01:32)
[2020-06-22] MEDS ORDERED: REMDESIVIR 200 MG ONE (01:32)
[2020-06-22] MEDS ORDERED: ALBUTEROL INHALER 64 PUFF/8GM INH PRN (01:32)
[2020-06-22] MEDS ORDERED: SODIUM CHLORIDE 0.9% (FLUSH) 10 ML SYG IV PRN (01:33)
[2020-06-22] MEDS ORDERED: ONDANSETRON INJ 4 MG/2 ML VIAL IV PRN (01:33)
[2020-06-22] MEDS ORDERED: DEXTROSE 50% 25 GM/50 ML SYG IV PRN (01:37)
[2020-06-22] MEDS ORDERED: GLUCAGON INJ 1 MG VIAL SUBCU PRN (01:37)
[2020-06-22] MEDS: IV SET AND CAP CHANGE INJ INJ SCH (02:05)
[2020-06-22] MEDS ORDERED: REMDESIVIR 200 MG in SODIUM CHLORIDE 0.9% 250ML 250 ML IVPB ONE (03:00)
[2020-06-22] MEDS ORDERED: PANTOPRAZOLE SODIUM IV 40 MG VIAL IV SCH (06:30)
[2020-06-22] MEDS: INSULIN LISPRO 100 UNITS/ML PEN SUBCU SCH ×4 (07:45→21:00)
--- NOTE | 2020-06-22 08:19 | CT ---
EXAM DESCRIPTION: Chest w/o Contrast CLINICAL HISTORY: 75 years, Female, covid COMPARISON: Current chest x-ray, chest x-ray April 27, 2020 TECHNIQUE: Thin-section noncontrast axial CT images are obtained according to our protocol. Reconstructed MPR images are created and reviewed as well. This exam was performed according to our departmental dose-optimization program, which includes automated exposure control, adjustment of the mA and/or kV according to patient size and/or use of iterative reconstruction technique. FINDINGS: Both lungs, right worse than left, are abnormal in appearance with peripheral patchy subsegmental areas of groundglass opacity/interstitial subsolid infiltrate. Changes are more confluent in each posterior lung base with a tiny amount of subtle associated pleural effusion on the right and questionably minimal pleural fluid on the left. Findings appear to be new from recent prior April 2020 examination. Pattern is consistent with a Covid or viral pneumonitis with superimposed basilar atelectasis and/or developing basilar bacterial pneumonia. Borderline cardiomegaly with aortic and mild coronary calcification and calcified aorta and great vessels noted. Mediastinal or hilar adenopathy or central mass not apparent. Below the diaphragms, no specific abnormality noted. IMPRESSION: 1. Abnormal lung cuello bilaterally, right worse than left with patchy peripheral mixed groundglass and interstitial subsegmental peripheral areas of pneumonitis with more dense coalescent consolidation in each posterior lung base with small right pleural effusion and questionable tiny left pleural effusion. Findings suggest a Covid or viral pneumonitis possibly with a superimposed atelectasis or bacterial pneumonia in the lung bases. 2. Cardiomegaly without congestive failure. 3. No peripheral pulmonary mass or pneumothorax seen. Commonly reported imaging features of (COVID-19 or viral) pneumonia are present. Other processes such as influenza pneumonia and organizing pneumonia, as can be seen with drug toxicity and connective tissue disease, can cause a similar imaging pattern. [PneTyp] Electronically signed by: Prakash Buchanan MD 06/22/2020 8:17 AM STRESS ANALYST
[2020-06-22] MEDS ORDERED: SODIUM CHL 0.9% 50ML MIN-BAG+ 50 ML IVPB ONE (08:28)
[2020-06-22] MEDS: BIFIDOBACTERIUM INFANTIS 4 MG CAP PO SCH (09:02)
[2020-06-22] MEDS: guaiFENesin ER TAB 600 MG TAB PO SCH ×2 (09:02→20:35)
[2020-06-22] MEDS: ENOXAPARIN SODIUM 40 MG/0.4 ML SYG SUBCU SCH (09:03)
[2020-06-22] MEDS: DEXAMETHASONE INJ 10 MG/ML VIAL IV SCH (09:06)
[2020-06-22] MEDS: ALBUTEROL INHALER 64 PUFF/8GM INH SCH ×4 (09:30→19:45)
[2020-06-22] MEDS ORDERED: FUROSEMIDE 40 MG TAB ONE (17:20)
[2020-06-22] MEDS: FUROSEMIDE 40 MG TAB PO SCH (17:22)
[2020-06-22] MEDS: REMDESIVIR 100 MG in SODIUM CHLORIDE 0.9% 250ML 250 ML IVPB SCH (17:23)
[2020-06-22] MEDS: VANCOMYCIN ORAL LIQUID 2,000 MG/80 ML BOTTLE PO SCH (17:23)
[2020-06-22] MEDS ORDERED: ALPRAZolam 0.5 MG TAB ONE (19:14)
[2020-06-22] MEDS ORDERED: VERAPAMIL HCL 40 MG TAB ONE (19:15)
[2020-06-22] MEDS ORDERED: METOPROLOL TARTRATE 50 MG TAB ONE (19:15)
[2020-06-22] MEDS ORDERED: CYCLOBENZAPRINE HCL 10 MG TAB ONE (19:15)
[2020-06-22] MEDS ORDERED: SIMVASTATIN 20 MG TAB ONE (19:15)
[2020-06-22] MEDS ORDERED: SODIUM CHLORIDE 0.9% 250ML 250 ML ONE (19:16)
[2020-06-22] MEDS ORDERED: LISINOPRIL 10 MG TAB ONE (19:16)
[2020-06-22] MEDS: cefTRIAXone SODIUM 1 GM in SODIUM CHL 0.9% 50ML MIN-BAG+ 50 ML IVPB SCH (19:50)
[2020-06-22] MEDS: LISINOPRIL 10 MG TAB PO SCH ×2 (20:34→21:03)
[2020-06-22] MEDS: VERAPAMIL HCL 40 MG TAB PO SCH (20:35)
[2020-06-22] MEDS: ALPRAZolam 0.5 MG TAB PO SCH (20:35)
[2020-06-22] MEDS: METOPROLOL TARTRATE 50 MG TAB PO SCH ×2 (20:35→21:02)
[2020-06-22] MEDS: CYCLOBENZAPRINE HCL 10 MG TAB PO SCH (20:35)
[2020-06-22] MEDS: SIMVASTATIN 20 MG TAB PO SCH (20:35)
[2020-06-22] MEDS ORDERED: AZITHROMYCIN IV 500 MG in SODIUM CHLORIDE 0.9% 250ML 250 ML IVPB SCH (21:00)
[2020-06-22] MEDS: ACETAMINOPHEN 325 MG TAB PO PRN (21:05)
[2020-06-23] MEDS: VANCOMYCIN ORAL LIQUID 2,000 MG/80 ML BOTTLE PO SCH ×3 (00:15→12:41)
[2020-06-23] MEDS ORDERED: PANTOPRAZOLE SODIUM TAB 40 MG PO ONE (04:43)
[2020-06-23] MEDS: PANTOPRAZOLE SODIUM TAB 40 MG PO SCH (05:56)
[2020-06-23] MEDS: GLIMEPIRIDE 2 MG TAB PO SCH (07:32)
[2020-06-23] MEDS: ALBUTEROL INHALER 64 PUFF/8GM INH SCH ×4 (07:45→20:30)
[2020-06-23] MEDS: INSULIN LISPRO 100 UNITS/ML PEN SUBCU SCH ×4 (08:08→22:04)
[2020-06-23] MEDS: LISINOPRIL 10 MG TAB PO SCH (09:25)
[2020-06-23] MEDS: VERAPAMIL HCL 40 MG TAB PO SCH ×2 (09:42→21:14)
[2020-06-23] MEDS: ENOXAPARIN SODIUM 40 MG/0.4 ML SYG SUBCU SCH (09:42)
[2020-06-23] MEDS: ALPRAZolam 0.5 MG TAB PO SCH ×2 (09:42→21:14)
[2020-06-23] MEDS: DEXAMETHASONE INJ 10 MG/ML VIAL IV SCH (09:42)
[2020-06-23] MEDS: METOPROLOL TARTRATE 50 MG TAB PO SCH ×2 (09:43→21:27)
[2020-06-23] MEDS: POTASSIUM CHLORIDE 20 MEQ TAB PO SCH (09:43)
[2020-06-23] MEDS: guaiFENesin ER TAB 600 MG TAB PO SCH ×2 (09:43→21:14)
[2020-06-23] MEDS: BIFIDOBACTERIUM INFANTIS 4 MG CAP PO SCH (09:43)
[2020-06-23] MEDS: CYCLOBENZAPRINE HCL 10 MG TAB PO SCH ×2 (09:43→21:13)
[2020-06-23] MEDS: FUROSEMIDE 40 MG TAB PO SCH ×2 (10:37→17:47)
[2020-06-23] MEDS ORDERED: WARFARIN SODIUM 1 MG TAB PO SCH (12:00)
[2020-06-23] MEDS ORDERED: WARFARIN SODIUM 1 MG TAB PO ONE (12:00)
[2020-06-23] MEDS: WARFARIN SODIUM 2 MG TAB PO SCH ×2 (13:18→13:41)
--- NOTE | 2020-06-23 14:09 | PN ---
SUPERVISING PHYSICIAN: Jose Ly MD DATE: 06/23/20 SUBJECTIVE: The patient is sitting up in bed. She states she is still quite weak and does not feel like she can get out of bed. She denies any chest pain, nausea or vomiting. OBJECTIVE: VITAL SIGNS: Temperature 97.7, heart rate 77, blood pressure 104/67, respiratory rate 16, O2 saturation 91% on 3 liter nasal cannula. RESPIRATORY: Diminished breath sounds throughout. CARDIAC: Regular rate and rhythm. NEUROLOGIC: Awake, alert and oriented times three. LABORATORY: WBCs 6,500 with hemoglobin 11.8, hematocrit 35.4. She has a left shift on her differential. INR 2.91, fibrinogen 409, D-dimer 611. Blood sugars have run between 162 and 242. Electrolytes are basically within normal limits with the exception of her calcium is 7.7. AST 45, alkaline phosphatase 36, LD 222, creatinine kinase 354. C-reactive protein 2.8. MICROBIOLOGY: Stool cultures are pending. Preliminary blood cultures show no growth after 24 hours. All other labs and films have been reviewed via the EMR. ASSESSMENT: 1. COVID-19 pneumonitis. 2. Sepsis related to bilateral pneumonia, most likely community acquired. Her WBCs are 1.7 with respiratory rate 22. She was hypotensive with blood pressure of 59/36. 3. Clostridium difficile infection. 4. Acute on chronic renal failure. Her creatinine on admission was 2.29. Baseline creatinine is 1.2. 5. Chronic obstructive pulmonary disease with exacerbation. The patient is O2 dependent at home. She also has increased oxygen demand. 6. Mild abdominal pain, most likely secondary to COVID. 7. Type 2 diabetes mellitus. 8. Gastroesophageal reflux disease. 9. Hypertension. 10. Hyperlipidemia. PLAN: We will continue present supportive care including the COVID guidelines with medications. Lovenox has been discontinued and she is on her home medication dosing of Coumadin. I will check her PT/INR with her routine lab in the morning. We will also have physical therapy evaluation in the next several days to ensure safety for discharge. We will continue to monitor the patient closely and follow as needed. #[id number] MTDD
[2020-06-23] MEDS: REMDESIVIR 100 MG in SODIUM CHLORIDE 0.9% 250ML 250 ML IVPB SCH (17:48)
[2020-06-23] MEDS: VANCOMYCIN HCL 125 MG CAP PO SCH ×2 (17:48→23:44)
[2020-06-23] MEDS: cefTRIAXone SODIUM 1 GM in SODIUM CHL 0.9% 50ML MIN-BAG+ 50 ML IVPB SCH (20:00)
[2020-06-23] MEDS ORDERED: cefTRIAXone SODIUM 1 GM VIAL IM ONE (20:54)
[2020-06-23] MEDS: SIMVASTATIN 20 MG TAB PO SCH (21:13)
[2020-06-23] MEDS ORDERED: LIDOCAINE 1% 2 ML VIAL INJ ONE ×2 (21:57→22:01)
[2020-06-24] MEDS: ACETAMINOPHEN 325 MG TAB PO PRN ×2 (02:00→21:30)
[2020-06-24] MEDS: VANCOMYCIN HCL 125 MG CAP PO SCH ×3 (06:03→17:11)
[2020-06-24] MEDS: PANTOPRAZOLE SODIUM TAB 40 MG PO SCH (06:04)
--- NOTE | 2020-06-24 06:41 | RAD ---
EXAM: XR Chest, 1 View CLINICAL HISTORY: The patient is 75 years old and is Female; covid TECHNIQUE: Single upright portable view of the chest. COMPARISON: June 21, 2020. FINDINGS: Lungs: Hazy bilateral airspace opacities, increased in conspicuity. Pleural space: No pleural effusion or pneumothorax. Heart: The cardiac silhouette is enlarged versus artifact of AP technique. Cardiomediastinal silhouette is not significantly changed given the differences in technique. Mediastinum: See above. Bones/joints: The bones and joints are unchanged as visualized. Upper abdomen: No free air in the visualized upper abdomen. IMPRESSION: Hazy bilateral airspace opacities, increased in conspicuity. Electronically signed by: Gilda Petty MD 06/24/2020 6:40 AM ACID CONDITIONING WORKER
[2020-06-24] MEDS: INSULIN LISPRO 100 UNITS/ML PEN SUBCU SCH ×4 (07:20→21:57)
[2020-06-24] MEDS: GLIMEPIRIDE 2 MG TAB PO SCH (07:40)
[2020-06-24] MEDS: BIFIDOBACTERIUM INFANTIS 4 MG CAP PO SCH (09:22)
[2020-06-24] MEDS: METOPROLOL TARTRATE 50 MG TAB PO SCH ×2 (09:22→21:30)
[2020-06-24] MEDS: FUROSEMIDE 40 MG TAB PO SCH ×2 (09:22→17:11)
[2020-06-24] MEDS: VERAPAMIL HCL 40 MG TAB PO SCH ×2 (09:22→21:30)
[2020-06-24] MEDS: POTASSIUM CHLORIDE 20 MEQ TAB PO SCH (09:22)
[2020-06-24] MEDS: CYCLOBENZAPRINE HCL 10 MG TAB PO SCH ×2 (09:22→21:29)
[2020-06-24] MEDS: guaiFENesin ER TAB 600 MG TAB PO SCH ×2 (09:22→21:29)
[2020-06-24] MEDS: ALPRAZolam 0.5 MG TAB PO SCH ×2 (09:22→21:30)
[2020-06-24] MEDS: ALBUTEROL INHALER 64 PUFF/8GM INH SCH ×4 (09:24→20:33)
[2020-06-24] MEDS ORDERED: DEXAMETHASONE 4 MG TAB ONE (09:28)
[2020-06-24] MEDS: CEFDINIR 300 MG CAP PO SCH ×2 (09:29→21:29)
[2020-06-24] MEDS: AZITHROMYCIN 250 MG TAB PO SCH (09:29)
[2020-06-24] MEDS: WARFARIN SODIUM 2 MG TAB PO SCH (11:57)
[2020-06-24] MEDS: DEXAMETHASONE INJ 4 MG/ML VIAL IV SCH (12:59)
[2020-06-24] MEDS: DEXAMETHASONE INJ 10 MG/ML VIAL PO SCH (13:31)
--- NOTE | 2020-06-24 16:00 | PN ---
SUPERVISING PHYSICIAN: Jose Ly MD DATE: 06/24/20 SUBJECTIVE: The patient remains weak. She did work with physical therapy. I discussed with her daughter, she is probably not going to be safe enough to discharge home. We need to consider possible inpatient rehabilitation such as [facility]. We will continue to discuss those as she progresses. She denied mention of any chest pain, nausea or vomiting. She is still having a significant amount of diarrhea, although she feels like it is slowing down. OBJECTIVE: VITAL SIGNS: Temperature 97.7, heart rate 67, blood pressure 99/65, respiratory rate 20, O2 saturation 93 to 94% on 3 to 6 liter nasal cannula. GENERAL: The patient looks to be resting comfortably. She does not seem to be in any distress. She is alert and conversive. RESPIRATORY: Diminished breath sounds throughout. I do not hear any rhonchi or wheezing, no rales. CARDIAC: Regular rate and rhythm. ABDOMEN: Soft, non-tender, positive bowel sounds. NEUROLOGIC: Alert and oriented times three. LABORATORY: White count 8,000, hemoglobin 12, hematocrit 35.3, platelet count 230,000, differential does show a left shift today. Coagulation studies show D- dimer is now down to 428. Chemistries show normal electrolytes. Creatinine is down to 1.51, blood sugar ranges between 164 and 221. Calcium 7.5 with albumin of 2.9 which corrects to 8.2. Magnesium is low at 1.6 but showing to be stable. Liver functions are showing to be within normal limits. C-difficult toxin by PCR is pending. MICROBIOLOGY: Blood cultures are negative at 48 hours. RADIOLOGY: Chest x-ray this morning per radiology interpretation showed hazy bilateral airspace opacities, increased in conspicuity. ASSESSMENT: 1. COVID-19 pneumonitis with concerns for possible developing pneumonia. 2. Clostridioides difficile infection with mild associated colitis. 3. Acute on chronic renal failure showing return to baseline levels. 4. Chronic obstructive pulmonary disease with exacerbation secondary to #1. The patient is chronically O2 dependent. 5. Mild abdominal pain, improving and likely secondary to underlying Clostridium difficile colitis. 6. Type 2 diabetes mellitus. 7. Gastroesophageal reflux disease. 8. Hypertension. 9. Hyperlipidemia. PLAN: We will continue with medications orally as she is not able to tolerate any IV antibiotics at this time due to the underlying C-difficile infection. We have switched her to oral vancomycin as well as oral Decadron. She is on Coumadin with an INR showing to be 2.91 with INR pending today. We will continue with oral medications as she is refusing IVs at this point. She has had 3 IVs apparently that have not worked well and she refuses the rest because everything is painful. At this point, we will continue with Vancomycin as a Covid treatment and seems to be doing okay. We will watch her labs and chest x- rays closely. I may need to talk to Dr. Warren in regard to possibly continuing with antibiotics versus just keeping with oral vancomycin as the Covid pneumonia is going to be complicated by an left C-difficile colitis. She did have physical therapy evaluation and indicated that she has significantly weakened, I talked with her daughter regards plan of care, possibly transferring the patient on discharge to [facility] for continued inpatient rehabilitation as the patient is normal independent and lives at home. We will touch base with [facility] on Friday and follow that recommendation and that referral. If that is not a possibility, then certainly a care home placement would be warranted. Until then, we will continue to monitor and treat as needed. [facility][id number] [facility]
[2020-06-24] MEDS ORDERED: ENOXAPARIN SODIUM 40 MG/0.4 ML SYG SUBCU ONE (19:09)
[2020-06-24] MEDS: SIMVASTATIN 20 MG TAB PO SCH (21:30)
[2020-06-24] MEDS: LISINOPRIL 10 MG TAB PO SCH (21:30)
[2020-06-24] MEDS ORDERED: INSULIN LISPRO 100 UNITS/ML PEN SUBCU ONE (21:50)
[2020-06-25] MEDS: VANCOMYCIN HCL 125 MG CAP PO SCH ×5 (00:03→23:36)
[2020-06-25] MEDS: IV SET AND CAP CHANGE INJ INJ SCH (01:51)
[2020-06-25] MEDS: PANTOPRAZOLE SODIUM TAB 40 MG PO SCH (06:07)
[2020-06-25] MEDS: INSULIN LISPRO 100 UNITS/ML PEN SUBCU SCH ×4 (08:26→20:26)
[2020-06-25] MEDS: ALBUTEROL INHALER 64 PUFF/8GM INH SCH ×4 (08:34→20:46)
[2020-06-25] MEDS: METOPROLOL TARTRATE 50 MG TAB PO SCH ×2 (09:20→20:25)
[2020-06-25] MEDS: GLIMEPIRIDE 2 MG TAB PO SCH (09:20)
[2020-06-25] MEDS: VERAPAMIL HCL 40 MG TAB PO SCH ×2 (09:21→20:25)
[2020-06-25] MEDS: POTASSIUM CHLORIDE 20 MEQ TAB PO SCH (09:21)
[2020-06-25] MEDS: CYCLOBENZAPRINE HCL 10 MG TAB PO SCH ×2 (09:21→20:25)
[2020-06-25] MEDS: guaiFENesin ER TAB 600 MG TAB PO SCH ×2 (09:21→20:25)
[2020-06-25] MEDS: BIFIDOBACTERIUM INFANTIS 4 MG CAP PO SCH (09:21)
[2020-06-25] MEDS: ALPRAZolam 0.5 MG TAB PO SCH ×2 (09:21→20:25)
[2020-06-25] MEDS ORDERED: CEFDINIR 300 MG CAP ONE ×2 (09:26→19:15)
[2020-06-25] MEDS ORDERED: AZITHROMYCIN 250 MG TAB PO ONE (09:26)
[2020-06-25] MEDS: CEFDINIR 300 MG CAP PO SCH ×2 (09:28→20:25)
[2020-06-25] MEDS: AZITHROMYCIN 250 MG TAB PO SCH (09:28)
[2020-06-25] MEDS: FUROSEMIDE 40 MG TAB PO SCH ×2 (09:30→18:06)
[2020-06-25] MEDS ORDERED: DEXAMETHASONE 4 MG TAB ONE (09:33)
[2020-06-25] MEDS ORDERED: DEXAMETHASONE 1 MG TAB ONE ×2 (09:57→10:07)
[2020-06-25] MEDS: DEXAMETHASONE INJ 4 MG/ML VIAL IV SCH (10:01)
[2020-06-25] MEDS: DEXAMETHASONE INJ 10 MG/ML VIAL PO SCH (10:01)
[2020-06-25] MEDS: WARFARIN SODIUM 1 MG TAB PO SCH (12:02)
--- NOTE | 2020-06-25 19:42 | PN ---
SUPERVISING PHYSICIAN: Jose Ly MD DATE: 06/25/20 SUBJECTIVE: The patient is doing well today. She is still having quite a bit of diarrhea and remains weak. I again discussed with her that about issuing and assessment for placement for physical therapy, continuation as an outpatient to rehabilitation through [facility] or a senior living facility. She denied any chest pain, nausea or vomiting. . OBJECTIVE: VITAL SIGNS: Temperature 97.79 pulse 68, blood pressure 120/75, respiratory rate 20, O2 saturation 92 to 93% on 3 liter nasal cannula at rest. GENERAL: The patient looks to be resting comfortably. She does not seem to be in any distress. She is alert and conversive. RESPIRATORY: Diminished breath sounds throughout. I do not hear any rhonchi or wheezing, no rales. CARDIAC: Regular rate and rhythm. ABDOMEN: Soft, non-tender, positive bowel sounds. NEUROLOGIC: Alert and oriented times three. LABORATORY: Blood sugars ranging between 158 and 225. PT 19.3, INR 1.95 MICROBIOLOGY: Blood cultures remain negative after 3 days. . RADIOLOGY: No radiographic studies to review today. ASSESSMENT: 1. COVID-19 pneumonitis with pneumonia. 2. Clostridioides difficile infection with mild associated colitis. 3. Acute on chronic renal failure showing return to baseline levels. 4. Chronic obstructive pulmonary disease with exacerbation secondary to #1. The patient is chronically O2 dependent. 5. Mild abdominal pain, improving and likely secondary to underlying Clostridium difficile colitis. 6. Type 2 diabetes mellitus. 7. Gastroesophageal reflux disease. 8. Hypertension. 9. Hyperlipidemia. PLAN: We will continue with current plan of treatment anticipating discharge tomorrow if she can get placement at [facility] or a senior living. and evidently it is going to be 2 weeks to safely return home at this point. She is in agreement to that plan of care. We will continue with vancomycin. She remains on Coumadin. We will continue with oral antibiotics in the form of vancomycin. I will talk to Dr. Warren if we need to take into consideration of possibly continuing treatment of underlying pneumonia, although at this point she seems to be doing well and we will repeat a chest x-ray in the morning and further assess the need. We will recheck her labs again and await a referral response. Until we can transition him to outpatient management, we will continue to monitor and treat as needed. #[id number] [facility]
[2020-06-25] MEDS: SIMVASTATIN 20 MG TAB PO SCH (20:25)
[2020-06-25] MEDS: LISINOPRIL 10 MG TAB PO SCH (20:25)
[2020-06-25] MEDS ORDERED: diphenhydrAMINE HCL 25 MG CAP PO ONE (21:56)
[2020-06-25] MEDS: ACETAMINOPHEN 325 MG TAB PO PRN (22:10)
[2020-06-26] MEDS: VANCOMYCIN HCL 125 MG CAP PO SCH ×4 (06:04→23:50)
[2020-06-26] MEDS: PANTOPRAZOLE SODIUM TAB 40 MG PO SCH (06:04)
--- NOTE | 2020-06-26 07:13 | RAD ---
EXAM: XR Chest, 1 View CLINICAL HISTORY: The patient is 75 years old and is Female; covid TECHNIQUE: Frontal view of the chest. COMPARISON: Chest x-ray 06/24/2020. FINDINGS: Lungs: Patchy airspace disease most prominent in the right lung. Prominent interstitial markings. Pleural space: Unremarkable. No pneumothorax. Heart: Unremarkable. Mediastinum: Unremarkable. Bones/joints: Unremarkable. IMPRESSION: Patchy airspace disease most prominent in the right lung. Electronically signed by: Gian Thompson MD 06/26/2020 7:12 AM [facility]
[2020-06-26] MEDS: INSULIN LISPRO 100 UNITS/ML PEN SUBCU SCH ×4 (07:35→20:17)
[2020-06-26] MEDS: GLIMEPIRIDE 2 MG TAB PO SCH (07:45)
[2020-06-26] MEDS: ALBUTEROL INHALER 64 PUFF/8GM INH SCH ×4 (08:05→20:24)
[2020-06-26] MEDS: ALPRAZolam 0.5 MG TAB PO SCH ×2 (09:11→20:19)
[2020-06-26] MEDS: METOPROLOL TARTRATE 50 MG TAB PO SCH ×2 (09:11→20:19)
[2020-06-26] MEDS: FUROSEMIDE 40 MG TAB PO SCH ×2 (09:11→17:17)
[2020-06-26] MEDS: CYCLOBENZAPRINE HCL 10 MG TAB PO SCH ×2 (09:11→20:19)
[2020-06-26] MEDS: guaiFENesin ER TAB 600 MG TAB PO SCH ×2 (09:11→20:19)
[2020-06-26] MEDS: VERAPAMIL HCL 40 MG TAB PO SCH ×2 (09:11→20:19)
[2020-06-26] MEDS: BIFIDOBACTERIUM INFANTIS 4 MG CAP PO SCH (09:11)
[2020-06-26] MEDS: POTASSIUM CHLORIDE 20 MEQ TAB PO SCH (09:12)
[2020-06-26] MEDS ORDERED: DEXAMETHASONE 1 MG TAB ONE (09:14)
[2020-06-26] MEDS: AZITHROMYCIN 250 MG TAB PO SCH (09:15)
[2020-06-26] MEDS: CEFDINIR 300 MG CAP PO SCH (09:15)
[2020-06-26] MEDS: DEXAMETHASONE 4 MG TAB PO SCH (09:16)
[2020-06-26] MEDS: WARFARIN SODIUM 2 MG TAB PO SCH (11:59)
[2020-06-26] MEDS: ACETAMINOPHEN 325 MG TAB PO PRN (20:18)
[2020-06-26] MEDS: LISINOPRIL 10 MG TAB PO SCH (20:19)
[2020-06-26] MEDS: SIMVASTATIN 20 MG TAB PO SCH (20:19)
[2020-06-27] MEDS: PANTOPRAZOLE SODIUM TAB 40 MG PO SCH (06:10)
[2020-06-27] MEDS: VANCOMYCIN HCL 125 MG CAP PO SCH ×3 (06:10→16:35)
[2020-06-27] MEDS: ALBUTEROL INHALER 64 PUFF/8GM INH SCH ×4 (07:20→20:56)
[2020-06-27] MEDS: INSULIN LISPRO 100 UNITS/ML PEN SUBCU SCH ×4 (08:02→20:47)
--- NOTE | 2020-06-27 08:27 | PN ---
SUPERVISING PHYSICIAN: Prakash Page MD DATE: 06/26/20 SUBJECTIVE: The patient is still having quite a bit of diarrhea. No other complaints. I am still trying to get her placed either in a retirement facility for [facility]. She denies any significant shortness of breath at this point, but she did request that her diet be changed to a regular diet as she is not tolerating an ADA diet apparently. OBJECTIVE: VITAL SIGNS: Temperature 98, pulse 77, blood pressure 164/85, respiratory rate 20, O2 saturation 95% on 2 liter nasal cannula. GENERAL: The patient is resting comfortably. She just finished lunch. She is alert. RESPIRATORY: Lung sounds remain clear, just a little diminished towards the bases. CARDIAC: Regular rate and rhythm. ABDOMEN: Soft, nontender, positive bowel sounds. EXTREMITIES: No edema. NEUROLOGIC: Alert and oriented times three. LABORATORY: White count 6,700, hemoglobin 12.1, hematocrit 35.4, platelet count 291,000. Differential does show a left shift. Chemistries show normal electrolytes. Creatinine now is at 1.26. Blood sugars ranging between 167 and 238. Calcium normal at 8.4. Liver functions within normal limits. C-reactive protein remans less than 0.8. C. difficile toxin by PCR was detected, again suggestive of C. difficile infection. MICROBIOLOGY: Blood cultures remain negative after 4 days. MRSA surveillance cultures were negative at 48 hours. RADIOLOGY: Chest x-ray this morning per radiologic interpretation shows just patchy airspace disease most prominent in the right lung. ASSESSMENT: 1. COVID-19 pneumonitis with resolving pneumonia. 2. Clostridioides difficile infection with mild associated colitis on oral vancomycin. 3. Acute on chronic renal failure with the patient now at baseline levels. 4. Chronic obstructive pulmonary disease, secondary to #1, on chronic O2. 5. Type 2 diabetes mellitus. 6. Gastroesophageal reflux disease. 7. Hypertension. 8. Hyperlipidemia. PLAN: We will continue with antibiotics just with oral vancomycin at this point. She is on Decadron still. All other antibiotics have stopped. She did finish a full course of azithromycin. Her Coumadin has been therapeutic. We will continue to monitor INRs. We did discuss with her that we will work on her diet and if we have to, we can be more aggressive with her sliding scale. We have sent a referral to [facility], but my understanding is that they will not take her as a patient until she is 10 days post diagnosis, which would put her on 07/01/20. Our best option may be to try to do a retirement facility placement and then she can transfer from there to [facility]. The only problem is, I am not sure we will find a bed at a retirement facility. We will continue to attempt placement. At this time, she is stable. She remains on oral vancomycin. We will watch her I&Os closely. Until the patient can transition to outpatient management, we will continue to monitor and treat as needed. #[id number] MTDD
[2020-06-27] MEDS: GLIMEPIRIDE 2 MG TAB PO SCH (10:03)
[2020-06-27] MEDS: CYCLOBENZAPRINE HCL 10 MG TAB PO SCH ×2 (10:04→20:27)
[2020-06-27] MEDS: DEXAMETHASONE 4 MG TAB PO SCH (10:04)
[2020-06-27] MEDS: ALPRAZolam 0.5 MG TAB PO SCH ×2 (10:04→20:27)
[2020-06-27] MEDS: FUROSEMIDE 40 MG TAB PO SCH ×2 (10:04→16:35)
[2020-06-27] MEDS: VERAPAMIL HCL 40 MG TAB PO SCH ×2 (10:04→20:26)
[2020-06-27] MEDS: BIFIDOBACTERIUM INFANTIS 4 MG CAP PO SCH (10:05)
[2020-06-27] MEDS: POTASSIUM CHLORIDE 20 MEQ TAB PO SCH (10:05)
[2020-06-27] MEDS: guaiFENesin ER TAB 600 MG TAB PO SCH ×2 (10:05→20:27)
[2020-06-27] MEDS: METOPROLOL TARTRATE 50 MG TAB PO SCH ×2 (10:05→20:25)
[2020-06-27] MEDS: WARFARIN SODIUM 1 MG TAB PO SCH (12:32)
--- NOTE | 2020-06-27 13:13 | PN ---
SUPERVISING PHYSICIAN: Prakash Page MD DATE: 06/27/20 SUBJECTIVE: The patient is resting in bed, still having several bouts of diarrhea. I did discuss with her her plan of care is to go to [facility] after she has been here and cleared COVID testing which should be occurring on 07/02/20. She is encouraged to do her deep breathing exercises and continue with physical therapy efforts as much as possible. OBJECTIVE: VITAL SIGNS: Temperature 97.9, pulse 65, blood pressure 141/81, O2 saturation 93-94% on 2 liter nasal cannula. GENERAL: The patient is resting comfortably. She just finished lunch. She is alert. RESPIRATORY: Lung sounds remain clear, just a little diminished towards the bases. CARDIAC: Regular rate and rhythm. ABDOMEN: Soft, nontender, positive bowel sounds. EXTREMITIES: No edema. NEUROLOGIC: Alert and oriented times three. LABORATORY: White count 6,700, hemoglobin 12.1, hematocrit 35.4 on yesterday's labs. They have been fairly stable as well as her chemistries with creatinine 1.25. Blood sugars are ranging between 163 up to 327. MICROBIOLOGY: Blood cultures remain negative after 5 days. RADIOLOGY: No additional radiographic studies today. ASSESSMENT: 1. COVID-19 pneumonitis with resolving pneumonia. 2. Clostridioides difficile infection with mild associated colitis on oral vancomycin. 3. Acute on chronic renal failure with the patient now at baseline levels. 4. Chronic obstructive pulmonary disease, secondary to #1, on chronic O2. 5. Type 2 diabetes mellitus. 6. Gastroesophageal reflux disease. 7. Hypertension. 8. Hyperlipidemia. PLAN: We will continue with tenderness of the with oral vancomycin for C. difficile. She did finish the course of treatment for COVID pneumonia. We are still encouraging good bronchial hygiene. I anticipate discharging on 07/02/20 to [facility]. Until that point, we will continue to monitor and treat as needed. #[id number] MTDD
[2020-06-27] MEDS: LISINOPRIL 10 MG TAB PO SCH (20:26)
[2020-06-27] MEDS: SIMVASTATIN 10 MG TAB PO SCH (20:55)
[2020-06-28] MEDS: VANCOMYCIN HCL 125 MG CAP PO SCH ×5 (00:10→23:49)
[2020-06-28] MEDS: IV SET AND CAP CHANGE INJ INJ SCH (02:11)
[2020-06-28] MEDS: PANTOPRAZOLE SODIUM TAB 40 MG PO SCH (06:05)
[2020-06-28] MEDS: ALBUTEROL INHALER 64 PUFF/8GM INH SCH ×4 (08:00→21:30)
[2020-06-28] MEDS: METOPROLOL TARTRATE 50 MG TAB PO SCH ×2 (10:10→21:00)
[2020-06-28] MEDS: DEXAMETHASONE 4 MG TAB PO SCH (10:11)
[2020-06-28] MEDS: guaiFENesin ER TAB 600 MG TAB PO SCH ×2 (10:11→21:00)
[2020-06-28] MEDS: POTASSIUM CHLORIDE 20 MEQ TAB PO SCH (10:11)
[2020-06-28] MEDS: FUROSEMIDE 40 MG TAB PO SCH ×2 (10:11→16:24)
[2020-06-28] MEDS: VERAPAMIL HCL 40 MG TAB PO SCH ×2 (10:11→20:59)
[2020-06-28] MEDS: BIFIDOBACTERIUM INFANTIS 4 MG CAP PO SCH (10:11)
[2020-06-28] MEDS: ALPRAZolam 0.5 MG TAB PO SCH ×2 (10:11→21:00)
[2020-06-28] MEDS: CYCLOBENZAPRINE HCL 10 MG TAB PO SCH ×2 (10:11→21:00)
[2020-06-28] MEDS: GLIMEPIRIDE 2 MG TAB PO SCH (10:11)
[2020-06-28] MEDS: INSULIN LISPRO 100 UNITS/ML PEN SUBCU SCH ×4 (10:14→21:08)
[2020-06-28] MEDS: WARFARIN SODIUM 2 MG TAB PO SCH (12:10)
--- NOTE | 2020-06-28 13:25 | PN ---
SUPERVISING PHYSICIAN: Prakash Page MD DATE: 06/28/20 SUBJECTIVE: The patient is sitting up in bed. She is on the phone. She has no complaints at this time. OBJECTIVE: VITAL SIGNS: Temperature 97.9, heart rate 65, blood pressure 147/80, respiratory rate 19, O2 saturation 93% on 3 liters nasal cannula. RESPIRATORY: Diminished at the bases. HEART: Regular rate and rhythm. NEUROLOGIC: Alert and oriented times three. LABORATORY: Blood sugars have run between 104 and 294. All other labs and films have been reviewed via the EMR. ASSESSMENT: 1. COVID-19 pneumonitis with resolving pneumonia. 2. Clostridioides difficile infection with mild associated colitis on oral vancomycin. 3. Acute on chronic renal failure with the patient now at baseline levels. 4. Chronic obstructive pulmonary disease, secondary to #1, on chronic O2. 5. Type 2 diabetes mellitus. 6. Gastroesophageal reflux disease. 7. Hypertension. 8. Hyperlipidemia. PLAN: We will continue present supportive care. I will order an INR and check her coagulation studies in the morning. I will hold on lab for now since they are fairly well stabilized. We will plan for discharge to [facility] on 07/02/20. #[id number] MTDD
[2020-06-28] MEDS: LISINOPRIL 10 MG TAB PO SCH (21:00)
[2020-06-28] MEDS: SIMVASTATIN 10 MG TAB PO SCH (21:01)
[2020-06-29] MEDS: VANCOMYCIN HCL 125 MG CAP PO SCH ×3 (06:11→17:23)
[2020-06-29] MEDS: PANTOPRAZOLE SODIUM TAB 40 MG PO SCH (06:12)
[2020-06-29] MEDS: GLIMEPIRIDE 2 MG TAB PO SCH (07:28)
[2020-06-29] MEDS: INSULIN LISPRO 100 UNITS/ML PEN SUBCU SCH ×5 (07:30→20:33)
[2020-06-29] MEDS: ALBUTEROL INHALER 64 PUFF/8GM INH SCH ×4 (08:35→22:35)
[2020-06-29] MEDS: ALPRAZolam 0.5 MG TAB PO SCH ×2 (09:30→20:20)
[2020-06-29] MEDS: POTASSIUM CHLORIDE 20 MEQ TAB PO SCH (09:30)
[2020-06-29] MEDS: FUROSEMIDE 40 MG TAB PO SCH ×2 (09:31→17:23)
[2020-06-29] MEDS: guaiFENesin ER TAB 600 MG TAB PO SCH ×2 (09:31→20:21)
[2020-06-29] MEDS: METOPROLOL TARTRATE 50 MG TAB PO SCH ×2 (09:31→20:20)
[2020-06-29] MEDS: BIFIDOBACTERIUM INFANTIS 4 MG CAP PO SCH (09:31)
[2020-06-29] MEDS: CYCLOBENZAPRINE HCL 10 MG TAB PO SCH ×2 (09:31→20:20)
[2020-06-29] MEDS: DEXAMETHASONE 4 MG TAB PO SCH (09:31)
[2020-06-29] MEDS: VERAPAMIL HCL 40 MG TAB PO SCH ×2 (09:31→20:19)
[2020-06-29] MEDS ORDERED: WARFARIN SODIUM 1 MG TAB ONE (11:02)
[2020-06-29] MEDS: WARFARIN SODIUM 1 MG TAB PO SCH (12:18)
[2020-06-29] MEDS: LISINOPRIL 10 MG TAB PO SCH (20:20)
[2020-06-29] MEDS: SIMVASTATIN 10 MG TAB PO SCH (20:20)
--- NOTE | 2020-06-29 20:52 | PN ---
SUPERVISING PHYSICIAN: Prakash Page MD DATE: 06/29/20 SUBJECTIVE: The patient is sitting up in bed. She is feeling much better. She has no complaints of nausea, vomiting or constipation. She continues to have a little bit of diarrhea. OBJECTIVE: VITAL SIGNS: Temperature 98.1, heart rate 62, blood pressure 118/72, respiratory rate 20, O2 saturation 94% on 3 liters nasal cannula. RESPIRATORY: Diminished at the bases. HEART: Regular rate and rhythm. NEUROLOGIC: Alert and oriented times three. LABORATORY: INR is 2.25. No other labs or films are reported. ASSESSMENT: 1. COVID-19 pneumonitis with resolving pneumonia. 2. Clostridioides difficile infection with mild associated colitis on oral vancomycin. 3. Acute on chronic renal failure with the patient now at baseline levels. 4. Chronic obstructive pulmonary disease, secondary to #1, on chronic O2. 5. Type 2 diabetes mellitus. 6. Gastroesophageal reflux disease. 7. Hypertension. 8. Hyperlipidemia. PLAN: We will continue present supportive care. Hopefully, she can be discharged to [facility] on 07/02/20 after her 10 days of COVID isolation. I have ordered daily INRs due to her Coumadin therapy. For now, she is doing well. We will continue to monitor the patient closely and follow as needed. #[id number] [facility]
[2020-06-30] MEDS: VANCOMYCIN HCL 125 MG CAP PO SCH ×5 (00:02→23:40)
[2020-06-30] MEDS: PANTOPRAZOLE SODIUM TAB 40 MG PO SCH (05:50)
[2020-06-30] MEDS: GLIMEPIRIDE 2 MG TAB PO SCH (07:27)
[2020-06-30] MEDS: INSULIN LISPRO 100 UNITS/ML PEN SUBCU SCH ×3 (08:00→20:45)
[2020-06-30] MEDS: ALBUTEROL INHALER 64 PUFF/8GM INH SCH ×4 (09:30→22:00)
[2020-06-30] MEDS: POTASSIUM CHLORIDE 20 MEQ TAB PO SCH (10:07)
[2020-06-30] MEDS: ALPRAZolam 0.5 MG TAB PO SCH ×2 (10:07→20:39)
[2020-06-30] MEDS: DEXAMETHASONE 4 MG TAB PO SCH (10:07)
[2020-06-30] MEDS: guaiFENesin ER TAB 600 MG TAB PO SCH ×2 (10:07→20:39)
[2020-06-30] MEDS: VERAPAMIL HCL 40 MG TAB PO SCH ×2 (10:07→20:38)
[2020-06-30] MEDS: FUROSEMIDE 40 MG TAB PO SCH ×2 (10:07→17:04)
[2020-06-30] MEDS: METOPROLOL TARTRATE 50 MG TAB PO SCH ×2 (10:07→20:38)
[2020-06-30] MEDS: BIFIDOBACTERIUM INFANTIS 4 MG CAP PO SCH (10:07)
[2020-06-30] MEDS: CYCLOBENZAPRINE HCL 10 MG TAB PO SCH ×2 (10:07→20:39)
[2020-06-30] MEDS ORDERED: LOPERAMIDE CAP 2 MG CAP PO ONE ×2 (11:32→21:00)
[2020-06-30] MEDS: WARFARIN SODIUM 2 MG TAB PO SCH (11:56)
--- NOTE | 2020-06-30 19:13 | PN ---
SUPERVISING PHYSICIAN: Prakash Page MD DATE: 06/30/20 SUBJECTIVE: The patient reports she is feeling okay. She does not have any major complaint. She is still having diarrhea, though her recheck on her C. difficile was negative today. OBJECTIVE: VITAL SIGNS: Temperature 97.2, pulse 60, blood pressure 148/85, respirations 16 oxygen saturation 96% on 3 liter nasal cannula. GENERAL: The patient looks to be resting comfortably and in no acute distress. CHEST: Clear to auscultation, just a little diminished towards the bases. HEART: Regular rate and rhythm. ABDOMEN: Soft, non-tender, positive bowel sounds. EXTREMITIES: Without edema. NEUROLOGIC: Alert and oriented x 3. LABORATORY: No new studies today. Chemistries are showing glucose ranging between 144 and 241. RADIOLOGY: No additional radiographic studies. ASSESSMENT: 1. COVID-19 pneumonitis with resolving pneumonia. 2. Clostridioides difficile infection with mild associated colitis on oral vancomycin. 3. Acute on chronic renal failure with the patient now at baseline levels. 4. Chronic obstructive pulmonary disease, secondary to #1, on chronic O2. 5. Type 2 diabetes mellitus. 6. Gastroesophageal reflux disease. 7. Hypertension. 8. Hyperlipidemia. PLAN: Will continue to follow the patient with current plan of care with oral vancomycin. She is set to discharge to [facility] on 07/02/20. Will follow her INRs tomorrow and go ahead and recheck basic chemistries as well as any pertinent labs and x-rays as needed. Until we can discharge her back to outpatient management, we will continue to monitor and treat as needed. #[id number] [facility]
[2020-06-30] MEDS: LISINOPRIL 10 MG TAB PO SCH (20:38)
[2020-06-30] MEDS: SIMVASTATIN 10 MG TAB PO SCH (20:39)
[2020-06-30] MEDS ORDERED: amLODIPine BESYLATE 5 MG TAB PO ONE (21:00)
[2020-07-01] MEDS: VANCOMYCIN HCL 125 MG CAP PO SCH ×4 (06:15→23:47)
[2020-07-01] MEDS: PANTOPRAZOLE SODIUM TAB 40 MG PO SCH (06:15)
[2020-07-01] MEDS: IV SET AND CAP CHANGE INJ INJ SCH (06:15)
[2020-07-01] MEDS ORDERED: FUROSEMIDE 40 MG TAB ONE ×2 (07:01→16:38)
--- NOTE | 2020-07-01 07:59 | RAD ---
: 1945. Technique: Portable AP chest x-ray. Comparison: June 26, 2020 chest x-ray and June 22, [address] Clinical history: PNA; COVID. Heart size: Heart size within normal limits. Lungs: Pulmonary infiltrates show improvement. Inspiration is also improved. No new consolidation. Pleura: No pleural effusion. No pneumothorax. Mediastinum and luis: Unremarkable. Skeletal: Unremarkable. Support tubings: None. Impression: 1. Improving pneumonia. Electronically signed by: Rufus Brewer MD 07/01/2020 7:58 AM BUSINESS CONTINUITY CONSULTANT
[2020-07-01] MEDS: INSULIN LISPRO 100 UNITS/ML PEN SUBCU SCH ×4 (08:02→21:12)
[2020-07-01] MEDS: POTASSIUM CHLORIDE 20 MEQ TAB PO SCH (08:03)
[2020-07-01] MEDS: BIFIDOBACTERIUM INFANTIS 4 MG CAP PO SCH (08:03)
[2020-07-01] MEDS: CYCLOBENZAPRINE HCL 10 MG TAB PO SCH ×2 (08:03→20:45)
[2020-07-01] MEDS: GLIMEPIRIDE 2 MG TAB PO SCH (08:03)
[2020-07-01] MEDS: FUROSEMIDE 40 MG TAB PO SCH ×2 (08:04→17:15)
[2020-07-01] MEDS: METOPROLOL TARTRATE 50 MG TAB PO SCH ×2 (08:04→20:45)
[2020-07-01] MEDS: ALPRAZolam 0.5 MG TAB PO SCH ×2 (08:04→20:45)
[2020-07-01] MEDS: guaiFENesin ER TAB 600 MG TAB PO SCH ×2 (08:04→20:45)
[2020-07-01] MEDS: ALBUTEROL INHALER 64 PUFF/8GM INH SCH ×4 (10:30→20:10)
[2020-07-01] MEDS: VERAPAMIL HCL 40 MG TAB PO SCH ×2 (11:30→20:45)
[2020-07-01] MEDS: WARFARIN SODIUM 1 MG TAB PO SCH (12:08)
--- NOTE | 2020-07-01 16:01 | PN ---
SUPERVISING PHYSICIAN: Prakash Page MD DATE: 07/01/20 SUBJECTIVE: The patient had a little nausea this morning associated with her breakfast and lunch. No abdominal pains. Labs look to be stable and also her x- ray. She is set to go to [facility] tomorrow. OBJECTIVE: VITAL SIGNS: She remains afebrile. Temperature 98.1, pulse 73, blood pressure 140/73, respirations 17-18.oxygen saturation 95% on 2 liter nasal cannula. GENERAL: The patient looks to be resting comfortably and in no acute distress. CHEST: Clear to auscultation, just a little diminished towards the bases. HEART: Regular rate and rhythm. ABDOMEN: Soft, non-tender, positive bowel sounds. EXTREMITIES: Without edema. NEUROLOGIC: Alert and oriented x 3. LABORATORY: Chemistries are showing normal electrolytes with creatinine 1.26, blood sugar range between 139 and 295. MICROBIOLOGY: Blood cultures are negative, final after 5 days. She had a repeat C-difficile A and B yesterday, it was negative. RADIOLOGY: Chest x-ray this morning per radiology interpretation shows improving pneumonia. ASSESSMENT: 1. COVID-19 pneumonitis with resolving pneumonia with repeat testing being negative. 2. Clostridioides difficile infection with mild associated colitis on oral vancomycin. 3. Acute on chronic renal failure with the patient now at baseline levels. 4. Chronic obstructive pulmonary disease, secondary to #1, on chronic O2. 5. Type 2 diabetes mellitus. 6. Gastroesophageal reflux disease. 7. Hypertension. 8. Hyperlipidemia. PLAN: At this point, we will continue the vancomycin orally. She is set to transfer to [facility] in the morning. Will continue to follow labs as needed and hopefully be able to transfer patient tomorrow. Until then, we will continue to monitor and treat as needed. [facility][id number] [facility]
[2020-07-01] MEDS: LISINOPRIL 10 MG TAB PO SCH (20:45)
[2020-07-01] MEDS: SIMVASTATIN 10 MG TAB PO SCH (20:45)
[2020-07-02] MEDS: VANCOMYCIN HCL 125 MG CAP PO SCH ×3 (05:48→16:37)
[2020-07-02] MEDS: PANTOPRAZOLE SODIUM TAB 40 MG PO SCH (05:48)
[2020-07-02] MEDS: INSULIN LISPRO 100 UNITS/ML PEN SUBCU SCH ×3 (08:57→18:25)
[2020-07-02] MEDS: CYCLOBENZAPRINE HCL 10 MG TAB PO SCH ×2 (08:58→21:08)
[2020-07-02] MEDS: guaiFENesin ER TAB 600 MG TAB PO SCH ×2 (08:58→21:08)
[2020-07-02] MEDS: GLIMEPIRIDE 2 MG TAB PO SCH (08:58)
[2020-07-02] MEDS: FUROSEMIDE 40 MG TAB PO SCH ×2 (08:58→16:37)
[2020-07-02] MEDS: POTASSIUM CHLORIDE 20 MEQ TAB PO SCH (08:58)
[2020-07-02] MEDS: METOPROLOL TARTRATE 50 MG TAB PO SCH ×2 (08:58→21:08)
[2020-07-02] MEDS: ALPRAZolam 0.5 MG TAB PO SCH ×2 (08:58→21:08)
[2020-07-02] MEDS: VERAPAMIL HCL 40 MG TAB PO SCH ×2 (08:59→21:07)
[2020-07-02] MEDS: BIFIDOBACTERIUM INFANTIS 4 MG CAP PO SCH (08:59)
[2020-07-02] MEDS: ALBUTEROL INHALER 64 PUFF/8GM INH SCH ×4 (09:06→20:20)
[2020-07-02] MEDS: WARFARIN SODIUM 2 MG TAB PO SCH (11:15)
--- NOTE | 2020-07-02 17:10 | PN ---
SUPERVISING PHYSICIAN: Prakash Page MD DATE: 07/02/20 SUBJECTIVE: The patient is doing well. She is a little aggravated today because she thought she was going to [facility]. however, there is no bed available until tomorrow. She says her diarrhea has slowed significantly. OBJECTIVE: VITAL SIGNS: Temperature 97.9, pulse 74, blood pressure 106/60, respirations 16, oxygen saturation 95% on 2 liter nasal cannula. GENERAL: The patient looks to be resting comfortably and in no acute distress. CHEST: Clear to auscultation, just a little diminished towards the bases. HEART: Regular rate and rhythm. ABDOMEN: Soft, non-tender, positive bowel sounds. EXTREMITIES: Without edema. NEUROLOGIC: Alert and oriented x 3. LABORATORY: Chemistries are showing blood sugar ranging between 106 and 202. RADIOLOGY: No additional radiographic studies. ASSESSMENT: 1. COVID-19 pneumonitis with resolving pneumonia with repeat testing being negative. 2. Clostridioides difficile infection with mild associated colitis on oral vancomycin. 3. Acute on chronic renal failure with the patient now at baseline levels. 4. Chronic obstructive pulmonary disease, secondary to #1, on chronic O2. 5. Type 2 diabetes mellitus. 6. Gastroesophageal reflux disease. 7. Hypertension. 8. Hyperlipidemia. PLAN: I will continue to follow the patient closely anticipating discharge tomorrow to [facility]. Until we can transition patient to outpatient management, we will continue to monitor and treat as needed.. #[id number] MTDD
[2020-07-02] MEDS: SIMVASTATIN 10 MG TAB PO SCH (21:07)
[2020-07-02] MEDS: LISINOPRIL 10 MG TAB PO SCH (21:07)
[2020-07-03] MEDS: VANCOMYCIN HCL 125 MG CAP PO SCH ×3 (03:32→11:40)
[2020-07-03] MEDS: INSULIN LISPRO 100 UNITS/ML PEN SUBCU SCH ×5 (03:33→20:35)
[2020-07-03] MEDS ORDERED: VANCOMYCIN HCL 125 MG CAP PO ONE (03:55)
[2020-07-03] MEDS: PANTOPRAZOLE SODIUM TAB 40 MG PO SCH (06:28)
[2020-07-03] MEDS: METOPROLOL TARTRATE 50 MG TAB PO SCH ×2 (08:26→20:27)
[2020-07-03] MEDS: BIFIDOBACTERIUM INFANTIS 4 MG CAP PO SCH (08:26)
[2020-07-03] MEDS: FUROSEMIDE 40 MG TAB PO SCH ×2 (08:27→17:06)
[2020-07-03] MEDS: POTASSIUM CHLORIDE 20 MEQ TAB PO SCH (08:27)
[2020-07-03] MEDS: CYCLOBENZAPRINE HCL 10 MG TAB PO SCH ×2 (08:27→20:26)
[2020-07-03] MEDS: ALPRAZolam 0.5 MG TAB PO SCH ×2 (08:27→20:26)
[2020-07-03] MEDS: guaiFENesin ER TAB 600 MG TAB PO SCH ×2 (08:27→20:27)
[2020-07-03] MEDS: VERAPAMIL HCL 40 MG TAB PO SCH ×2 (08:27→20:26)
[2020-07-03] MEDS: GLIMEPIRIDE 2 MG TAB PO SCH (08:27)
[2020-07-03] MEDS: ALBUTEROL INHALER 64 PUFF/8GM INH SCH ×5 (08:30→21:30)
[2020-07-03] MEDS: WARFARIN SODIUM 1 MG TAB PO SCH (11:40)
--- NOTE | 2020-07-03 19:50 | PN ---
SUPERVISING PHYSICIAN: Mike Dale M.D. DATE: 07/03/20 SUBJECTIVE: The patient was actually supposed to be transferred to [facility] today. Apparently they do not have a bed until tomorrow. She has actually finished up her Vancomycin for treatment of her C-Diff. Her diarrhea has significantly decreased, although she has chronic diarrhea. She has had no increase in shortness of breath. She is feeling well. She is just anxious to get started on her rehab program. OBJECTIVE: VITAL SIGNS: Temperature 98.1, pulse 69, blood pressure 115/74, respirations 18, satting 95% on nasal cannula at 2 liters. GENERAL: The patient looks to be resting comfortably and in no acute distress. CHEST: Clear to auscultation, just a little diminished towards the bases. HEART: Regular rate and rhythm. ABDOMEN: Soft, non-tender, positive bowel sounds. EXTREMITIES: Without edema. NEUROLOGIC: Alert and oriented x 3. LABORATORY: No laboratory studies were completed today as she was to be transferred and her labs have been stable. Blood sugars are ranging between 78 and 173. ASSESSMENT: 1. COVID-19 pneumonitis with resolving pneumonia with repeat testing being negative. 2. Clostridioides difficile infection with mild associated colitis on oral vancomycin. 3. Acute on chronic renal failure with the patient now at baseline levels. 4. Chronic obstructive pulmonary disease, secondary to #1, on chronic O2. 5. Type 2 diabetes mellitus. 6. Gastroesophageal reflux disease. 7. Hypertension. 8. Hyperlipidemia. PLAN: The patient is to be transferred tomorrow to [facility] for continuation of rehab. They have reassured us they have a bed available tomorrow. I have actually put her discharge in already. She has finished a complete course of her Vancomycin. She has finished a complete course of treatment for COVID and she just needs to start a good rehab program. Until we can transfer her back to an outpatient status into the rehab program at [facility] will continue to monitor and treat as needed. [facility][id number]
[2020-07-03] MEDS: SIMVASTATIN 10 MG TAB PO SCH (20:26)
[2020-07-03] MEDS: LISINOPRIL 10 MG TAB PO SCH (20:27)
[2020-07-04] MEDS: IV SET AND CAP CHANGE INJ INJ SCH (01:45)
[2020-07-04] MEDS: PANTOPRAZOLE SODIUM TAB 40 MG PO SCH (06:10)
[2020-07-04] MEDS: CYCLOBENZAPRINE HCL 10 MG TAB PO SCH (08:34)
[2020-07-04] MEDS: GLIMEPIRIDE 2 MG TAB PO SCH (08:34)
[2020-07-04] MEDS: guaiFENesin ER TAB 600 MG TAB PO SCH (08:35)
[2020-07-04] MEDS: POTASSIUM CHLORIDE 20 MEQ TAB PO SCH (08:35)
[2020-07-04] MEDS: ALPRAZolam 0.5 MG TAB PO SCH (08:35)
[2020-07-04] MEDS: BIFIDOBACTERIUM INFANTIS 4 MG CAP PO SCH (08:35)
[2020-07-04] MEDS: METOPROLOL TARTRATE 50 MG TAB PO SCH (08:35)
[2020-07-04] MEDS: VERAPAMIL HCL 40 MG TAB PO SCH (08:35)
[2020-07-04] MEDS: ALBUTEROL INHALER 64 PUFF/8GM INH SCH (08:51)
[2020-07-04] MEDS: FUROSEMIDE 40 MG TAB PO SCH (09:35)
[2020-07-04] MEDS: INSULIN LISPRO 100 UNITS/ML PEN SUBCU SCH (09:35)
[2020-07-04 10:14] VITALS: BP 106/60; TEMP 98.5; O2SAT 94
[2020-07-04] MEDS: WARFARIN SODIUM 2 MG TAB PO SCH (11:55)
[2020-07-04] MEDS ORDERED: WARFARIN SODIUM 3 MG TAB PO ONE (12:11)
[2020-07-04] MEDS ORDERED: WARFARIN SODIUM 1 MG TAB ONE (12:18)
--- NOTE | 2020-07-04 14:14 | DS ---
SUPERVISING PHYSICIAN: Mike Dale MD DISCHARGE DIAGNOSIS: 1. COVID-19 pneumonitis with resolving pneumonia with repeat testing negative. 2. Clostridioides difficile infection with mild associated colitis on oral vancomycin. 3. Acute on chronic renal failure with the patient at baseline levels. 4. Chronic obstructive pulmonary disease, secondary to #1, on chronic O2. 5. Type 2 diabetes mellitus. 6. Gastroesophageal reflux disease. 7. Hypertension. 8. Hyperlipidemia. HISTORY OF PRESENT ILLNESS: This is a 75-year-old female patient who had been feeling poorly for a week prior to coming to the Emergency Room. The day before she cam to the ER, she had progressive weakness as well as increasing shortness of breath. She does have a significant history of chronic obstructive pulmonary disease. Her initial vital signs in the ER showed temperature 97.5, heart rate 66, respiratory rate 18, O2 saturation 94% on 3 liters nasal cannula. At some point, they did have to up to 4 liters. She wears 2 liters normally at home. Her labs showed WBC 4,400, hemoglobin 12.2, hematocrit 37. D-dimer 486. PTT 43.2, fibrinogen 450. Sodium 133, potassium 4.4, chloride 96, BUN 23, creatinine 2.29. Baseline creatinine is about 1.2. Glucose 130, troponin 0.03. COVID was positive. C. difficile was positive for antigen, negative for toxin. Chest x-ray showed no acute cardiopulmonary process. CT of the chest showed 1) Abnormal lung cuello bilaterally, right worse than left, patchy peripheral mixed ground glass and interstitial subsegmental peripheral areas of pneumonitis, more dense coalescent consolidation in each posterior lung base with a small right pleural effusion and questionable tiny left pleural effusion. Findings suggest a COVID or viral pneumonitis, possibly with a superimposed atelectasis or bacterial pneumonia in the lung bases. 2) Cardiomegaly. 3) No peripheral pulmonary mass or pneumothorax seen. She received azithromycin and Rocephin in the Emergency Room as well as multiple breathing treatments. She was admitted to the hospital in stable condition. HOSPITAL COURSE: She was admitted to the hospital and routine pneumonia and COVID guidelines were initiated. She was continued on azithromycin and Rocephin as well as given Decadron and Remdesivir as well as aggressive pulmonary hygiene including albuterol, both scheduled and p.r.n. She did receive some Lovenox initially as her home medications did not show that she was on Coumadin, but then it was found that her home medications included Coumadin. Her PT/INR was checked routinely. She had proton pump inhibitor for ulcer prophylaxis as well as Align and guaifenesin. She was also started on oral vancomycin for C. difficile colitis. She slowly but progressively improved over the next several days. An [facility] referral was initiated as the patient was very weak and it was felt she would benefit from some physical therapy. Initially, [facility] has protocol on COVID patients and she was accepted pending their routine isolation guidelines. She continued to have quite a bit of diarrhea due to C. difficile, but other than that, her condition improved. She completed her antibiotics, steroids and Remdesivir. Initially, they said they would take her 10 days after the diagnosis of her COVID and it was felt that due to a C. difficile infection she could stay in the hospital until her transfer to [facility]. There was then some question about her C. difficile infection. She was actually initially discharged yesterday, but due to transfer complications, she will be discharged today and sent to [facility] in [place]. She will be discharged in stable condition. LABORATORY: WBCs 4.4. They were as low as 1.7 and her last WBC was 6,700. Hemoglobin and hematocrit remained stable at 12.1 and 35.4. Initial sodium was 133 and remained stable at 135 to 138. Potassium stable at 3.9, chloride at 102. BUN initially 23 and is now 36. Creatinine was 2.29 on admission and is now 1.26, which is her baseline. AST was 64 and is now 29. Other liver enzymes were within normal limits. Creatinine kinase 646 and is now 159. Troponin was 0.02. C-reactive protein was 2.7 and is now less than 0.8. MICROBIOLOGY: Preliminary blood cultures show no growth after 5 days. RADIOLOGY: Chest CT was per the history of present illness. Her final chest x- ray showed improving pneumonia. DISCHARGE PLAN: The patient will be discharged to [facility] in [place] in stable condition. She is to resume her previous diet and increase her activity as tolerated and as per physical therapy. She is to followup with Jose Ly MD, after discharge from [facility]. She is to resume her previous medications. We recommended she have an INR checked periodically at [facility]. She is to return to the hospital or followup with Dr. Ly for any problems or complications. DISCHARGE MEDICATIONS: 1. Xanax. 2. Warfarin. 3. Simvastatin. 4. Metoprolol. 5. Lisinopril. 6. Furosemide. 7. Cyclobenzaprine. 8. Albuterol sulfate. 9. Folic acid. 10. Verapamil. 11. Potassium chloride. 12. Acetaminophen. 13. Milk of Magnesia. 14. Glimepiride. 15. Align. #[id number] [facility]
== END 2020-07-04 11:50 | DRG 871 ==
LOC: ER 21:13 → OBSVTOIN 06-22 00:59 → MS 06-22 00:59
PROVIDERS: ADMIT Nurse Practitioner Acute Care; ATTEND Nurse Practitioner Acute Care
PROC: XW033E5 Introduction of Remdesivir Anti-infective into Peripheral Vein, Percutaneous Approach, New Technology Group 5 (ICD-10-PCS; principal; 2020-06-22)
DX: A41.89 Other specified sepsis (principal); U07.1 COVID-19; J12.89 Other viral pneumonia; A04.72 Enterocolitis due to Clostridium difficile, not specified as recurrent; N17.9 Acute kidney failure, unspecified; J44.0 Chronic obstructive pulmonary disease with (acute) lower respiratory infection; J44.1 Chronic obstructive pulmonary disease with (acute) exacerbation; N18.9 Chronic kidney disease, unspecified; K21.9 Gastro-esophageal reflux disease without esophagitis; I12.9 Hypertensive chronic kidney disease with stage 1 through stage 4 chronic kidney disease, or unspecified chronic kidney disease; E78.5 Hyperlipidemia, unspecified; E11.22 Type 2 diabetes mellitus with diabetic chronic kidney disease; Z79.01 Long term (current) use of anticoagulants; Z99.81 Dependence on supplemental oxygen; Z88.8 Allergy status to other drugs, medicaments and biological substances; Z88.7 Allergy status to serum and vaccine; Z88.6 Allergy status to analgesic agent; Z88.2 Allergy status to sulfonamides; Z88.0 Allergy status to penicillin; Z88.5 Allergy status to narcotic agent; Z66 Do not resuscitate; Z86.718 Personal history of other venous thrombosis and embolism; Z87.891 Personal history of nicotine dependence; Z79.02 Long term (current) use of antithrombotics/antiplatelets; Z79.4 Long term (current) use of insulin; Z79.899 Other long term (current) drug therapy

== ENCOUNTER → 2020-07-25 | Outpatient (CLI) | payer MEDICARE | LOC: GT 18:39 | PROVIDERS: ATTEND Family Medicine | DX: Z79.01 Long term (current) use of anticoagulants (principal) ==

== ENCOUNTER → 2020-07-31 | Outpatient (CLI) | payer MEDICARE | LOC: GT 02:22 | PROVIDERS: ATTEND Family Medicine | DX: Z79.01 Long term (current) use of anticoagulants (principal) ==

== ENCOUNTER → 2020-08-07 | Outpatient (CLI) | payer MEDICARE | LOC: GT 04:28 | PROVIDERS: ATTEND Family Medicine | DX: Z79.01 Long term (current) use of anticoagulants (principal) ==

== ENCOUNTER → 2020-08-22 | Outpatient (CLI) | payer MEDICARE | LOC: GT 04:09 | PROVIDERS: ATTEND Family Medicine | DX: Z79.01 Long term (current) use of anticoagulants (principal) ==

== ENCOUNTER → 2020-08-28 | Outpatient (CLI) | payer MEDICARE | LOC: GT 14:47 | PROVIDERS: ATTEND Family Medicine | DX: Z79.01 Long term (current) use of anticoagulants (principal) ==

== ENCOUNTER → 2020-09-18 | Outpatient (CLI) | payer MEDICARE | LOC: GT 16:24 | PROVIDERS: ATTEND Family Medicine | DX: I10 Essential (primary) hypertension (principal) ==

== ENCOUNTER → 2020-09-28 | Outpatient (CLI) | payer MEDICARE | LOC: BFHH 09:31 | PROVIDERS: ATTEND Family Medicine | DX: I10 Essential (primary) hypertension (principal); E11.8 Type 2 diabetes mellitus with unspecified complications; Z79.01 Long term (current) use of anticoagulants; E78.00 Pure hypercholesterolemia, unspecified; D64.9 Anemia, unspecified; I51.9 Heart disease, unspecified ==